=== PATIENT | male | born 1960 | race Caucasian/White ===

== ENCOUNTER 2016-12-01 11:49 | Inpatient (IN) | payer OTHER ==
[2016-12-01 11:54] VITALS: BMI 30.6
[2016-12-01] MEDS ORDERED: FAMOTIDINE 20 MG/50 ML IVPB 50 ML IVPB ONE ×2 (12:26→12:36)
--- NOTE | 2016-12-01 12:26 | PDOC ---
History of Present Illness - General History Source: Patient, Old Records Exam Limitations: No Limitations <Diana Lowe - Last Filed: 12/01/16 14:28> - General History Source: Patient, Family, Spouse, Old Records Exam Limitations: No Limitations - History of Present Illness Initial Comments: 12/01/16 12:30 The patient is a 56-year-old man, accompanied by his and son, with a significant past medical history of hypertension, hypercholesterolemia, myocardial infarction status post cardiac catheterization x3, cardiomegaly, elevated enzymes who presents to the emergency department for further evaluation of abdominal pain. Upon ED arrival, patient was noted to have an oral temperature of 97.6, heart rate of 89, respiratory rate of 20, blood pressure of 157/86 and an oxygen saturation of 96% on room air. As per patient , his symptoms started yesterday, as he did not feel like his usual self. He admits he was experiencing epigastric discomfort but did not pay too much attention to it. This morning, his abdominal pain woke him up from his sleep. He states that his pain today has worsen, as it progressed into a burning sensation upon his epigastrium and feels a as if his epigastrium is hard. His pain is non-radiating, constant since waking up today with a rated 8/10 in severity. He reports associated symptoms of nausea, lightheadedness, palpitations, and generalized body itching He admits to experiencing similar symptoms in the past, for which he underwent an endoscopy and was found to have ulcers. He denies any increase in caffeine intake. Off note: Patient underwent both a stress test and echocardiogram on 07/01/2013 which revealed a small inferolateral ischemia and an ejection fraction of 56% and mild mitral and tricuspid regurgitation, respectively. He denies chest pain, cough, shortness of breath, headache He denies vomiting, diarrhea, changes in bowel habits, dysuria, hematuria, urinary frequency/urgency, flank pain, testicular pain or penile discharge. Allergies: Camphor. Eucalyptus, Menthol. Turpentine oil. Past Surgical History: Kidney stone removal x3. right inguinal hernia repair. Cardiac catheterization x3. Social History: No tobacco and recreational drug use. He reports occasional EtOH use (last drink was approximately 1 week ago) Primary Care Physician: Dr. Edgar Bautista Foot Cutter: Dr. Kirk Calles. <Swati Lovelace - Last Filed: 12/01/16 14:33> - General Chief Complaint: Chest Pain Stated Complaint: PALPITATIONS Time Seen by Provider: 12/01/16 12:11 Past History - Past Medical History Anemia: No Asthma: No Cancer: No Cardiac Disorders: Yes (1 LA, 3 CATHS, CARDIOMEGALY) CVA: No COPD: No CHF: No Dementia: No Diabetes: No GI Disorders: Yes (ABD. PAIN, GALLSTONES) Disorders: No HTN: Yes Hypercholesterolemia: Yes Liver Disease: Yes (ELEVATED ENZYMES, STILL DRINKS ETOH A FEW X PER WEEK) Suicide Attempt (Hx): No Seizures: No Thyroid Disease: No - Surgical History Abdominal Surgery: Yes (RIGHT INGUINAL HERNIA REPAIR) Appendectomy: No Cardiac Surgery: Yes (CARDIAC CATHETERIZATION) Cholecystectomy: No Lung Surgery: No Neurologic Surgery: No Orthopedic Surgery: No - Immunization History Immunization Up to Date: Yes - Psycho/Social/Smoking Cessation Hx Anxiety: No Suicidal Ideation: No Smoking Status: No Smoking History: Never smoked Have you smoked in the past 12 months: No Number of Cigarettes Smoked Daily: 0 Hx Alcohol Use: No Drug/Substance Use Hx: No Substance Use Type: Alcohol Hx Substance Use Treatment: No <Diana Lowe - Last Filed: 12/01/16 14:28> <Swati Lovelace - Last Filed: 12/01/16 14:33> - Past Medical History Allergies/Adverse Reactions: Allergies Allergy/AdvReac Type Severity Reaction Status Date / Time camphor [From Vicks Vaporub] Allergy Verified 12/01/16 11:54 eucalyptus Allergy Verified 12/01/16 11:54 [From Vicks Vaporub] eucalyptus oil Allergy Verified 12/01/16 11:54 [From Vicks Vaporub] menthol [From Vicks Vaporub] Allergy Verified 12/01/16 11:54 turpentine oil Allergy Verified 12/01/16 11:54 [From Vicks Vaporub] Home Medications: Ambulatory Orders Apixaban [Eliquis] 5 mg PO BID 02/22/16 Atorvastatin Ca [Lipitor] 20 mg PO HS 02/22/16 Diltiazem HCl [Diltiazem 24Hr Cd] 180 mg PO DAILY 02/22/16 Nebivolol HCl [Bystolic] 10 mg PO DAILY 02/22/16 Alfuzosin HCl [Uroxatral] 10 mg PO DAILY 12/01/16 Amitriptyline HCl [Elavil -] 25 mg PO HS 12/01/16 Review of Systems - Review of Systems Able to Perform ROS?: Yes Comments:: 12/01/16 12:34 CONSTITUTIONAL: Absent: fever, chills, diaphoresis, generalized weakness, malaise, loss of appetite HEENT: Absent: rhinorrhea, nasal congestion, throat pain, throat swelling, difficulty swallowing, mouth swelling, ear pain, eye pain, visual Changes CARDIOVASCULAR: Present: Palpitations. Lightheadedness. Absent: chest pain, syncope, irregular heart rate,peripheral edema RESPIRATORY: Absent: cough, shortness of breath, dyspnea with exertion, orthopnea, wheezing, stridor, hemoptysis GASTROINTESTINAL: Present: Abdominal Pain. Nausea. Absent: abdominal distension , vomiting, diarrhea, constipation, melena, hematochezia GENITOURINARY: Absent: dysuria, frequency, urgency, hesitancy, hematuria, flank pain, genital pain MUSCULOSKELETAL: Absent: myalgia, arthralgia, joint swelling SKIN: Present: Generalized body itching. Absent: rash, pallor HEMATOLOGIC/IMMUNOLOGIC: Absent: easy bleeding, easy bruising, lymphadenopathy, frequent infections ENDOCRINE:Absent: unexplained weight gain, unexplained weight loss, heat intolerance, cold intolerance NEUROLOGIC: Absent: headache, focal weakness or paresthesias, dizziness, unsteady gait, seizure, mental status changes, bladder or bowel incontinence PSYCHIATRIC: Absent: anxiety, depression, suicidal or homicidal ideation, hallucinations <Swati Lovelace - Last Filed: 12/01/16 14:33> *Physical Exam - Vital Signs Last Vital Signs Temp Pulse Resp BP Pulse Ox 97.6 F 89 20 157/86 96 12/01/16 11:51 12/01/16 11:51 12/01/16 11:51 12/01/16 11:51 12/01/16 11:51 <Diana Lowe - Last Filed: 12/01/16 14:28> - Vital Signs Last Vital Signs Temp Pulse Resp BP Pulse Ox 97.6 F 89 20 157/86 96 12/01/16 11:51 12/01/16 11:51 12/01/16 11:51 12/01/16 11:51 12/01/16 11:51 - Physical Exam Comments: 12/01/16 12:36 GENERAL: Well developed, well nourished. Awake and alert. No acute distress. HEENT: Normocephalic, atraumatic. PERRLA, EOMI. No conjunctival pallor. Sclera are non-icteric. Moist mucous membranes. Oropharynx is clear. NECK: Supple. Full ROM. No JVD. CARDIOVASCULAR: Regular rate and rhythm. No murmurs, rubs, or gallops. PULMONARY: No evidence of respiratory distress. Lungs clear to auscultation bilaterally. No wheezing, rales or rhonchi. ABDOMINAL: Soft. There is some epigatsric and right upper quadrant tenderness without rebound or guarding. Non-distended. No organomegaly. Normoactive bowel sounds. MUSCULOSKELETAL: Normal range of motion at all joints. No bony deformities or tenderness. No CVA tenderness. EXTREMITIES: No cyanosis. No clubbing. No edema. No calf tenderness. SKIN: Warm and dry. Normal capillary refill. No rashes. No jaundice. NEUROLOGICAL: Alert, awake, appropriate. Cranial nerves 2-12 intact. Normal speech. PSYCHIATRIC: Cooperative. Good eye contact. Appropriate mood and affect. <Swati Lovelace - Last Filed: 12/01/16 14:33> ED Treatment Course - LABORATORY CBC & Chemistry Diagram: 12/01/16 12:26 12/01/16 12:26 <Diana Lowe - Last Filed: 12/01/16 14:28> - LABORATORY CBC & Chemistry Diagram: 12/01/16 12:26 12/01/16 12:26 - RADIOLOGY Radiograph Interpretation: 12/01/16 13:19 EXAM: RAD/CHEST X-RAY PORTABLE IMPRESSION: A semi-apical lordotic view reveals a large heart, normal aorta, normal shaylee and clear lung diego. The angles are sharp. The bones and soft tissues are intact. <Swati Lovelace - Last Filed: 12/01/16 14:33> Medical Decision Making - Medical Decision Making 12/01/16 12:57 56-year-old male with history of obstructive sleep apnea, kidney stones, hypertension, LA and GERD presents to the emergency Department with complaints of epigastric pain, nausea and palpitations this morning. Differential diagnosis includes but is not limited to: Pancreatitis, GERD, gastritis, peptic ulcer disease, atypical presentation of ACS, gallbladder disease. Plan: 1. Labs 2. EKG 3. Chest x-ray 4. Pain management 5. Urine analysis 6. Observe and reevaluate 12/01/16 14:28 Addendum: Labs were reviewed and were noted in the EMR. The first set of cardiac enzymes is negative. Given his PMHx and cardiac RF, will admit to tele observation for serial cardiac enzymes. The case was discussed with his PCP who agrees with this plan. <Diana Lowe - Last Filed: 12/01/16 14:28> - Medical Decision Making 12/01/16 14:[address] Edgar Abbasi out to his mobile phone. Case was discussed. 12/01/16 14:24 MicroBlogged Hospitalist. Immediate response. Case was discussed. 12/01/16 14:[address] Kirk Calles. <Swati Lovelace - Last Filed: 12/01/16 14:33> *DC/Admit/Observation/Transfer - Discharge Dispostion Admit: Yes - Attestations Physician Attestion: 12/01/16 12:59 I, Dr. Diana Lowe, attest that the scribes documentation that appears above has been prepared under my direction and personally reviewed by me in its entirety. I confirmed that the note above accurately reflects all work, treatment, procedures, and medical decision-making performed by me. <Diana Lowe - Last Filed: 12/01/16 14:28> - Attestations Scribe Attestion: 12/01/16 12:37 Documentation prepared by Swati Lovelace, acting as medical i d sales for Diana Lowe MD. <Swati Lovelace - Last Filed: 12/01/16 14:33> Diagnosis at time of Disposition: Epigastric abdominal pain, Chest pain - Discharge Dispostion Condition at time of disposition: Stable - Referrals Referrals: Edgar Bautista MD [Primary Care Provider] -
[2016-12-01] MEDS ORDERED: IBUPROFEN 600 MG TABLET (FP) PO ONE (12:30)
[2016-12-01 12:57] LABS: BASOPHIL 0.5 % (0-2.0); MCH 28.7 pg (25.7-33.7); MCHC 33.4 g/dl (32.0-35.9); MEAN CELL VOLUME 85.7 fl (80-96); MEAN PLT VOLUME 9.4 fl (7.5-11.1); NEUTROPHILS 76.7 % (42.8-82.8); PLATELET COUNT 149 K/MM3 (134-434); RDW 12.8 % (11.9-15.9); WHITE BLOOD COUNT 8.6 K/mm3 (4.0-10.0)
[2016-12-01] MEDS ORDERED: MAG HYDROX/AL HYDROX/SIMETH 30 ML UNIT-DOSE CUP ONE (12:59)
[2016-12-01 13:31] LABS: HIV 1 & 2 AB NEGATIVE; HIV 1 AGp24 NEGATIVE
[2016-12-01 13:44] LABS: ALBUMIN 3.4 g/dl (3.4-5.0); ALK PHOS 77 U/L (45-117); ANION GAP 11 (8-16); BILIRUBIN,TOTAL 0.4 mg/dL (0.2-1.0); CALCIUM 8.3 mg/dL (8.5-10.1); CO2 24 mmol/L (21-32); COCKROFT - GAULT 102.93; CREATININE 0.9 mg/dL (0.7-1.3); GLUCOSE,RANDOM 116 mg/dL (74-106); PHOSPHOROUS 3.3 mg/dL (2.5-4.9); SGOT/AST 41 U/L (15-37); SGPT/ALT 60 U/L (12-78); TOT PROT 6.4 g/dl (6.4-8.2); TROPONIN I < 0.02 ng/ml (0.00-0.05)
[2016-12-01 14:54] LABS: URINE APPEARANCE CLEAR; URINE BILIRUBIN NEGATIVE (NEGATIVE); URINE BLOOD NEGATIVE (NEGATIVE); URINE COLOR YELLOW; URINE GLUCOSE (UA) NEGATIVE (NEGATIVE); URINE KETONE NEGATIVE (NEGATIVE); URINE LEUK ESTERASE NEGATIVE (NEGATIVE); URINE NITRITE NEGATIVE (NEGATIVE); URINE UROBILINOGEN NEGATIVE E.U./dl (0.2-1.0)
[2016-12-01 15:23] LABS: URINE PROTEIN 2+ (NEGATIVE)
[2016-12-01 15:26] LABS: GRANULAR CASTS 1 /lpf; URINE HYALINE CAST 4 /lpf; URINE MUCUS MODERATE; URINE RBC <1 /hpf (0-3); URINE WBC 1 /hpf (3-5)
--- NOTE | 2016-12-01 16:11 | EKG ---
Test Reason : Blood Pressure : / mmHG Vent. Rate : 079 BPM Atrial Rate : 079 BPM P-R Int : 152 ms QRS Dur : 114 ms QT Int : 386 ms P-R-T Axes : 065 036 068 degrees QTc Int : 442 ms NORMAL SINUS RHYTHM MINIMAL VOLTAGE CRITERIA FOR LVH, MAY BE NORMAL VARIANT NONSPECIFIC T WAVE ABNORMALITY ABNORMAL ECG WHEN COMPARED WITH ECG OF 22-FEB-2016 18:47, NO SIGNIFICANT CHANGE WAS FOUND Confirmed by DOMINIC THEODORE MD ([id number]) on 12/01/2016 4:10:51 PM Referred By: Confirmed By:DOMINIC THEODORE MD
--- NOTE | 2016-12-01 17:12 | HP ---
CHIEF COMPLAINT: Abdominal pain, epigastric discomfort PCP: Dr. Edgar Bautista Non Destructive Evaluation Specialist: Dr. Kirk Calles. HISTORY OF PRESENT ILLNESS: The patient is a 56-year-old man with a significant past medical history of hypertension, hypercholesterolemia, myocardial infarction status post cardiac catheterization x3, cardiomegaly and elevated enzymes. He presented to the ED for who presents to the emergency department for further evaluation of abdominal pain and epigastric burning pain that begun yesterday. He states that the epigastric pain is constant, radiates to his right hand, with moderate intensity. He reported that his pain is associated with nausea, lightheadedness, palpitations, and generalized body itching. ER course was notable for: (1) K. 3.4, AST 41 (2) EKG NSR-non specific t wave abnormality (3) Troponin negative x 1 Recent Travel: denies PAST MEDICAL HISTORY: hypertension, hypercholesterolemia, myocardial infarction status post cardiac catheterization x3, cardiomegaly PAST SURGICAL HISTORY:Kidney stone removal x3. right inguinal hernia repair. Cardiac catheterization x3. Social History: Smoking:denies Alcohol:occasional EtOH use, non recent Drugs: denies Family History: Allergies camphor [From Vicks Vaporub] Allergy (Verified 12/01/16 11:54) eucalyptus [From Vicks Vaporub] Allergy (Verified 12/01/16 11:54) eucalyptus oil [From Vicks Vaporub] Allergy (Verified 12/01/16 11:54) menthol [From Vicks Vaporub] Allergy (Verified 12/01/16 11:54) turpentine oil [From Vicks Vaporub] Allergy (Verified 12/01/16 11:54) HOME MEDICATIONS: Home Medications Medication Instructions Recorded Apixaban [Eliquis] 5 mg PO BID 02/22/16 Atorvastatin Ca [Lipitor] 20 mg PO HS 02/22/16 Diltiazem HCl [Diltiazem 24Hr Cd] 180 mg PO DAILY 02/22/16 Nebivolol HCl [Bystolic] 10 mg PO DAILY 02/22/16 Alfuzosin HCl [Uroxatral] 10 mg PO DAILY 12/01/16 Amitriptyline HCl [Elavil -] 25 mg PO HS 12/01/16 REVIEW OF SYSTEMS CONSTITUTIONAL: Absent: fever, chills, diaphoresis, generalized weakness, malaise, weight change HEENT: Absent: rhinorrhea, nasal congestion, throat pain, throat swelling, difficulty swallowing, mouth swelling, ear pain, eye pain, visual changes CARDIOVASCULAR: Absent: chest pain, syncope, palpitations, irregular heart rate, lightheadedness , peripheral edema RESPIRATORY: Absent: cough, shortness of breath, dyspnea with exertion, orthopnea, wheezing, stridor, hemoptysis GASTROINTESTINAL: Present: epigastric "burning" sensation associated with nausea/vomiting/ dizziness and palpitations, +pain on light palpation of epigastric region GENITOURINARY: Absent: dysuria, frequency, urgency, hesitancy, hematuria, flank pain, genital pain MUSCULOSKELETAL: Absent: myalgia, arthralgia, joint swelling, back pain, neck pain SKIN: Absent: rash, itching, pallor HEMATOLOGIC/IMMUNOLOGIC: Absent: easy bleeding, easy bruising, lymphadenopathy, frequent infections ENDOCRINE: Absent: unexplained weight gain, unexplained weight loss, heat intolerance, cold intolerance NEUROLOGIC: Absent: headache, focal weakness or paresthesias, dizziness, unsteady gait, seizure, mental status changes, bladder or bowel incontinence PSYCHIATRIC: Absent: anxiety, depression, suicidal or homicidal ideation, hallucinations. PHYSICAL EXAMINATION Vital Signs - 24 hr 12/01/16 12/01/16 15:52 15:54 Temperature 97.8 F Pulse Rate [ 72 Apical] Respiratory 17 Rate Blood Pressure 159/89 [Right Arm] O2 Sat by Pulse 98 Oximetry (%) GENERAL: Awake, alert, and fully oriented, in no acute distress. HEAD: Normal with no signs of trauma. EYES: Pupils equal, round and reactive to light, extraocular movements intact, sclera anicteric, conjunctiva clear. No lid lag. EARS, NOSE, THROAT: Ears normal, nares patent, oropharynx clear without exudates. Moist mucous membranes. NECK: Normal range of motion, supple without lymphadenopathy, JVD, or masses. LUNGS: Breath sounds equal, clear to auscultation bilaterally. No wheezes HEART: Regular rate and rhythm ABDOMEN: +bowel sounds, epigastric "burning" sensation associated with nausea/ vomiting/dizziness and palpitations, +pain on light palpation of epigastric region MUSCULOSKELETAL: Normal range of motion at all joints. No bony deformities or tenderness. No CVA tenderness. UPPER EXTREMITIES: 2+ pulses, warm, well-perfused. No cyanosis. No clubbing. No peripheral edema. LOWER EXTREMITIES: 2+ pulses, warm, well-perfused. No calf tenderness. No peripheral edema. NEUROLOGICAL: Normal speech. steady gait PSYCHIATRIC: Cooperative. Good eye contact. Appropriate mood and affect. SKIN: Warm, dry, normal turgor, no rashes or lesions noted, normal capillary refill. ASSESSMENT/PLAN: The patient is a 56-year-old man with a significant past medical history of hypertension, hypercholesterolemia, myocardial infarction status post cardiac catheterization x3, cardiomegaly and elevated enzymes. He presented to the ED for who presents to the emergency department for further evaluation of abdominal pain and epigastric burning pain that begun yesterday. He states that the epigastric pain is constant, radiates to his right hand, with moderate intensity. He reported that his pain is associated with nausea, lightheadedness, palpitations, and generalized body itching. On exam, he states that he has had this epigastric discomfort in the past but this time the burning sensation is much worse. He denies chest pain or shortness of breath. GI: Abdominal pain/Epigastric pain associated with palpitations/Rule out ACS- acute ACS vs, pancreatitis, gastritis, ulcers Assessment/Plan: Troponin negative x 1, continue to trend Will start on Protonix BID IV for the epigastric discomfort On clear liquids diet Schedule Zofran q6 and monitor If worsening epigastric/abdominal pain, consider GI consult Cardiology consult Cardiology: Atrial fibrillation Assessment/Plan: Now in normal sinus rhythm Rate control with Diltiazem HCL 180mg daily On Eliquis for anticoagulation Hypertension - controlled Assessment/Plan: On Bystolic 10mg daily Diltiazem HCL Monitor on tele Hyperlipidemia Assesment/Plan: Will continue home meds Lipid panel in a.m. : BPH - chronic Assessement/Plan: On Uroxatral 10mg daily Obstructive sleep apnea: Assessment/Plan: CPAP at night F.E.N. Fluids: tolerating PO Electrolytes: slightly Hypokalemia - monitor BMP Nutrition: Clears Prophylaxis: GI: Protonix 40 IV BID DVT: On Eliquis Disposition: Requires inpatient hospitalization. Full Code. Visit type - Emergency Visit Emergency Visit: Yes ED Registration Date: 12/01/16 Care time: The patient presented to the Emergency Department on the above date and was hospitalized for further evaluation of their emergent condition. - New Patient This patient is new to me today: Yes Date on this admission: 12/02/16 - Critical Care Critical Care patient: No
[2016-12-01] MEDS: ONDANSETRON 4 MG/2 ML VIAL IVPUSH SCH (18:20)
[2016-12-01 21:04] LABS: TROPONIN I 0.03 ng/ml (0.00-0.05)
[2016-12-01] MEDS: PANTOPRAZOLE SODIUM 40 MG/100 ML PRE-DOCKED IVPB SCH (21:39)
[2016-12-01] MEDS: APIXABAN 5 MG TABLET PO SCH (21:43)
[2016-12-01] MEDS: AMITRIPTYLINE HCL 25 MG TABLET (FP) PO SCH (21:43)
[2016-12-01] MEDS ORDERED: PANTOPRAZOLE SODIUM 40 MG in SODIUM CHLORIDE 100 ML IVPB SCH (22:00)
[2016-12-01] MEDS ORDERED: ATORVASTATIN CA 20 MG TABLET (FP) PO SCH (22:00)
[2016-12-02] MEDS: ONDANSETRON 4 MG/2 ML VIAL IVPUSH SCH ×4 (02:14→18:24)
[2016-12-02 08:04] LABS: BASOPHIL 0.5 % (0-2.0); EOSINOPHIL 10.2 % (0-4.5); MCH 29.7 pg (25.7-33.7); MCHC 34.4 g/dl (32.0-35.9); MEAN CELL VOLUME 86.4 fl (80-96); MEAN PLT VOLUME 10.2 fl (7.5-11.1); NEUTROPHILS 54.5 % (42.8-82.8); PLATELET COUNT 153 K/MM3 (134-434); RDW 13.1 % (11.9-15.9); WHITE BLOOD COUNT 8.1 K/mm3 (4.0-10.0)
--- NOTE | 2016-12-02 08:08 | CON.CARD ---
Consult Consult Specialty:: cardio Referred by:: hospitalist (for karine) Reason for Consultation:: abd pain - History of Present Illness Chief Complaint: same History of Present Illness: 56 yo male here with cp and abd pain. pt well know to me from office. has had chronic cp syndrome x 3-4 years, for which cardiac cath showed no signif obstructive CAD. the nature of these sx's have been elusive, ? related to GERD for which he has seen GI and had EGD not long ago. he also has frequent palpitations, at times occurring daily--multiple event monitors have failed to document a treatable arrhythmia as the correlate of his sx's. he has had one documented episode of atrial fibrillation in the past. pt states he has been having pains L and R pectoral region, similar to previous. also sometimes upper abd/epigastric pain. sometimes feels acid radiating up to throat. palpitations are frequent, stable at his longstanding baseline no syncope, leg swelling sleep apnea sx's stable, using cpap PMH: MICHELLE s/p ENT surgery, uses cpap HTN GERD with erosive gastritis on EGD 07/2014 - Alcohol/Substance Use Hx Alcohol Use: Yes (only for social purpose) - Smoking History Smoking history: Never smoked Have you smoked in the past 12 months: No Aproximately how many cigarettes per day: 0 Home Medications - Allergies Allergies/Adverse Reactions: Allergies Allergy/AdvReac Type Severity Reaction Status Date / Time camphor [From Vicks Vaporub] Allergy Verified 12/01/16 11:54 eucalyptus Allergy Verified 12/01/16 11:54 [From Vicks Vaporub] eucalyptus oil Allergy Verified 12/01/16 11:54 [From Vicks Vaporub] menthol [From Vicks Vaporub] Allergy Verified 12/01/16 11:54 turpentine oil Allergy Verified 12/01/16 11:54 [From Vicks Vaporub] - Home Medications Home Medications: Ambulatory Orders Apixaban [Eliquis] 5 mg PO BID 02/22/16 Atorvastatin Ca [Lipitor] 20 mg PO HS 02/22/16 Diltiazem HCl [Diltiazem 24Hr Cd] 180 mg PO DAILY 02/22/16 Nebivolol HCl [Bystolic] 10 mg PO DAILY 02/22/16 Alfuzosin HCl [Uroxatral] 10 mg PO DAILY 12/01/16 Amitriptyline HCl [Elavil -] 25 mg PO HS 12/01/16 Review of Systems - Review of Systems Constitutional: denies: Chills, Fever Eyes: denies: Eye Pain HENT: denies: Nasal Congestion Neck: denies: Stiffness Cardiovascular: reports: Palpitations. denies: Edema Respiratory: reports: PND (c/w his sleep apnea sx). denies: Orthopnea Gastrointestinal: denies: Diarrhea, Rectal Bleeding Genitourinary: denies: Burning, Hematuria Musculoskeletal: denies: Muscle Pain Integumentary: denies: Rash Neurological: denies: Numbness, Seizure, Syncope Endocrine: denies: Excessive Sweating Hematology/Lymphatic: denies: Excessive Bleeding Vital Signs: Vital Signs Temperature 98 F 12/02/16 04:00 Pulse Rate 70 12/02/16 04:00 Respiratory Rate 18 12/02/16 04:00 Blood Pressure 146/92 12/02/16 04:00 O2 Sat by Pulse Oximetry (%) 98 12/02/16 01:33 Constitutional: Yes: Well Nourished, No Distress Eyes: No: Sclera Icterus HENT: No: Nasal Congestion Neck: No: Decreased ROM Respiratory: Yes: CTA Bilaterally. No: Accessory Muscle Use, Rales, Wheezes Gastrointestinal: Yes: Normal Bowel Sounds. No: Distention, Hepatomegaly, Palpable Mass, Tenderness Cardiovascular: Yes: Regular Rate and Rhythm JVD: No Carotid Bruit: No PMI: Non-Displaced Heart Sounds: Yes: S1, S2. No: Gallop Murmur: No: Systolic Murmur, Diastolic Murmur Musculoskeletal: Yes: Other (No kyphosis) Extremities: No: Cold, Cyanosis Edema: No Peripheral Pulses: 2+ Left Carotid, 2+ Right Carotid, 2+ Left Doralis Pedis, 2+ Right Dorsalis Pedis Integumentary: No: Jaundice Neurological: Yes: Alert, Oriented (x3) Psychiatric: No: Agitated - Other Data Labs, Other Data: Troponin, BNP 12/01/16 20:08 Troponin I 0.03 D Troponin, BNP 12/01/16 20:08 Troponin I 0.03 D Laboratory Tests 12/01/16 12/01/16 12/01/16 12:26 12:26 20:08 WBC 8.6 D Hgb 14.0 Plt Count 149 D Sodium 140 Potassium 3.4 L Carbon Dioxide 24 BUN 15 D Creatinine 0.9 D AST 41 H D ALT 60 D Creatine Kinase 199 D 185 Troponin I < 0.02 0.03 D Triglycerides Cholesterol Total LDL Cholesterol HDL Cholesterol Lipase 101 12/02/16 12/02/16 05:35 05:35 WBC 8.1 Hgb 13.6 Plt Count 153 Sodium 141 Potassium 3.5 Carbon Dioxide 28 BUN 12 Creatinine 0.9 AST ALT Creatine Kinase 143 Troponin I 0.02 D Triglycerides 218 H D Cholesterol 127 Total LDL Cholesterol 45 D HDL Cholesterol 63 H Lipase tele: NSR ekg x2 12/01: NSR, normal axis/interv; no path q's; no ST-Ts Imaging - Results Chest X-ray: Report Reviewed (clear lungs/pleura) Assessment/Plan paroxysmal afib: -CHADS VASC 1, on eliquis -no documented AF in long time (despite ongoing frequent palpitation sx's0 -cont bystolic (loss of bp control in past with attempt to change to alternate b -tony) -? 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 GERD -PPI trial to start abd pain: -suspect ongoing GERD sx's, r/o PUD -erosive gastritis on EGD 2014, rx'd omeparazole 40 qd then -pt not taking any PPI, was supposed to f/u with dr milton to discuss this, per my instrxns to him at last o.v. with me--says has not yet seen him -started PPI here -consider GI eval--per hospitalist -? diltiazem exacerbating GERD sx's--med d/c'd -trop neg x 2 here HTN: -bp reasonably controlled here -stopping diltiazem as above -add valsartan 320 instead
[2016-12-02 08:48] LABS: CALCIUM 8.1 mg/dL (8.5-10.1); COCKROFT - GAULT 102.93; CREATININE 0.9 mg/dL (0.7-1.3); MAGNESIUM 2.2 mg/dL (1.8-2.4); PHOSPHOROUS 3.2 mg/dL (2.5-4.9); TROPONIN I 0.02 ng/ml (0.00-0.05)
[2016-12-02] MEDS ORDERED: PANTOPRAZOLE 40 MG TABLET (FP) PO SCH (10:00)
[2016-12-02] MEDS: NEBIVOLOL 10 MG TABLET (FP) PO SCH (10:35)
[2016-12-02] MEDS: VALSARTAN 160 MG TABLET (UD) PO SCH (10:35)
[2016-12-02] MEDS: APIXABAN 5 MG TABLET PO SCH ×2 (10:36→21:58)
[2016-12-02] MEDS: TAMSULOSIN HCL 0.4 MG CAP.ER.24H (FP) PO SCH (10:36)
[2016-12-02] MEDS: PANTOPRAZOLE SODIUM 40 MG/100 ML PRE-DOCKED IVPB SCH (10:36)
[2016-12-02] MEDS ORDERED: METOCLOPRAMIDE HCL INJECTION 10 MG/2 ML VIAL IVPB PRN (11:13)
--- NOTE | 2016-12-02 11:17 | PN ---
Physical Exam: SUBJECTIVE: Patient seen and examined. States the epigastric pain is slightly better. Denies any pain. OBJECTIVE: Abdominal xray 12/02/2016 shows distended small bowel loops, possible SBO or partial small bowel obstruction Added Reglan q6h scheduled NPO for now to allow bowel rest PO meds OK to be given, IVF added GI consulted Vital Signs Period Temp Pulse Resp BP Sys/Harper Pulse Ox Last 24 Hr 97.4 F-98.3 F 68-79 17-20 146-159/71-92 96-98 GENERAL: Awake, alert, and fully oriented, in no acute distress. HEAD: Normal with no signs of trauma. EYES: Pupils equal, round and reactive to light, extraocular movements intact, sclera anicteric, conjunctiva clear. No lid lag. EARS, NOSE, THROAT: Ears normal, nares patent, oropharynx clear without exudates. Moist mucous membranes. NECK: Normal range of motion, supple without lymphadenopathy, JVD, or masses. LUNGS: Breath sounds equal, clear to auscultation bilaterally. No wheezes HEART: Regular rate and rhythm ABDOMEN: +bowel sounds, epigastric "burning" sensation associated with nausea/ vomiting/dizziness and palpitations, +pain on light palpation of epigastric region MUSCULOSKELETAL: Normal range of motion at all joints. No bony deformities or tenderness. No CVA tenderness. UPPER EXTREMITIES: 2+ pulses, warm, well-perfused. No cyanosis. No clubbing. No peripheral edema. LOWER EXTREMITIES: 2+ pulses, warm, well-perfused. No calf tenderness. No peripheral edema. NEUROLOGICAL: Normal speech. steady gait PSYCHIATRIC: Cooperative. Good eye contact. Appropriate mood and affect. SKIN: Warm, dry, normal turgor, no rashes or lesions noted, normal capillary refill. Laboratory Results - last 24 hr 12/01/16 12/01/16 12/02/16 20:08 20:08 05:35 WBC 8.1 RBC 4.59 Hgb 13.6 Hct 39.7 MCV 86.4 MCHC 34.4 RDW 13.1 Plt Count 153 MPV 10.2 Neutrophils % 54.5 D Lymphocytes % 28.3 D Monocytes % 6.5 Eosinophils % 10.2 H D Basophils % 0.5 Sodium Potassium Chloride Carbon Dioxide Anion Gap BUN Creatinine Random Glucose Hemoglobin A1c % Calcium Phosphorus Magnesium Creatine Kinase 185 CK-MB (CK-2) 1.569 CK-MB (CK-2) Rel Index Cancelled Troponin I 0.03 D Triglycerides Cholesterol Total LDL Cholesterol HDL Cholesterol 12/02/16 12/02/16 05:35 05:35 WBC RBC Hgb Hct MCV MCHC RDW Plt Count MPV Neutrophils % Lymphocytes % Monocytes % Eosinophils % Basophils % Sodium 141 Potassium 3.5 Chloride 106 Carbon Dioxide 28 Anion Gap 7 L BUN 12 Creatinine 0.9 Random Glucose 95 Hemoglobin A1c % 5.9 Calcium 8.1 L Phosphorus 3.2 Magnesium 2.2 Creatine Kinase 143 CK-MB (CK-2) CK-MB (CK-2) Rel Index Troponin I 0.02 D Triglycerides 218 H D Cholesterol 127 Total LDL Cholesterol 45 D HDL Cholesterol 63 H Active Medications Generic Name Dose Route Start Last Admin Trade Name Freq PRN Reason Stop Dose Admin Amitriptyline HCl 25 mg 12/01/16 22:00 12/01/16 21:43 Elavil - PO 25 mg HS JARROD Administration Apixaban 5 mg 12/01/16 22:00 12/02/16 10:36 Eliquis - PO 5 mg BID JARROD Administration Atorvastatin Calcium 20 mg 12/01/16 22:00 12/01/16 21:43 Lipitor - PO 20 mg HS JARROD Administration Dextrose/Sodium Chloride 1,000 mls @ 75 mls/hr 12/02/16 11:30 D5-Ns - IV ASDIR JARROD Metoclopramide HCl 10 mg 12/02/16 11:13 Reglan Injection - IVPB Q6H PRN NAUSEA AND/OR VOMITING Nebivolol 10 mg 12/02/16 10:00 12/02/16 10:35 Bystolic - PO 10 mg DAILY JARROD Administration Ondansetron HCl 4 mg 12/01/16 18:00 12/02/16 06:26 Zofran Injection IVPUSH Not Given Q6HPO JARROD Pantoprazole Sodium 40 mg 12/03/16 10:00 Protonix 40mg Ivpb (Pre-Docked) IVPB DAILY JARROD Tamsulosin HCl 0.4 mg 12/02/16 08:30 12/02/16 10:36 Flomax - PO 0.4 mg DAILY@0830 JARROD Administration Valsartan 320 mg 12/02/16 10:00 12/02/16 10:35 Diovan - PO 320 mg DAILY JARROD Administration ASSESSMENT/PLAN: The patient is a 56-year-old man with a significant past medical history of hypertension, hypercholesterolemia, myocardial infarction status post cardiac catheterization x3, cardiomegaly and elevated enzymes. He presented to the ED for further evaluation of abdominal pain and epigastric burning pain that began on 11/30/16. He states that the epigastric pain is constant, radiates to his right hand, with moderate intensity. He reported that his pain is associated with nausea, lightheadedness, palpitations, and generalized body itching. He denies chest pain or shortness of breath. Imaging: Abdominal xray 12/02/2016 shows distended small bowel loops, possible SBO or partial small bowel obstruction GI: Abdominal pain/Epigastric pain - acute pancreatitis, gastritis, ulcers Assessment/Plan: Abdominal xray 12/02/2016 shows distended small bowel loops, possible SBO or partial small bowel obstruction Added Reglan q6h scheduled, Protonix IV daily NPO for now to allow bowel rest PO meds OK to be given, IVF added GI consulted for possible SBO Will repeat abdominal xray in a.m. Cardiology: Hypertension Assessment/Plan: Now on Diovan 320mg PO daily On Bystolic 10mg daily Monitor BP Cardiology following Rule out ACS/Palpitations Assessment/Plan: Denies chest pain, denies any further palpitations Troponins negative x 3 Paroxysmal atrial fibrillation Assessment/Plan: On Eliquis BID Diltiazem stopped as per internal medicine physician assistant Hyperlipidemia Assessment/Plan: Lipid panel reviewed Lipitor dose increased : BPH - chronic Assessement/Plan: On Uroxatral 10mg daily Obstructive sleep apnea: Assessment/Plan: CPAP at night F.E.N. Fluids: d5 ns @75/cc/hr Electrolytes: monitor BMP Nutrition: NPO Prophylaxis: GI: Protonix 40 mg DVT: On Eliquis Disposition: Requires inpatient hospitalization. Full Code. Visit type - Emergency Visit Emergency Visit: Yes ED Registration Date: 12/01/16 Care time: The patient presented to the Emergency Department on the above date and was hospitalized for further evaluation of their emergent condition. - New Patient This patient is new to me today: No - Critical Care Critical Care patient: No - Discharge Referral Referred to [facility] No
[2016-12-02] MEDS: METOCLOPRAMIDE HCL INJECTION 10 MG/2 ML VIAL IVPB SCH ×3 (12:58→21:15)
[2016-12-02] MEDS: DEXTROSE 5%-NORMAL SALINE 1,000 ML IV SCH (13:25)
[2016-12-02] MEDS ORDERED: SODIUM PHOSPHATE/NA BIPHOS 133 ML ENEMA PR ONE (21:35)
--- NOTE | 2016-12-02 21:35 | CON.GI ---
Consult Consult Specialty:: Gastroenterology Referred by:: Hospitalist Reason for Consultation:: abdominal pain - History of Present Illness History of Present Illness: The patient is a 56-year-old man with a significant past medical history of hypertension, hypercholesterolemia, myocardial infarction status post cardiac catheterization x3, cardiomegaly and elevated enzymes. He presented to the ED for who presents to the emergency department for further evaluation of abdominal pain and epigastric burning pain that begun yesterday. He states that the epigastric pain is constant, radiates to his right hand, with moderate intensity. He reported that his pain is associated with nausea, lightheadedness, palpitations, and generalized body itching. This evening he denies epigastric pain, no nausea, no vomiting. He is very hungry. In the Er, he had dilated loops of small bowel associated with retained stool in the colon. - Alcohol/Substance Use Hx Alcohol Use: Yes (only for social purpose) - Smoking History Smoking history: Never smoked Have you smoked in the past 12 months: No Aproximately how many cigarettes per day: 0 Home Medications - Allergies Allergies/Adverse Reactions: Allergies Allergy/AdvReac Type Severity Reaction Status Date / Time camphor [From Vicks Vaporub] Allergy Verified 12/01/16 11:54 eucalyptus Allergy Verified 12/01/16 11:54 [From Vicks Vaporub] eucalyptus oil Allergy Verified 12/01/16 11:54 [From Vicks Vaporub] menthol [From Vicks Vaporub] Allergy Verified 12/01/16 11:54 turpentine oil Allergy Verified 12/01/16 11:54 [From Vicks Vaporub] - Home Medications Home Medications: Ambulatory Orders Apixaban [Eliquis] 5 mg PO BID 02/22/16 Atorvastatin Ca [Lipitor] 20 mg PO HS 02/22/16 Diltiazem HCl [Diltiazem 24Hr Cd] 180 mg PO DAILY 02/22/16 Nebivolol HCl [Bystolic] 10 mg PO DAILY 02/22/16 Alfuzosin HCl [Uroxatral] 10 mg PO DAILY 12/01/16 Amitriptyline HCl [Elavil -] 25 mg PO HS 12/01/16 Physical Exam-GI Vital Signs: Vital Signs Temperature 98.5 F 12/02/16 20:35 Pulse Rate 67 12/02/16 20:35 Respiratory Rate 18 12/02/16 20:35 Blood Pressure 146/67 12/02/16 20:35 O2 Sat by Pulse Oximetry (%) 96 12/02/16 20:35 Constitutional: Yes: Well Nourished Eyes: Yes: Conjunctiva Clear HENT: Yes: Atraumatic Neck: Yes: Supple Cardiovascular: Yes: Regular Rate and Rhythm Respiratory: Yes: CTA Bilaterally ...Palpate: Yes: Soft. No: Firm/Rigid, Guarding, Hepatomegaly, Mass, Pulsatile Mass, Splenomegaly, Tenderness Labs: CBC, BMP 12/02/16 05:35 12/02/16 05:35 Imaging - Results X-ray: Image Reviewed (both FUA reviwed no air fluid level, not films consistent with non-specific gas pattern, doubt SBO) Problem List - Problems (1) Epigastric abdominal pain Assessment/Plan: r/o pepeptic ulcer disease, unlikely to have small bowel obstruction, does not fit the clinical picture R> advance diet maitain PPI Code(s): R10.13 - EPIGASTRIC PAIN
[2016-12-02] MEDS: ATORVASTATIN CA 40 MG TABLET (FP) PO SCH (21:58)
[2016-12-02] MEDS: AMITRIPTYLINE HCL 25 MG TABLET (FP) PO SCH (21:58)
[2016-12-03] MEDS: ONDANSETRON 4 MG/2 ML VIAL IVPUSH SCH ×4 (00:32→17:31)
[2016-12-03] MEDS: METOCLOPRAMIDE HCL INJECTION 10 MG/2 ML VIAL IVPB SCH ×4 (03:32→21:20)
[2016-12-03 07:39] LABS: BASOPHIL 0.3 % (0-2.0); EOSINOPHIL 7.8 % (0-4.5); MCH 29.1 pg (25.7-33.7); MCHC 33.8 g/dl (32.0-35.9); MEAN CELL VOLUME 86.2 fl (80-96); PLATELET COUNT 146 K/MM3 (134-434); RDW 12.8 % (11.9-15.9); WHITE BLOOD COUNT 6.9 K/mm3 (4.0-10.0)
[2016-12-03] MEDS ORDERED: PT OWN MED DRAWER 7, Y5N ONE (08:21)
[2016-12-03 08:54] LABS: ANION GAP 10 (8-16); CALCIUM 8.2 mg/dL (8.5-10.1); CO2 27 mmol/L (21-32); GLUCOSE,RANDOM 92 mg/dL (74-106); SGOT/AST 40 U/L (15-37); SGPT/ALT 55 U/L (12-78)
[2016-12-03 08:56] LABS: ALK PHOS 77 U/L (45-117); BILIRUBIN,TOTAL 0.6 mg/dL (0.2-1.0); COCKROFT - GAULT 102.93; CREATININE 0.9 mg/dL (0.7-1.3)
--- NOTE | 2016-12-03 09:04 | EKG ---
Test Reason : Blood Pressure : / mmHG Vent. Rate : 068 BPM Atrial Rate : 068 BPM P-R Int : 146 ms QRS Dur : 102 ms QT Int : 376 ms P-R-T Axes : 047 024 055 degrees QTc Int : 399 ms NORMAL SINUS RHYTHM NORMAL ECG WHEN COMPARED WITH ECG OF 01-DEC-2016 11:58, NO SIGNIFICANT CHANGE WAS FOUND Confirmed by DOMINIC THEODORE MD ([id number]) on 12/03/2016 9:04:27 AM Referred By: Confirmed By:DOMINIC THEODORE MD
[2016-12-03] MEDS: NEBIVOLOL 10 MG TABLET (FP) PO SCH (09:09)
[2016-12-03] MEDS: VALSARTAN 160 MG TABLET (UD) PO SCH (09:09)
[2016-12-03] MEDS: APIXABAN 5 MG TABLET PO SCH ×2 (09:10→21:20)
[2016-12-03] MEDS: TAMSULOSIN HCL 0.4 MG CAP.ER.24H (FP) PO SCH (09:10)
[2016-12-03] MEDS: PANTOPRAZOLE SODIUM 40 MG/100 ML PRE-DOCKED IVPB SCH (09:12)
--- NOTE | 2016-12-03 10:47 | PN ---
Progress Note, Physician Chief Complaint: cp, palpitations History of Present Illness: very localized L and R pectoral cp a little bit yest--much better than at home; no sob, palpit, syncope - Current Medication List Current Medications: Active Medications Amitriptyline HCl (Elavil -) 25 mg PO HS [facility] Last Admin: 12/02/16 21:58 Dose: 25 mg Apixaban (Eliquis -) 5 mg PO BID [facility] Last Admin: 12/03/16 09:10 Dose: 5 mg Atorvastatin Calcium (Lipitor -) 40 mg PO HS [facility] Last Admin: 12/02/16 21:58 Dose: 40 mg Dextrose/Sodium Chloride (D5-Ns -) 1,000 mls @ 75 mls/hr IV ASDIR [facility] Last Admin: 12/02/16 13:25 Dose: 75 mls/hr Potassium Chloride (Potassium Chloride 10 Meq Premix Ivpb -) 100 mls @ 100 mls/ hr IVPB Q60M [facility] Stop: 12/03/16 12:29 Metoclopramide HCl (Reglan Injection -) 10 mg IVPB Q6H-IV [facility] Last Admin: 12/03/16 09:10 Dose: 10 mg Nebivolol (Bystolic -) 10 mg PO DAILY [facility] Last Admin: 12/03/16 09:09 Dose: 10 mg Ondansetron HCl (Zofran Injection) 4 mg IVPUSH Q6HPO [facility] Last Admin: 12/03/16 05:40 Dose: 4 mg Pantoprazole Sodium (Protonix 40mg Ivpb (Pre-Docked)) 40 mg IVPB DAILY [facility] Last Admin: 12/03/16 09:12 Dose: 40 mg Tamsulosin HCl (Flomax -) 0.4 mg PO DAILY@0830 [facility] Last Admin: 12/03/16 09:10 Dose: 0.4 mg Valsartan (Diovan -) 320 mg PO DAILY [facility] Last Admin: 12/03/16 09:09 Dose: 320 mg - Objective Vital Signs: Vital Signs Temperature 98.7 F 12/03/16 06:00 Pulse Rate 73 12/03/16 06:00 Respiratory Rate 18 12/03/16 06:00 Blood Pressure 136/75 12/03/16 06:00 O2 Sat by Pulse Oximetry (%) 97 12/03/16 00:21 Constitutional: Yes: Well Nourished, No Distress, Calm Cardiovascular: Yes: Regular Rate and Rhythm, S1, S2. No: Gallop, Murmur Respiratory: Yes: Regular, CTA Bilaterally. No: Accessory Muscle Use, Rales, Wheezes Extremities: No: Cold Edema: No Neurological: Yes: Alert, Oriented Psychiatric: No: Agitated Labs: CBC, BMP 12/03/16 05:35 12/03/16 05:35 Assessment/Plan paroxysmal afib: -CHADS VASC 1, on eliquis -no documented AF in long time (despite ongoing frequent palpitation sx's0 -cont bystolic (loss of bp control in past with attempt to change to alternate b -tony) -d/c diltiazem (added by me to try to help with palpitations--? worsening GERD sx's/abd pain by reducing GE sphincter tone?) atyp CP syndrome/abd pain: -has had longstanding cp despite non-obstructive cors at cath -troponins neg here, no ecg changes -sx's non-anginal in description, not suspicious for vasospasm or microvasc endothelial dysfunction -erosive gastritis on EGD 2014, rx'd omeparazole 40 qd then but he's not been taking -? present sx's are GERD/PUD related -on PPI, plan per dr hodge -d/c CCB, as above HTN: -bp reasonably controlled here -stopping diltiazem as above -add valsartan 320 instead MICHELLE: -s/p uvuloplasty, residual apnea persists after so on CPAP per ENT
[2016-12-03] MEDS: KCL 10 MEQ IVPB 100 ML IVPB SCH ×2 (11:09→11:51)
[2016-12-03] MEDS: DEXTROSE 5%-NORMAL SALINE 1,000 ML IV SCH (12:05)
--- NOTE | 2016-12-03 18:32 | PN ---
Physical Exam: SUBJECTIVE: Patient seen and examined. He denies chest pain or shortness of breath Tolerating clear liquid diet Denies abdominal pain States he had BM yesterday OBJECTIVE: K. 3.3, 2 K riders ordered but pt was not able to tolerate one will monitor K levels with a.m. labs Vital Signs Period Temp Pulse Resp BP Sys/Harper Pulse Ox Last 24 Hr 98 F-98.7 F 67-75 18-20 136-150/67-91 96-98 GENERAL: Awake, alert, and fully oriented, in no acute distress. HEAD: Normal with no signs of trauma. EYES: Pupils equal, round and reactive to light, extraocular movements intact, sclera anicteric, conjunctiva clear. No lid lag. EARS, NOSE, THROAT: Ears normal, nares patent, oropharynx clear without exudates. Moist mucous membranes. NECK: Normal range of motion, supple without lymphadenopathy, JVD, or masses. LUNGS: Breath sounds equal, clear to auscultation bilaterally. No wheezes HEART: Regular rate and rhythm ABDOMEN: +bowel sounds, epigastric "burning" sensation associated with nausea/ vomiting/dizziness and palpitations, +pain on light palpation of epigastric region MUSCULOSKELETAL: Normal range of motion at all joints. No bony deformities or tenderness. No CVA tenderness. UPPER EXTREMITIES: 2+ pulses, warm, well-perfused. No cyanosis. No clubbing. No peripheral edema. LOWER EXTREMITIES: 2+ pulses, warm, well-perfused. No calf tenderness. No peripheral edema. NEUROLOGICAL: Normal speech. steady gait PSYCHIATRIC: Cooperative. Good eye contact. Appropriate mood and affect. SKIN: Warm, dry, normal turgor, no rashes or lesions noted, normal capillary refill. Laboratory Results - last 24 hr 12/03/16 12/03/16 05:35 05:35 WBC 6.9 RBC 4.67 Hgb 13.6 Hct 40.3 MCV 86.2 MCHC 33.8 RDW 12.8 Plt Count 146 MPV 10.0 Neutrophils % 56.0 Lymphocytes % 27.1 Monocytes % 8.8 Eosinophils % 7.8 H Basophils % 0.3 Sodium 144 Potassium 3.3 L Chloride 107 Carbon Dioxide 27 Anion Gap 10 BUN 10 Creatinine 0.9 Creat Clearance w eGFR > 60 Random Glucose 92 Calcium 8.2 L Total Bilirubin 0.6 D AST 40 H ALT 55 Alkaline Phosphatase 77 Total Protein 6.0 L Albumin 3.0 L Active Medications Generic Name Dose Route Start Last Admin Trade Name Freq PRN Reason Stop Dose Admin Amitriptyline HCl 25 mg 12/01/16 22:00 12/02/16 21:58 Elavil - PO 25 mg HS JARROD Administration Apixaban 5 mg 12/01/16 22:00 12/03/16 09:10 Eliquis - PO 5 mg BID JARROD Administration Atorvastatin Calcium 40 mg 12/02/16 22:00 12/02/16 21:58 Lipitor - PO 40 mg HS JARROD Administration Dextrose/Sodium Chloride 1,000 mls @ 75 mls/hr 12/02/16 11:30 12/03/16 12:05 D5-Ns - IV 75 mls/hr ASDIR JARROD Administration Metoclopramide HCl 10 mg 12/02/16 11:30 12/03/16 15:05 Reglan Injection - IVPB 10 mg Q6H-IV JARROD Administration Nebivolol 10 mg 12/02/16 10:00 12/03/16 09:09 Bystolic - PO 10 mg DAILY JARROD Administration Ondansetron HCl 4 mg 12/01/16 18:00 12/03/16 17:31 Zofran Injection IVPUSH 4 mg Q6HPO JARROD Administration Pantoprazole Sodium 40 mg 12/03/16 10:00 12/03/16 09:12 Protonix 40mg Ivpb (Pre-Docked) IVPB 40 mg DAILY JARROD Administration Tamsulosin HCl 0.4 mg 12/02/16 08:30 12/03/16 09:10 Flomax - PO 0.4 mg DAILY@0830 JARROD Administration Valsartan 320 mg 12/02/16 10:00 12/03/16 09:09 Diovan - PO 320 mg DAILY JARROD Administration ASSESSMENT/PLAN: The patient is a 56-year-old man with a significant past medical history of hypertension, hypercholesterolemia, myocardial infarction status post cardiac catheterization x3, cardiomegaly and elevated enzymes. He presented to the ED for further evaluation of abdominal pain and epigastric burning pain that began on 11/30/16. He states that the epigastric pain is constant, radiates to his right hand, with moderate intensity. He reported that his pain is associated with nausea, lightheadedness, palpitations, and generalized body itching. He denies chest pain or shortness of breath. Imaging: Abdominal xray 12/02/2016 shows distended small bowel loops, possible SBO or partial small bowel obstruction Abdominal xray 12/03/2016 improvement in previous noted distended small bowel loops GI: Abdominal pain/Epigastric pain - resolving Assessment/Plan: Abdominal xray 12/03/2016 improvement in previous noted distended small bowel loops Reglan q6h scheduled, Protonix IV daily Tolerating clears GI consulted for possible SBO Repeat abdominal xray shows improvement Cardiology: Hypertension Assessment/Plan: Now on Diovan 320mg PO daily On Bystolic 10mg daily Monitor BP Cardiology following Rule out ACS/Palpitations Assessment/Plan: Denies chest pain, denies any further palpitations Troponins negative x 3 Cardiology following Paroxysmal atrial fibrillation Assessment/Plan: On Eliquis BID Diltiazem stopped as per whitesmith Hyperlipidemia Assessment/Plan: Lipid panel reviewed Lipitor dose increased : BPH - chronic Assessement/Plan: On Uroxatral 10mg daily Obstructive sleep apnea: Assessment/Plan: CPAP at night F.E.N. Fluids: d/c, tolerating diet Electrolytes: hypokalemia, 1 k rider administered Nutrition: clears Prophylaxis: GI: Protonix 40 mg DVT: On Eliquis Disposition: Requires inpatient hospitalization. Full Code.
[2016-12-03] MEDS: ATORVASTATIN CA 40 MG TABLET (FP) PO SCH (21:20)
[2016-12-03] MEDS: AMITRIPTYLINE HCL 25 MG TABLET (FP) PO SCH (21:20)
[2016-12-04] MEDS: ONDANSETRON 4 MG/2 ML VIAL IVPUSH SCH ×3 (01:50→11:26)
[2016-12-04] MEDS: METOCLOPRAMIDE HCL INJECTION 10 MG/2 ML VIAL IVPB SCH ×2 (03:32→09:15)
[2016-12-04 08:11] LABS: BASOPHIL 0.5 % (0-2.0); EOSINOPHIL 5.8 % (0-4.5); MCH 29.6 pg (25.7-33.7); MCHC 34.3 g/dl (32.0-35.9); MEAN CELL VOLUME 86.3 fl (80-96); MEAN PLT VOLUME 10.3 fl (7.5-11.1); NEUTROPHILS 60.5 % (42.8-82.8); PLATELET COUNT 152 K/MM3 (134-434); RDW 12.4 % (11.9-15.9); WHITE BLOOD COUNT 7.5 K/mm3 (4.0-10.0)
[2016-12-04 09:08] LABS: ALBUMIN 3.2 g/dl (3.4-5.0); ALK PHOS 82 U/L (45-117); ANION GAP 13 (8-16); BILIRUBIN,TOTAL 0.7 mg/dL (0.2-1.0); CALCIUM 8.3 mg/dL (8.5-10.1); CO2 27 mmol/L (21-32); COCKROFT - GAULT 115.79; CREATININE 0.8 mg/dL (0.7-1.3); GLUCOSE,RANDOM 84 mg/dL (74-106); SGOT/AST 42 U/L (15-37); SGPT/ALT 57 U/L (12-78); TOT PROT 6.3 g/dl (6.4-8.2)
[2016-12-04] MEDS: VALSARTAN 160 MG TABLET (UD) PO SCH (09:15)
[2016-12-04] MEDS: TAMSULOSIN HCL 0.4 MG CAP.ER.24H (FP) PO SCH (09:15)
[2016-12-04] MEDS: APIXABAN 5 MG TABLET PO SCH (09:16)
[2016-12-04] MEDS: PANTOPRAZOLE SODIUM 40 MG/100 ML PRE-DOCKED IVPB SCH (09:16)
[2016-12-04] MEDS: NEBIVOLOL 10 MG TABLET (FP) PO SCH (09:25)
[2016-12-04 09:46] VITALS: BP 160/88; PULSE 67; TEMP 98.8
--- NOTE | 2016-12-04 11:39 | PN ---
Progress Note (short form) - Note Progress Note: Chief Complaint: cp, palpitations History of Present Illness: CP/abdominal pain significantly improved. no sob, palpit, syncope Current Medications Amitriptyline HCl (Elavil -) 25 mg PO HS [facility] Last Admin: 12/03/16 21:20 Dose: 25 mg Apixaban (Eliquis -) 5 mg PO BID [facility] Last Admin: 12/04/16 09:16 Dose: 5 mg Atorvastatin Calcium (Lipitor -) 40 mg PO HS [facility] Last Admin: 12/03/16 21:20 Dose: 40 mg Metoclopramide HCl (Reglan Injection -) 10 mg IVPB Q6H-IV [facility] Last Admin: 12/04/16 09:15 Dose: 10 mg Nebivolol (Bystolic -) 10 mg PO DAILY [facility] Last Admin: 12/04/16 09:25 Dose: 10 mg Ondansetron HCl (Zofran Injection) 4 mg IVPUSH Q6HPO [facility] Last Admin: 12/04/16 11:26 Dose: 4 mg Pantoprazole Sodium (Protonix 40mg Ivpb (Pre-Docked)) 40 mg IVPB DAILY [facility] Last Admin: 12/04/16 09:16 Dose: 40 mg Tamsulosin HCl (Flomax -) 0.4 mg PO DAILY@0830 [facility] Last Admin: 12/04/16 09:15 Dose: 0.4 mg Valsartan (Diovan -) 320 mg PO DAILY [facility] Last Admin: 12/04/16 09:15 Dose: 320 mg Vital Signs - 24 hr 12/03/16 12/03/16 12/03/16 14:04 17:00 21:00 Temperature 98.1 F 98.5 F 97.7 F Pulse Rate 68 75 72 Respiratory 20 20 20 Rate Blood Pressure 145/85 146/91 152/86 O2 Sat by Pulse 96 Oximetry (%) 12/04/16 12/04/16 12/04/16 02:00 06:00 09:45 Temperature 98.5 F 98.4 F 98.8 F Pulse Rate 72 66 67 Respiratory 20 20 18 Rate Blood Pressure 159/88 140/78 160/88 O2 Sat by Pulse Oximetry (%) Intake & Output 12/02/16 12/03/16 12/04/16 12/05/16 07:59 07:59 07:59 07:59 Intake Total 50 1944 1959 Balance 50 1944 1959 Weight 173 lb Constitutional: Yes: Well Nourished, No Distress, Calm Cardiovascular: Yes: Regular Rate and Rhythm, S1, S2. No: Gallop, Murmur Respiratory: Yes: Regular, CTA Bilaterally. No: Accessory Muscle Use, Rales, Wheezes Extremities: No: Cold Edema: No Neurological: Yes: Alert, Oriented Psychiatric: No: Agitated Labs: CBC, BMP 12/04/16 06:00 12/04/16 06:00 Laboratory Tests 12/04/16 06:00 Total Bilirubin 0.7 AST 42 H ALT 57 Alkaline Phosphatase 82 Albumin 3.2 L tele: SR/SB occ PVCs, rare pac Assessment/Plan paroxysmal afib: -CHADS VASC 1, on eliquis -no documented AF in long time (despite ongoing frequent palpitation sx's -cont bystolic (loss of bp control in past with attempt to change to alternate b -tony) -tolerated stopping diltiazem here --> ? if it was worsening GERD sx's/abd pain by reducing GE sphincter tone? Had been added by Dr. Calles to try to help with palpitations which now do not seem to be correlated with sx's of palps. - lyte repletion prn. atyp CP syndrome/abd pain: -has had longstanding cp despite non-obstructive cors at cath -troponins neg here, no ecg changes -sx's non-anginal in description, not suspicious for vasospasm or microvasc endothelial dysfunction -erosive gastritis on EGD 2014, rx'd omeparazole 40 qd then but he's not been taking -? present sx's are GERD/PUD related -on PPI, plan per dr hodge -stopped CCB, as above HTN: -bp reasonably controlled here. Running slightly high on bystolic and valsartan (added here). Regimen can be further optimized as outpatient if plan is for d/ c. -stopped diltiazem as above MICHELLE: -s/p uvuloplasty, residual apnea persists after so on CPAP per ENT Stable for d/c from CV perspective. Will need to follow up with Dr. Calles as outpatient for possible further uptitration of anti-hypertensive regimen. Patient counseled to continue to check home blood pressures on discharge.
--- NOTE | 2016-12-04 11:52 | DS ---
Physical Exam: SUBJECTIVE: Patient seen and examined. He denies chest pain, denies shortness of breath. Denies abdominal pain or burning, tolerating full liquid diet Asking to go home, states he feels much improved. OBJECTIVE: Tolerating diet, no chest pain as per patient cleared by cardiology for d/c Vital Signs Period Temp Pulse Resp BP Sys/Harper Pulse Ox Last 24 Hr 97.7 F-98.8 F 66-75 18-20 140-160/78-91 96 PHYSICAL EXAM GENERAL: Awake, alert, and fully oriented, in no acute distress. HEAD: Normal with no signs of trauma. EYES: Pupils equal, round and reactive to light, extraocular movements intact, sclera anicteric, conjunctiva clear. No lid lag. EARS, NOSE, THROAT: Ears normal, nares patent, oropharynx clear without exudates. Moist mucous membranes. NECK: Normal range of motion, supple without lymphadenopathy, JVD, or masses. LUNGS: Breath sounds equal, clear to auscultation bilaterally. No wheezes HEART: Regular rate and rhythm ABDOMEN: +bowel sounds, no epigastric pain, no nausea/vomiting MUSCULOSKELETAL: Normal range of motion at all joints. No bony deformities or tenderness. No CVA tenderness. UPPER EXTREMITIES: 2+ pulses, warm, well-perfused. No cyanosis. No clubbing. No peripheral edema. LOWER EXTREMITIES: 2+ pulses, warm, well-perfused. No calf tenderness. No peripheral edema. NEUROLOGICAL: Normal speech. steady gait PSYCHIATRIC: Cooperative. Good eye contact. Appropriate mood and affect. SKIN: Warm, dry, normal turgor, no rashes or lesions noted, normal capillary refill. LABS Laboratory Results - last 24 hr 12/04/16 12/04/16 06:00 06:00 WBC 7.5 RBC 4.68 Hgb 13.8 Hct 40.3 MCV 86.3 MCHC 34.3 RDW 12.4 Plt Count 152 MPV 10.3 Neutrophils % 60.5 Lymphocytes % 23.7 Monocytes % 9.5 Eosinophils % 5.8 H Basophils % 0.5 Sodium 143 Potassium 3.5 Chloride 103 Carbon Dioxide 27 Anion Gap 13 BUN 11 Creatinine 0.8 Creat Clearance w eGFR > 60 Random Glucose 84 Calcium 8.3 L Total Bilirubin 0.7 AST 42 H ALT 57 Alkaline Phosphatase 82 Total Protein 6.3 L Albumin 3.2 L HOSPITAL COURSE: Date of Admission:12/01/16 Date of Discharge: 12/04/16 The patient is a 56-year-old man with a significant past medical history of hypertension, hypercholesterolemia, myocardial infarction status post cardiac catheterization x3, cardiomegaly and elevated enzymes. He presented to the ED for further evaluation of abdominal pain and epigastric burning pain that began on 11/30/16. He states that the epigastric pain is constant, radiates to his right hand, with moderate intensity. He reported that his pain is associated with nausea, lightheadedness, palpitations, and generalized body itching. He denies chest pain or shortness of breath. Imaging: Abdominal xray 12/02/2016 shows distended small bowel loops, possible SBO or partial small bowel obstruction Abdominal xray 12/03/2016 improvement in previous noted distended small bowel loops GI: Abdominal pain/Epigastric pain - resolved Assessment/Plan: Abdominal xray 12/03/2016 improvement in previous noted distended small bowel loops Tolerating diet, no nausea, no vomiting Repeat abdominal xray shows improvement Follow up with Dr. Krause as outpatient Cardiology: Hypertension - chronic Assessment/Plan: Now on Diovan 320mg PO daily On Bystolic 10mg daily, pt to monitor BP @ home and follow up with Dr. Calles Rule out ACS/Palpitations - ruled out/resolved Assessment/Plan: Denies chest pain, denies any further palpitations Troponins negative x 3, Cardiology as outpatient Paroxysmal atrial fibrillation Assessment/Plan: On Eliquis BID Hyperlipidemia - chronic Assessment/Plan: Lipid panel reviewed Lipitor dose increased : BPH - chronic Assessement/Plan: On Uroxatral 10mg daily Obstructive sleep apnea: Assessment/Plan: CPAP at night Disposition: Cleared by cardiology for d/c. GI follow up as an outpatient. Full Code. Minutes to complete discharge: 45 Discharge Summary Reason For Visit: EPIGASTRIC ABDOMINAL PAIN Current Active Problems Chest pain (Acute) Epigastric abdominal pain (Acute) Condition: Stable - Instructions Diet, Activity, Other Instructions: Please follow up with Dr. Calles for possible further uptitration of anti- hypertensive regimen. Please check your home blood pressure and keep a record. Please bring the record with you to Dr. Calles. Please see Dr. Krause if the abdominal pain returns or worsens. If pain becomes severe or if you experience chest pain, please return to the ER. New medications: Diovan 320mg daily Increase Lipitor to 40mg daily Protonix 40mg daily Continue the Eliquis twice per day as ordered Please STOP the diltiazem (home medication), the diovan 320mg is the new medication replacing the Diltiazem. Referrals: Edgar Bautista MD [Primary Care Provider] - Kirk Calles MD [Staff Physician] - Ge Krause MD [Staff Physician] - Disposition: HOME - Home Medications Comprehensive Discharge Medication List: Ambulatory Orders Apixaban [Eliquis] 5 mg PO BID 02/22/16 Atorvastatin Ca [Lipitor] 20 mg PO HS 02/22/16 Diltiazem HCl [Diltiazem 24Hr Cd] 180 mg PO DAILY 02/22/16 Nebivolol HCl [Bystolic] 10 mg PO DAILY 02/22/16 Alfuzosin HCl [Uroxatral] 10 mg PO DAILY 12/01/16 Amitriptyline HCl [Elavil -] 25 mg PO HS 12/01/16 This patient is new to me today: No Emergency Visit: Yes ED Registration Date: 12/01/16 Care time: The patient presented to the Emergency Department on the above date and was hospitalized for further evaluation of their emergent condition. Critical Care patient: No - Discharge Referral Referred to [facility] Med P.C.: No
[2016-12-04] MEDS ORDERED: POTASSIUM CHLORIDE TABS 20 MEQ TABLET.ER (FP) PO ONE (12:30)
== END 2016-12-04 02:15 | disposition home or self-care (01) | DRG 251 ==
LOC: JER 11:49 → JERBED 14:30 → J4W 17:01 → OBSVTOIN 18:01
PROVIDERS: ADMIT Internal Medicine; ATTEND Nurse Practitioner Family
DX: R10.13 Epigastric pain (principal); I10 Essential (primary) hypertension; E78.5 Hyperlipidemia, unspecified; N40.0 Benign prostatic hyperplasia without lower urinary tract symptoms; G47.33 Obstructive sleep apnea (adult) (pediatric); R07.89 Other chest pain; K21.9 Gastro-esophageal reflux disease without esophagitis; E87.6 Hypokalemia; I48.0 Paroxysmal atrial fibrillation
CPT/HCPCS: 36415; 71010-TC; 74000-TC; 80048; 80053; 80061; 81003; 81015; 82550; 82553; 83036; 83690; 83721; 83735; 84100; 84484; 85025; 85027; 87389; 93005; 93010; 94660; 99284-25; G0378

== ENCOUNTER 2017-02-13 05:53 | Emergency (ER) | payer OTHER ==
[2017-02-13 06:00] VITALS: BMI 30.1
--- NOTE | 2017-02-13 07:23 | PDOC ---
History of Present Illness - General Chief Complaint: Pain Stated Complaint: LEG PAIN Time Seen by Provider: 02/13/17 07:12 History Source: Patient Exam Limitations: No Limitations - History of Present Illness Initial Comments: 02/13/17 07:27 56y M hx of htn, cad (s/p 3 caths, +cardiomegaly, but no stents), HL, presents with complaint of feeling shaky, palpitations, generalized weakness, shortness of breath, since last night. pt states he felt ok last night, but does endorse a mild headache for the past week. pt denies any fever/chlils, cough, chest pain , abd pain, n/v, diaprhosis, dizziness, vision changes, focal numbness/tingling/ weakness, dysuria, melena, bpr. pt states his last drink was > 1 week ago PMD: Jh Past History - Past Medical History Allergies/Adverse Reactions: Allergies Allergy/AdvReac Type Severity Reaction Status Date / Time camphor [From Vicks Vaporub] Allergy Verified 02/13/17 06:18 eucalyptus Allergy Verified 02/13/17 06:18 [From Vicks Vaporub] eucalyptus oil Allergy Verified 02/13/17 06:18 [From Vicks Vaporub] menthol [From Vicks Vaporub] Allergy Verified 02/13/17 06:18 turpentine oil Allergy Verified 02/13/17 06:18 [From Vicks Vaporub] Home Medications: Ambulatory Orders Alfuzosin HCl [Uroxatral] 10 mg PO DAILY 12/01/16 Amitriptyline HCl [Elavil -] 25 mg PO HS 12/01/16 Apixaban [Eliquis -] 5 mg PO BID #60 tablet 12/04/16 Atorvastatin Ca [Lipitor] 40 mg PO HS #60 tablet 12/04/16 Pantoprazole Sodium [Protonix 40Mg Ivpb (Pre-Docked)] 40 mg PO DAILY #30 tab 04/14 Tamsulosin HCl [Flomax -] 0.4 mg PO DAILY@0830 #30 tab 12/04/16 Valsartan/Hydrochlorothiazide [Valsartan-Hctz 320-12.5 mg Tab] 1 each PO DAILY 02/13/17 Anemia: No Asthma: No Cancer: No Cardiac Disorders: Yes (1 RI, 3 CATHS, CARDIOMEGALY) CVA: No COPD: No CHF: No Dementia: No Diabetes: No GI Disorders: Yes (ABD. PAIN, GALLSTONES) Disorders: No HTN: Yes Hypercholesterolemia: Yes Liver Disease: Yes (ELEVATED ENZYMES, STILL DRINKS ETOH A FEW X PER WEEK) Suicide Attempt (Hx): No Seizures: No Thyroid Disease: No - Surgical History Abdominal Surgery: Yes (RIGHT INGUINAL HERNIA REPAIR) Appendectomy: No Cardiac Surgery: Yes (CARDIAC CATHETERIZATION) Cholecystectomy: No Lung Surgery: No Neurologic Surgery: No Orthopedic Surgery: No - Immunization History Immunization Up to Date: Yes - Psycho/Social/Smoking Cessation Hx Anxiety: No Suicidal Ideation: No Smoking Status: No Smoking History: Never smoked Have you smoked in the past 12 months: No Number of Cigarettes Smoked Daily: 0 Information on smoking cessation initiated: No Hx Alcohol Use: No Drug/Substance Use Hx: No Substance Use Type: None Hx Substance Use Treatment: No Review of Systems - Review of Systems Able to Perform ROS?: Yes Comments:: 02/13/17 07:29 Constitutional - +generalized weakness no reported Fever, Chills, HEENT: no reported vision changes, sore throat Respiratory: +sob, no reported cough, hemoptysis Cardiac: + palpitations, no reported chest pain, light headedness, leg swelling Abd/GI: no reported abd pain, nausea, vomiting, blood per rectum, melena, diarrhea : no reported dysuria, frequency, discharge Musculskelatal - no reported back pain, joint swelling skin - no reported bruising, erythema, rash neurological: +headache, no reported numbness, focal weakness, tingling, ataxia , hematologic: no reported anemia, easy bruising, easy bleeding *Physical Exam - Vital Signs Last Vital Signs Temp Pulse Resp BP Pulse Ox 98.2 F 90 18 180/100 97 02/13/17 05:56 02/13/17 05:56 02/13/17 05:56 02/13/17 05:56 02/13/17 05:56 - Physical Exam Comments: 02/13/17 07:30 GENERAL: The patient is awake, alert, and fully oriented, Nontoxic - in no acute distress. HEAD: Normocephalic, atraumatic. EYES: extraocular movements intact, sclera anicteric, conjunctiva clear. ENT: Normal voice, slightly dry mucous membranes. NECK: Normal range of motion, supple LUNGS: Breath sounds equal, clear to auscultation bilaterally. No wheezes, no rhonchi, no rales. HEART: Regular rate and rhythm, normal S1 and S2 without murmur, rub or gallop. ABDOMEN: Soft, nontender, normoactive bowel sounds. No guarding, no rebound. No CVA tenderness EXTREMITIES: Normal range of motion, no edema. No clubbing or cyanosis. No cords, erythema, or tenderness. NEUROLOGICAL: No facial assymetry, Normal speech, moving all 4 extremities spontaneously and symmetrically, normal gait PSYCH: Normal mood, normal affect. SKIN: Warm, Dry, normal turgor, Heart Score/ECG Review - ECG Impressions Comment:: 02/13/17 07:35 Twelve-lead EKG was performed and reviewed by me. There is normal sinus rhythm with a normal rate. rate of 85 The axis is normal. The intervals are normal. There is normal R wave progression There are no ST or T wave abnormalities. q wave in lead III ED Treatment Course - LABORATORY CBC & Chemistry Diagram: 02/13/17 07:34 02/13/17 07:34 Medical Decision Making - Medical Decision Making 02/13/17 07:32 56-year-old gentleman history of hypertension, CAD, hyperlipidemia, presents with general malaise, palpitations, feeling shaky since this morning also endorses a mild headache over the past week that is frontal without associated neurologic symptoms, vision changes. The patient's exam is unremarkable, vitals reveal htn differential for the pts symptoms is large consider possible anemia, metabolic dernamgent, thyroid disorder, tension headache 02/13/17 10:01 pt feeiling substantially improved pts lbas reviewed noted for mild elevation of LFTs, possibly due to ETOH will dc the pt with PMD fu return precautions were disucssed I discussed the physical exam findings, ancillary test results and final diagnoses with the patient. I answered all of the patient's questions. The patient was satisfied with the care received and felt comfortable with the discharge plan and treatment plan. The patient will call their primary care physician within 24 hours to arrange follow-up and will return to the Emergency Department with any new, persistent or worsening symptoms. *DC/Admit/Observation/Transfer Diagnosis at time of Disposition: Palpitations Headache Qualifiers: Headache type: tension-type Headache chronicity pattern: acute headache Intractability: not intractable Qualified Code(s): G44.209 - Tension-type headache, unspecified, not intractable - Discharge Dispostion Disposition: HOME Condition at time of disposition: Improved Admit: No - Referrals Referrals: Edgar Bautista MD [Primary Care Provider] - - Patient Instructions Printed Discharge Instructions: DI for Hormonal and Tension Headaches, DI for Palpitations Additional Instructions: Vuelva al departamento de urgencias inmediatamente con CUALQUIER nuevo, persistente o empeorando los sntomas incluyendo empeoramiento de dolor de corrine, cambios de visin, entumecimiento / hormigueo / debilidad, nuseas y v mitos persistentes o cualquier otra preocupacin. Asegrese de que est recibiendo adaqute sueo e hidratacin. Debe llamar y seguir con waddell mdico maana para imani evaluacin ms detallada de doris sntomas. Waddell visita al departamento de emergencias no est completa sin un seguimiento con waddell mdico para waddell reevaluacin. Los resultados fueron discutidos con usted. Por favor, asegrese de que waddell mdico revise los resultados de waddell evaluacin de emergencia. Si usted tuvo alguna radiografa abel waddell visita, fue ledo preliminarmente por m mismo, un radilogo lo revisar y si hay algn hallazgo adicional lo llamaremos. Return to the emergency department immediately with ANY new, persistent or worsening symptoms including worsening headache, vision changes, numbness/ tingling/weakness, persistent nausea and vomiting or any other concerns. Make sure you are getting adaqute sleep and hydration. You MUST call and follow up with your doctor tomorrow for further evaluation of your symptoms. Your emergency department visit is not complete without a followup with your doctor for reevaluation. Results were discussed with you. Please make sure your doctor reviews the results of your emergency evaluation. If you had any xrays during your visit, it was read preliminarily by myself, a Radiologist will review it and if there are any additional findings we will call you. Print Language: ROMANSH
[2017-02-13] MEDS ORDERED: SODIUM CHLORIDE 1,000 ML IV ONE (07:24)
[2017-02-13] MEDS ORDERED: METOCLOPRAMIDE HCL INJECTION 10 MG/2 ML VIAL IVPUSH ONE (07:24)
[2017-02-13] MEDS ORDERED: METOCLOPRAMIDE HCL INJECTION 10 MG/2 ML VIAL ONE (07:46)
[2017-02-13 08:02] LABS: BASOPHIL 0.5 % (0-2.0); EOSINOPHIL 7.8 % (0-4.5); MCH 28.7 pg (25.7-33.7); MCHC 33.4 g/dl (32.0-35.9); MEAN CELL VOLUME 85.9 fl (80-96); MEAN PLT VOLUME 9.6 fl (7.5-11.1); NEUTROPHILS 47.9 % (42.8-82.8); PLATELET COUNT 197 K/MM3 (134-434); RDW 12.6 % (11.9-15.9); WHITE BLOOD COUNT 6.6 K/mm3 (4.0-10.0)
[2017-02-13 08:03] LABS: URINE APPEARANCE CLEAR; URINE BILIRUBIN NEGATIVE (NEGATIVE); URINE BLOOD NEGATIVE (NEGATIVE); URINE COLOR STRAW; URINE GLUCOSE (UA) NEGATIVE (NEGATIVE); URINE KETONE NEGATIVE (NEGATIVE); URINE LEUK ESTERASE NEGATIVE (NEGATIVE); URINE NITRITE NEGATIVE (NEGATIVE); URINE UROBILINOGEN NEGATIVE mg/dL (0.2-1.0)
[2017-02-13 08:28] LABS: URINE PROTEIN 1+ (NEGATIVE)
[2017-02-13 08:51] LABS: URINE MUCUS RARE; URINE RBC <1 /hpf (0-3); URINE WBC <1 /hpf (3-5)
[2017-02-13 08:52] LABS: INR 1.15 (0.82-1.09); PROTHROMBIN TIME (PATIENT) 12.7 SEC (9.98-11.88)
[2017-02-13 09:48] LABS: ALBUMIN 3.5 g/dl (3.4-5.0); ANION GAP 10 (8-16); BILIRUBIN,TOTAL 0.3 mg/dL (0.2-1.0); CALCIUM 8.5 mg/dL (8.5-10.1); CO2 26 mmol/L (21-32); CREATININE 1.1 mg/dL (0.7-1.3); GLUCOSE,RANDOM 93 mg/dL (74-106); SGOT/AST 75 U/L (15-37); SGPT/ALT 82 U/L (12-78); TOT PROT 6.8 g/dl (6.4-8.2)
[2017-02-13 09:50] LABS: ALK PHOS 106 U/L (45-117); TROPONIN I < 0.02 ng/ml (0.00-0.05)
[2017-02-13 09:55] LABS: MAGNESIUM 2.1 mg/dL (1.8-2.4)
[2017-02-13 10:44] VITALS: BP 160/99; PULSE 85; TEMP 97.5
--- NOTE | 2017-02-13 13:21 | EKG ---
Test Reason : Blood Pressure : / mmHG Vent. Rate : 085 BPM Atrial Rate : 085 BPM P-R Int : 160 ms QRS Dur : 090 ms QT Int : 378 ms P-R-T Axes : 049 022 044 degrees QTc Int : 449 ms NORMAL SINUS RHYTHM NORMAL ECG WHEN COMPARED WITH ECG OF 01-DEC-2016 21:12, NO SIGNIFICANT CHANGE WAS FOUND Confirmed by NESSA BISHOP MD ([id number]) on 02/13/2017 1:21:28 PM Referred By: Confirmed By:NESSA BISHOP MD
== END 2017-02-13 10:44 | disposition home or self-care (01) ==
LOC: JER 05:53
PROC: 3E033GC Introduction of Other Therapeutic Substance into Peripheral Vein, Percutaneous Approach (ICD-10-PCS; principal; 2017-02-13)
DX: G44.209 Tension-type headache, unspecified, not intractable (principal); R00.2 Palpitations; I25.10 Atherosclerotic heart disease of native coronary artery without angina pectoris; Z98.61 Coronary angioplasty status; I10 Essential (primary) hypertension; E78.00 Pure hypercholesterolemia, unspecified
CPT/HCPCS: 36415; 80053; 81003; 81015; 82550; 82553; 83735; 84443; 84484; 85025; 85610; 93005; 93010; 96374; 99283-25

== ENCOUNTER 2017-12-13 14:47 | Observation (INO) | payer OTHER ==
--- NOTE | 2017-12-13 14:52 | PDOC ---
Rapid Medical Evaluation Time Seen by Provider: 12/13/17 14:50 Medical Evaluation: Allergies Allergy/AdvReac Type Severity Reaction Status Date / Time camphor [From Vicks Vaporub] Allergy Verified 12/13/17 14:49 eucalyptus Allergy Verified 12/13/17 14:49 [From Vicks Vaporub] eucalyptus oil Allergy Verified 12/13/17 14:49 [From Vicks Vaporub] menthol [From Vicks Vaporub] Allergy Verified 12/13/17 14:49 turpentine oil Allergy Verified 12/13/17 14:49 [From Vicks Vaporub] I have performed a brief in-person evaluation of this patient. The patient presents with a chief complaint of: numbness in left hand x 3 days. pain in left arm Pertinent physical exam findings: none I have ordered the following: nothing The patient will proceed to the ED for further evaluation. Discharge Disposition - Diagnosis Numbness of left hand - Referrals - Patient Instructions - Post Discharge Activity
--- NOTE | 2017-12-13 16:47 | PDOC ---
History of Present Illness - General Chief Complaint: CVA/TIA Stated Complaint: ARM/LEG NUMBNESS Time Seen by Provider: 12/13/17 14:50 - History of Present Illness Initial Comments: 56 yo man with a significant pmh of hypertension, HLD, MD (Cardiac cath x3), paroxysmal afib (eliquis) who presents with 3 days of L arm and leg tingling, weakness. Pt with prior suspected CVA multiple years ago, no residual deficits. States numbness/tingling in L arm and leg began 3 days ago. 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 Currently on Eliquis for paroxysmal afib, compliant with meds. Pt does not follow with neurologist. No other symptoms endorsed. Patient denies chest pain, shortness of breath, headache or dizziness. Denies fever, chills, nausea, vomiting, diarrhea and constipation. Denies dysuria, frequency, urgency and hematuria. Allergies: NKDA Past surgical history: unknown Social History: Denies toxic habits PMD: Dr. Abbasi 12/13/17 16:37 12/13/17 18:32 Past History - Past Medical History Allergies/Adverse Reactions: Allergies Allergy/AdvReac Type Severity Reaction Status Date / Time camphor [From Vicks Vaporub] Allergy Verified 12/13/17 14:49 eucalyptus Allergy Verified 12/13/17 14:49 [From Vicks Vaporub] eucalyptus oil Allergy Verified 12/13/17 14:49 [From Vicks Vaporub] menthol [From Vicks Vaporub] Allergy Verified 12/13/17 14:49 turpentine oil Allergy Verified 12/13/17 14:49 [From Vicks Vaporub] Home Medications: Ambulatory Orders Alfuzosin HCl [Uroxatral] 10 mg PO DAILY 12/01/16 Amitriptyline HCl [Elavil -] 25 mg PO HS 12/01/16 Apixaban [Eliquis -] 5 mg PO BID #60 tablet 12/04/16 Atorvastatin Ca [Lipitor] 40 mg PO HS #60 tablet 12/04/16 Pantoprazole Sodium [Protonix 40Mg Ivpb (Pre-Docked)] 40 mg PO DAILY #30 tab 04/14 Tamsulosin HCl [Flomax -] 0.4 mg PO DAILY@0830 #30 tab 12/04/16 Valsartan/Hydrochlorothiazide [Valsartan-Hctz 320-12.5 mg Tab] 1 each PO DAILY 02/13/17 Anemia: No Asthma: No Cancer: No Cardiac Disorders: Yes (1 MD, 3 CATHS, CARDIOMEGALY) CVA: No COPD: No CHF: No Dementia: No Diabetes: No GI Disorders: Yes (ABD. PAIN, GALLSTONES) Disorders: No HTN: Yes Hypercholesterolemia: Yes Liver Disease: Yes (ELEVATED ENZYMES, STILL DRINKS ETOH A FEW X PER WEEK) Seizures: No Thyroid Disease: No - Surgical History Abdominal Surgery: Yes (RIGHT INGUINAL HERNIA REPAIR) Appendectomy: No Cardiac Surgery: Yes (CARDIAC CATHETERIZATION) Cholecystectomy: No Lung Surgery: No Neurologic Surgery: No Orthopedic Surgery: No - Immunization History Immunization Up to Date: Yes - Suicide/Smoking/Psychosocial Hx Smoking Status: No Smoking History: Never smoked Have you smoked in the past 12 months: No Number of Cigarettes Smoked Daily: 0 Hx Alcohol Use: Yes Drug/Substance Use Hx: No Substance Use Type: None Hx Substance Use Treatment: No Review of Systems - Review of Systems Comments:: GENERAL/CONSTITUTIONAL: No fever or chills. HEAD, EYES, EARS, NOSE AND THROAT: No change in vision. No ear pain or discharge. No sore throat. CARDIOVASCULAR: No chest pain or shortness of breath RESPIRATORY: No cough, wheezing, or hemoptysis. GASTROINTESTINAL: No nausea, vomiting, diarrhea or constipation. GENITOURINARY: No dysuria, frequency, or change in urination. MUSCULOSKELETAL: No joint or muscle swelling or pain. No neck or back pain. SKIN: No rash NEUROLOGIC: +paresthesias in L arm and leg. 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 Subjective weakness in L arm/leg. Occasional dizziness noted. No headache, vertigo, loss of consciousness ENDOCRINE: No increased thirst. No abnormal weight change HEMATOLOGIC/LYMPHATIC: No anemia, easy bleeding, or history of blood clots. ALLERGIC/IMMUNOLOGIC: No hives or skin allergy. 12/13/17 19:11 *Physical Exam - Vital Signs Last Vital Signs Temp Pulse Resp BP Pulse Ox 98.0 F 97 H 18 122/77 98 12/13/17 14:49 12/13/17 14:49 12/13/17 14:49 12/13/17 14:49 12/13/17 14:49 - Physical Exam Comments: GENERAL: Middle age man, Awake, alert, and fully oriented, in no acute distress HEAD: No signs of trauma, normocephalic, atraumatic EYES: PERRLA, EOMI, sclera anicteric, conjunctiva clear ENT: Auricles normal inspection, hearing grossly normal, nares patent, oropharynx clear withoutexudates. Moist mucosa NECK: Normal ROM, supple, no lymphadenopathy, JVD, or masses LUNGS: No distress, speaks full sentences, clear to auscultation bilaterally HEART: Regular rate and rhythm, normal S1 and S2, no murmurs, rubs or gallops, peripheral pulses normal and equal bilaterally. ABDOMEN: Soft, nontender, normoactive bowel sounds. No guarding, no rebound. No masses EXTREMITIES : Normal inspection, Normal range of motion, no edema. No clubbing or cyanosis. NEUROLOGICAL: L 5th digit weakness, decreased sensation in L forearm flexor/ extensor surface. 4/5 strength in L foot dorsiflexion. +babinski on L. No gait abnormalities. No pronator drift. Motor strength preserved in all other muscle groups. Sensation preserved in all other dermatomes. Cranial nerves II through XII grossly intact. Normal speech, normal gait SKIN: Warm, Dry, normal turgor, no rashes or lesions noted 12/13/17 20:56 ED Treatment Course - LABORATORY CBC & Chemistry Diagram: 12/13/17 18:05 12/13/17 18:05 - RADIOLOGY Radiology Studies Ordered: Category Date Time Status HEAD CT WITHOUT CONTRAST [CT] Stat CT Scan 12/13/17 16:09 Ordered Medical Decision Making - Medical Decision Making 56 yo man with a significant pmh of hypertension, HLD, MD (Cardiac cath x3), paroxysmal afib (eliquis) who presents with 3 days of L arm and leg tingling, weakness. CT negative. CMP pending due to lab delay. Polyradiculopathy of unknown origin. PLAN: - CMP, CBC, lipid profile, trops - MRI of spine - Neurology consulted; discussed case with Dr. Becker; will see pt tomorrow - Cardiac monitoring - c/w eliquis for AC - received one dose of ASA in ED; give lipitor 40mg Discussed case with resident on-call; will admit to Tele obs and Dr. Becker to see in AM 12/13/17 19:07 *DC/Admit/Observation/Transfer Diagnosis at time of Disposition: Numbness of left hand, Polyradiculopathy - Discharge Dispostion Condition at time of disposition: Fair Decision to Admit order: Yes Decision to Admit order Date/Time: Spoke with on-call resident for symphony. Will admit to hospitalist group, tele obs. 12/13/17 19:04 - Referrals - Patient Instructions - Post Discharge Activity
--- NOTE | 2017-12-13 17:19 | PDOC ---
Attending Attestation - Resident Resident Name: Christiano Sanchez - ED Attending Attestation I have performed the following: I have examined & evaluated the patient, The case was reviewed & discussed with the resident, I agree w/resident's findings & plan, Exceptions are as noted - Physicial Exam PE: 12/13/17 19:49 Patient is awake and alert, well-appearing, afebrile, hemodynamically stable; Normocephalic, atraumatic PERRLA, EOMI Neck is supple, no JVD, no carotid bruits CTA RRR Cranial nerves II through XII are grossly intact; Motor is 5 of 54; + there is weakness on abduction of the pinky of the left hand; no pronation drift; Babinski is positive on the left; patient has decreased fine touch to the ER for aspect of the left forearm; DTRs are +2 bilaterally to upper and lower extremities - Medical Decision Making 12/13/17 19:56 Patient is a 57-year-old male with history of paroxysmal atrial for relation on eliquis, hypertension, hyperlipidemia who presents with nonspecific left upper and lower extremity paresthesias, nonspecific weakness of the left hand and a positive Babinski without facial involvement or speech impediment. CVA is highly unlikely. CT of head shows no evidence of acute cranial pathology. Demyelinating disease and the polyneuropathy is on differential. Case discussed with neurology. Will admit further evaluation and treatment. <Tucker De Jesus - Last Filed: 12/13/17 19:49> - HPI HPI: 12/13/17 20:03 The patient is a 57 year old male with a significant past medical history of hyperlipidemia, hypertension, SC (cardiac catheter x3), paroxysmal afib on eliquis, who presents to the emergency department for evaluation of a 3 day history of left arm and left leg weakness with tingling. 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 No other symptoms reported. Of note, patient does not follow with neurologist. The patient denies chest pain, shortness of breath, headache or dizziness. Denies fever, chills, nausea, vomiting, diarrhea and constipation. Denies any urinary problems. Allergies: camphor, eucalyptus, eucalyptus oil, menthol, turpentine oil PCP: Dr. Bautista <Zeyad Ramirez - Last Filed: 12/13/17 20:03> Attestations - Attestations Documentation prepared by Zeyad Ramirez, acting as certified medical coder for Tucker De Jesus MD. <Zeyad Ramirez - Last Filed: 12/13/17 20:03>
[2017-12-13] MEDS ORDERED: ASPIRIN 81 MG CHEWABLE TABLETS PO ONE (17:44)
[2017-12-13] MEDS ORDERED: ASPIRIN 81 MG CHEWABLE TABLETS ONE (18:10)
[2017-12-13 18:15] LABS: BASO % 0.8 % (0-2.0); EOS % 8.3 % (0-4.5); HEMATOCRIT 39.3 % (35.4-49); HEMOGLOBIN 13.4 GM/dL (11.7-16.9); LYMPH % 24.5 % (8-40); MCH 29.6 pg (25.7-33.7); MEAN CELL VOLUME 87.1 fl (80-96); MEAN PLT VOLUME 9.6 fl (7.5-11.1); MONO % 7.8 % (3.8-10.2); NEUT % 58.6 % (42.8-82.8); PLATELET COUNT 194 K/MM3 (134-434); RBC 4.51 M/mm3 (4.00-5.60); RDW 12.3 % (11.9-15.9); WHITE BLOOD COUNT 8.4 K/mm3 (4.0-10.0)
[2017-12-13] MEDS: SODIUM CHLORIDE 1,000 ML IV SCH (18:15)
[2017-12-13 18:19] LABS: URINE APPEARANCE CLEAR; URINE BILIRUBIN NEGATIVE (<2.0 mg/dL); URINE COLOR STRAW; URINE GLUCOSE (UA) NEGATIVE (NEGATIVE); URINE KETONE NEGATIVE (NEGATIVE); URINE LEUK ESTERASE NEGATIVE (NEGATIVE); URINE NITRITE NEGATIVE (NEGATIVE); URINE PROTEIN NEGATIVE (NEGATIVE); URINE UROBILINOGEN NEGATIVE mg/dL (0.2-1.0)
[2017-12-13 18:43] LABS: INR 1.42 (0.82-1.09)
[2017-12-13 19:13] LABS: ALBUMIN 3.8 g/dl (3.4-5.0); ANION GAP 8 (8-16); BLOOD UREA NITROGEN 26 mg/dL (7-18); CALCIUM 8.6 mg/dL (8.5-10.1); CHLORIDE 103 mmol/L (98-107); CO2 28 mmol/L (21-32); GLUCOSE,RANDOM 93 mg/dL (74-106); POTASSIUM 3.3 mmol/L (3.5-5.1); SODIUM 139 mmol/L (136-145)
[2017-12-13 19:18] LABS: ALK PHOS 76 U/L (45-117); BILIRUBIN,TOTAL 0.5 mg/dL (0.2-1.0); CHOLESTEROL 105 mg/dL (50-200); CREATININE 1.6 mg/dL (0.7-1.3); HDL CHOLESTEROL 66 mg/dL (40-60); SGOT/AST 45 U/L (15-37); SGPT/ALT 65 U/L (12-78); TOT PROT 7.2 g/dl (6.4-8.2); TRIGLYCERIDES 175 mg/dL (35-160)
[2017-12-13] MEDS ORDERED: POTASSIUM CHLORIDE TABS 20 MEQ TABLET.ER (FP) PO ONE (20:15)
--- NOTE | 2017-12-13 20:42 | HP ---
CHIEF COMPLAINT: numbness and cramping PCP: Lily HISTORY OF PRESENT ILLNESS: The patient is a 57 year old Mohawk speaking male with a PMH of HTN, Hyperlipidemia, CAD, s/p 3 stents, CVA (94' without deficits), A.Fib, on Eliquis , MICHELLE on CPAP, cardiomegaly, that presented to the hospital complaining of numbness and cramping in left upper and left lower extremity x 3 days and weakness in left hand. He states that it progressively got worse. He also endorses balance problem that is present for long time. The patient denies trauma, vision problems, headache, LOC, urinary/bowel incontinence, confusion, memory problems. He denies palpitations, chest pain, dizziness. He denies N/V, diarrhea, constipation. He denies dysuria, fever, chills. He is compliant with his home medications and f/u with Dr Calles. I used [email or web address] [id number]. ER course was notable for: (1)CT head (2)CBC nl, CMP K 3.3, Cr 1.6 PAST MEDICAL HISTORY: as above and nephrolithiasis, GERD, BPH, depression, vertigo PAST SURGICAL HISTORY: right hiatal hernia, 3 caths, lithotripsy Social History: Smoking:denies Alcohol:denies Drugs: denies Family History: Parents: alive and healthy, siblings and 5 children healthy. He works in [employer] and lives with family. Allergies camphor [From [employer]aporub] Allergy (Verified 12/13/17 14:49) eucalyptus [From [employer]] Allergy (Verified 12/13/17 14:49) eucalyptus oil [From [employer]] Allergy (Verified 12/13/17 14:49) menthol [From [employer]apor[employer]] Allergy (Verified 12/13/17 14:49) turpentine oil [From [employer]] Allergy (Verified 12/13/17 14:49) HOME MEDICATIONS: Home Medications Medication Instructions Recorded Alfuzosin HCl [Uroxatral] 10 mg PO DAILY 12/01/16 Amitriptyline HCl [Elavil -] 25 mg PO HS 12/01/16 Apixaban [Eliquis -] 5 mg PO BID #60 tablet 12/04/16 Atorvastatin Ca [Lipitor] 40 mg PO HS #60 tablet 12/04/16 Pantoprazole Sodium [Protonix 40Mg 40 mg PO DAILY #30 tab 12/04/16 Ivpb (Pre-Docked)] Tamsulosin HCl [Flomax -] 0.4 mg PO DAILY@0830 #30 tab 12/04/16 Valsartan/Hydrochlorothiazide 1 each PO DAILY 02/13/17 [Valsartan-Hctz 320-12.5 mg Tab] REVIEW OF SYSTEMS CONSTITUTIONAL: Absent: fever, chills, diaphoresis, generalized weakness, malaise, loss of appetite, weight change HEENT: Absent: rhinorrhea, nasal congestion, throat pain, throat swelling, difficulty swallowing, mouth swelling, ear pain, eye pain, visual changes CARDIOVASCULAR: Absent: chest pain, syncope, palpitations, irregular heart rate, lightheadedness , peripheral edema RESPIRATORY: Absent: cough, shortness of breath, dyspnea with exertion, orthopnea, wheezing, stridor, hemoptysis GASTROINTESTINAL: Absent: abdominal pain, abdominal distension, nausea, vomiting, diarrhea, constipation, melena, hematochezia GENITOURINARY: Absent: dysuria, frequency, urgency, hesitancy, hematuria, flank pain, genital pain MUSCULOSKELETAL: Absent: myalgia, arthralgia, joint swelling, back pain, neck pain SKIN: Absent: rash, itching, pallor HEMATOLOGIC/IMMUNOLOGIC: Absent: easy bleeding, easy bruising, ENDOCRINE: Absent: unexplained weight gain, unexplained weight loss, NEUROLOGIC: Absent: headache, focal weakness or paresthesias, dizziness, unsteady gait, seizure, mental status changes, bladder or bowel incontinence PSYCHIATRIC: Absent: anxiety, depression PHYSICAL EXAMINATION Vital Signs - 24 hr 12/13/17 12/13/17 12/13/17 14:49 18:00 19:47 Temperature 98.0 F 98.4 F Pulse Rate 97 H 80 Pulse Rate [ 86 Apical] Respiratory 18 20 Rate Blood Pressure 122/77 Blood Pressure 125/80 [Right Arm] O2 Sat by Pulse 98 98 98 Oximetry (%) GENERAL: Awake, alert, and fully oriented, in no acute distress. HEAD: Normal with no signs of trauma. EYES: Pupils equal, round and reactive to light, extraocular movements intact, sclera anicteric, conjunctiva clear. No lid lag. EARS, NOSE, THROAT: oropharynx clear without exudates. Moist mucous membranes. NECK: Normal range of motion, supple without lymphadenopathy, JVD, or masses. LUNGS: Breath sounds equal, clear to auscultation bilaterally. No wheezes, and no crackles. No accessory muscle use. HEART: Regular rate and rhythm, normal S1 and S2 without murmur, rub or gallop. ABDOMEN: Soft, nontender, not distended, normoactive bowel sounds, no guarding, no rebound, no masses. No hepatomegaly or splenomegaly. MUSCULOSKELETAL: Normal range of motion at all joints. Mild tenderness over sacral and thoracic spine, no point tenderness. No CVA tenderness. UPPER EXTREMITIES: 2+ pulses, no peripheral edema. LOWER EXTREMITIES: 2+ pulses, no peripheral edema. NEUROLOGICAL: Normal speech, no facial asymmetry, motor 5/5, sensation decreased in LUE, LLE and left side of his face, DTRs in knee and brachioradialis nl, Gait not observed. PSYCHIATRIC: Cooperative. Good eye contact. Appropriate mood and affect. SKIN: Warm, dry, normal turgor, no rashes, scar on left side of his forehead, healed. Laboratory Results - last 24 hr 12/13/17 12/13/17 12/13/17 18:05 18:05 18:05 WBC 8.4 RBC 4.51 Hgb 13.4 Hct 39.3 MCV 87.1 MCH 29.6 MCHC 34.0 RDW 12.3 Plt Count 194 MPV 9.6 Neutrophils % 58.6 D Lymphocytes % 24.5 D Monocytes % 7.8 Eosinophils % 8.3 H Basophils % 0.8 PT with INR 16.00 H INR 1.42 H Sodium 139 Potassium 3.3 L Chloride 103 Carbon Dioxide 28 Anion Gap 8 BUN 26 H D Creatinine 1.6 H D Creat Clearance w eGFR 44.94 Random Glucose 93 Calcium 8.6 Total Bilirubin 0.5 D AST 45 H D ALT 65 D Alkaline Phosphatase 76 D Creatine Kinase 317 H Troponin I < 0.02 Total Protein 7.2 Albumin 3.8 Triglycerides 175 H Cholesterol 105 Total LDL Cholesterol 32 D HDL Cholesterol 66 H Urine Color Urine Appearance Urine pH Ur Specific [place] Urine Protein Urine Glucose (UA) Urine Ketones Urine Blood Urine Nitrite Urine Bilirubin Urine Urobilinogen Ur Leukocyte Esterase Blood Type Antibody Screen 12/13/17 12/13/17 18:05 18:12 WBC RBC Hgb Hct MCV MCH MCHC RDW Plt Count MPV Neutrophils % Lymphocytes % Monocytes % Eosinophils % Basophils % PT with INR INR Sodium Potassium Chloride Carbon Dioxide Anion Gap BUN Creatinine Creat Clearance w eGFR Random Glucose Calcium Total Bilirubin AST ALT Alkaline Phosphatase Creatine Kinase Troponin I Total Protein Albumin Triglycerides Cholesterol Total LDL Cholesterol HDL Cholesterol Urine Color Straw Urine Appearance Clear Urine pH 6.0 Ur Specific [place] 1.011 Urine Protein Negative Urine Glucose (UA) Negative Urine Ketones Negative Urine Blood Negative Urine Nitrite Negative Urine Bilirubin Negative Urine Urobilinogen Negative Ur Leukocyte Esterase Negative Blood Type A POSITIVE Antibody Screen Negative ASSESSMENT/PLAN: The patient is a 57 year old Mohawk speaking male with a PMH of HTN, Hyperlipidemia, CAD, s/p 3 stents, CVA without deficits, A.Fib, on Eliquis, MICHELLE on CPAP, cardiomegaly, that presented to the hospital complaining of numbness and cramping in left upper and left lower extremity x 3 days and weakness in LUE (hand). He is admitted to r/o stroke. R/O stroke: -the patient is complaining of numbness and cramping in LUE, LLE, left side of his face. Differential diagnosis include ischemic stroke as well as radiculopathy. -We obtained CT head that was negative for acute events -Dr Becker was consulted, MRI was recommended. We will obtain MRI without contrast of his brain and c spine -ECHO and carotid doppler ordered -no swallowing problems, speech and swallow eval not ordered -will resume his AC: Eliquis 5 mg BID, renally dosed tonight at 2.5 mg and then cont 5 mg BID, please conform with pharmacy -cardiac monitoring on telemetry -neuro checks ordered Hypokalemia: -3.3, will KCL 40 PO now and in AM -f/u CMP in AM RHIANNA: -possibly related to prerenal/cardiomyopathy/HCTZ -Cr 1.6 with baseline 1.0-1.1 -will continue oral hydration and f/u labs in AM -avoid nephrotoxic substances -will hold HCTZ HTN: -will start Norvasc 5 mg in AM instead of Valsartan/HCTZ Hyperlipidemia: -continue Lipitor 40 mg A.Fib: -continue Eliquis 5 mg daily -EKG NSR, no beth/std H/o Cardiomegaly: -will f/u ECHO and Dr Calles recommendations History of depression: -cont Amitryptiline BPH: -cont Flomax and Unoxatral MICHELLE: -will continue CPAP at night DVT PPX: -Eliquis 5 BID F/E/N: no/K 3.3/Low Na Dispo: tele obs Please confirm his medications with pharmacy as it was closed when I called. He briefly confirmed his meds with me but stated that he takes 9 everyday and we have only 7 in system. Problem List - Problem (1) Numbness of left hand Code(s): R20.0 - ANESTHESIA OF SKIN (2) Polyradiculopathy Code(s): M54.10 - RADICULOPATHY, SITE UNSPECIFIED (3) Hypertension Code(s): I10 - ESSENTIAL (PRIMARY) HYPERTENSION (4) Nephrolithiasis Code(s): N20.0 - CALCULUS OF KIDNEY (5) Palpitations Code(s): R00.2 - PALPITATIONS Visit type - Emergency Visit Emergency Visit: Yes ED Registration Date: 12/13/17 Care time: The patient presented to the Emergency Department on the above date and was hospitalized for further evaluation of their emergent condition. - New Patient This patient is new to me today: Yes Date on this admission: 12/13/17 - Critical Care Critical Care patient: No Hospitalist Screening - Colonoscopy Questionnaire Colonoscopy Questionnaire: Colonoscopy Questionnaire - Patient: 50 - 75 years old and never had a screening colonoscopy: Unknown History of colon or rectal polyps, or CA: Unknown History of IBD, Crohn's disease or UC: Unknown History of abdominal radiation therapy as a child: Unknown - Relative: 1 with colon or rectal CA, or polyps at age 60 or younger: Unknown Colon or rectal CA diagnosed at age 45 or younger: Unknown Multiple relatives with colon or rectal CA: Unknown - Outcome: Screening Result: Negative Screen
--- NOTE | 2017-12-13 21:15 | PDOC ---
NIH Stroke Scale - Last Known Well Date/Time & Onset Date Last Known Well: 12/10/17 - Initial Evaluation Level of consciousness: Alert Ask patient the month and their age: Answers both correctly Ask patient to open & close eyes; make fist and let go: Obeys both correctly Best gaze (horizontal eye movement): Normal Visual field testing: No visual field loss Facial paresis (Show teeth/raise eyebrows/close eyes tight): Normal symmetrical movement Motor Function: Left Arm: Normal Motor Function: Right Arm: Normal (extends arm 90 (or 45) degrees for 10 seconds without drift Motor Function: Left Leg: Normal (extends leg 30 degrees for 5 seconds without drift) Motor Function: Right Leg: Normal (extends leg 30 degrees for 5 seconds without drift) Limb Ataxia: No ataxia Sensory(Use pinprick test arms,legs,trunk,face/side to side): Mild to moderate decrease in sensation (L forearm flex/ex surface, L face) Best language (Describe picture, name items, read sentences): No Aphasia Dysarthria (read several words): Normal articulation Extinction and Inattention: No abnormality - Total Score NIH Stroke Scale Score: 1
--- NOTE | 2017-12-13 21:56 | PN ---
Teaching Attending Note Name of Resident: Carol Mcgrath ATTENDING PHYSICIAN STATEMENT I saw and evaluated the patient. I reviewed the resident's note and discussed the case with the resident. I agree with the resident's findings and plan as documented. SUBJECTIVE: Patient is a 57 year old Arabic speaking man with a PMH of Hypertnsion, Hyperlipidemia, CAD, s/p 3 stents, CVA (94' without residual deficits), A.Fib, on Eliquis, MICHELLE on CPAP, cardiomegaly, that presented to the hospital complaining of numbness and cramping in left upper and left lower extremity x 3 days and weakness in left hand. He states that he had a stressful event 3 days ago - that the Police raided his "[employer]eli". While in the ER he has not had any change in the intensity of his symptoms and head CT scan was negative. OBJECTIVE: Vital Signs Period Temp Pulse Resp BP Sys/Harper Pulse Ox Last 24 Hr 98.0 F-98.4 F 80-97 18-20 122-125/77-80 98-98 He is alert and in no acute distress HEENT: No Jaundice or redness, PERRLA, EOMI Neck: Supple, nontender. No palpable adenopathy or thyromegaly. No JVD Chest: Good effort. Clear to auscultation and percussion. Heart: Regular. No S3, rub or murmur Abdomen: Not distended, soft, nontender and no HSM Ext: Peripheral pulses intact. No leg edema Neuro: Alert. Oriented x3. CN 2-12 grossly intact. 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 Current Medications Generic Name Dose Route Start Last Admin Trade Name Laureano PRN Reason Stop Dose Admin Amitriptyline HCl 25 mg 12/13/17 22:00 Elavil - PO HS JARROD Amlodipine Besylate 5 mg 12/14/17 10:00 Norvasc - PO DAILY JARROD Apixaban 5 mg 12/13/17 22:00 Eliquis - PO BID JARROD Atorvastatin Calcium 40 mg 12/13/17 22:00 Lipitor - PO HS JARROD Sodium Chloride 1,000 mls @ 42 mls/hr 12/13/17 17:45 12/13/17 18:15 Normal Saline - IV 42 mls/hr ASDIR JARROD Administration Pantoprazole Sodium 40 mg 12/14/17 10:00 Protonix - PO DAILY [facility] Potassium Chloride 40 meq 12/14/17 06:00 K-Dur - PO 12/14/17 06:01 ONCE ONE Tamsulosin HCl 0.4 mg 12/14/17 08:30 Flomax - PO DAILY@0830 [facility] Home Medications Medication Instructions Recorded Alfuzosin HCl [Uroxatral] 10 mg PO DAILY 12/01/16 Amitriptyline HCl [Elavil -] 25 mg PO HS 12/01/16 Apixaban [Eliquis -] 5 mg PO BID #60 tablet 12/04/16 Atorvastatin Ca [Lipitor] 40 mg PO HS #60 tablet 12/04/16 Pantoprazole Sodium [Protonix 40Mg 40 mg PO DAILY #30 tab 12/04/16 Ivpb (Pre-Docked)] Tamsulosin HCl [Flomax -] 0.4 mg PO DAILY@0830 #30 tab 12/04/16 Valsartan/Hydrochlorothiazide 1 each PO DAILY 02/13/17 [Valsartan-Hctz 320-12.5 mg Tab] Abnormal Lab Results 12/13/17 12/13/17 12/13/17 18:05 18:05 18:05 Eosinophils % 8.3 H PT with INR 16.00 H INR 1.42 H Potassium 3.3 L BUN 26 H D Creatinine 1.6 H D AST 45 H D Creatine Kinase 317 H Triglycerides 175 H HDL Cholesterol 66 H ASSESSMENT AND PLAN: Patient with multiple comorbid issues presenting with left sided tingling and weakness. 1. Cervical radiculopathy - Findings suggest neuropathy, but will obtain MRI of brain and C-spine to rule out CVA and cervical spine disease. A neurology consult as well as carotid doppler and ECHO are being done. PT evaluation. 2. 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 3. Afib: Rate is well controlled. Continue Eliquis for anticoagulation. 4. Hypokalemia - Likely due to HCTZ therapy and poor intake. Will hold HCTZ, check serum Mg level and give KCL orally 40 meq X 2 doses. Repeat BMP tomorrow. 5. BPH: Continue Flomax. 6. Hypertension - With HCTZ on hold, will use amlodipine 5 mg qd to control BP. 7. DVT prophylaxis -On Eliquis 8. Advance Directives -Full code.
[2017-12-13] MEDS ORDERED: APIXABAN 5 MG TABLET PO SCH ×2 (22:00)
[2017-12-13] MEDS ORDERED: APIXABAN 2.5 MG TABLET PO ONE (22:00)
[2017-12-13] MEDS: APIXABAN 5 MG TABLET PO SCH (22:49)
[2017-12-13] MEDS: ATORVASTATIN CA 40 MG TABLET (FP) PO SCH (22:49)
[2017-12-13] MEDS: AMITRIPTYLINE HCL 25 MG TABLET (FP) PO SCH (22:49)
[2017-12-14 00:42] VITALS: BMI 28.5
[2017-12-14] MEDS ORDERED: POTASSIUM CHLORIDE TABS 20 MEQ TABLET.ER (FP) PO ONE (06:00)
--- NOTE | 2017-12-14 09:13 | PN ---
Progress Note (short form) - Note Progress Note: c/o persistent numbness/weakness in LUE/LLE x4 days. no alleviating/worsening factors. denies any trauma. denies Cp, SOB, fever, chills, N/V/C/D, blurred vision, dysarthria Current Medications Generic Name Dose Route Start Last Admin Trade Name Freq PRN Reason Stop Dose Admin Amitriptyline HCl 25 mg 12/13/17 22:00 12/13/17 22:49 Elavil - PO 25 mg HS JARROD Administration Amlodipine Besylate 5 mg 12/14/17 10:00 Norvasc - PO DAILY JARROD Apixaban 5 mg 12/13/17 22:00 12/13/17 22:49 Eliquis - PO 5 mg BID JARROD Administration Atorvastatin Calcium 40 mg 12/13/17 22:00 12/13/17 22:49 Lipitor - PO 40 mg HS JARROD Administration Sodium Chloride 1,000 mls @ 42 mls/hr 12/13/17 17:45 12/13/17 18:15 Normal Saline - IV 42 mls/hr ASDIR JARROD Administration Pantoprazole Sodium 40 mg 12/14/17 10:00 Protonix - PO DAILY JARROD Tamsulosin HCl 0.4 mg 12/14/17 08:30 Flomax - PO DAILY@0830 JARROD Last Vital Signs Temp Pulse Resp BP Pulse Ox 98.2 F 70 20 104/57 97 12/14/17 03:00 12/14/17 06:45 12/14/17 06:45 12/14/17 06:45 12/13/17 20:30 General NAD CV S1 S2 irregular Lungs CTA B/L no wheezing/rales/rhonchi Abdomen soft NT/ND Extremities no pedal edema Neuro decreased sensation L cheek, LUE, LLE. rest of CN grossly intact, negative pronator drift. sensation 5/5 all extremities, no dysmetria, gait testing deferred back no spine point tenderness A/P 57yo M with PMH HTN. Dyslipidemia, CAD s/p 3 stents, CVA with no residual deficits, and afib on eliquis presented to the ER with LUE weakness and numbness x3 days 1. LUE/LLE numbness- concern for CVA and less likely radiculopathy as involving upper and lower extremity. awaiting MRI head and cervical spine to evaluate for CVA. cervical spine to r/o stenosis. carotid doppler pending. neuro eval. pt requesting ativan prior to imaging studies due to claustophobia. 2. hypokalemia- Kcl po 3. RHIANNA- likely pre-renal vs medication induced. awaiting this morning labs. check Ucr/Agustina. hold diovan at this time. renal dose all medications 4. HTN- controlled. hold diovan. cont norvasc. 5. CAD s/p 3 stents- no signs of acs. 6. Afib on eliquis- cont rate control. on eliquis 7. CVA no residual deficits- cont statin 8. DVT ppx- eliquis Visit type - Emergency Visit Emergency Visit: Yes ED Registration Date: 12/13/17 Care time: The patient presented to the Emergency Department on the above date and was hospitalized for further evaluation of their emergent condition. - New Patient This patient is new to me today: Yes Date on this admission: 12/14/17 - Critical Care Critical Care patient: No - Discharge Referral Referred to [facility] Med P.C.: No
[2017-12-14] MEDS ORDERED: PATIENT'S OWN MEDICATION (NON-FORMULARY) (Alfuzosin Hcl [Uroxatral] 10 MG) PO SCH (10:00)
[2017-12-14] MEDS: amLODIPine BESYLATE 5 MG TABLET (FP) PO SCH (10:16)
[2017-12-14] MEDS: PANTOPRAZOLE 40 MG TABLET (FP) PO SCH (10:17)
[2017-12-14] MEDS: TAMSULOSIN HCL 0.4 MG CAP.ER.24H (FP) PO SCH (10:17)
[2017-12-14] MEDS: APIXABAN 5 MG TABLET PO SCH ×2 (10:17→21:41)
[2017-12-14 10:40] LABS: BASO % 0.8 % (0-2.0); EOS % 8.4 % (0-4.5); HEMATOCRIT 38.4 % (35.4-49); HEMOGLOBIN 13.2 GM/dL (11.7-16.9); LYMPH % 25.6 % (8-40); MCH 29.9 pg (25.7-33.7); MCHC 34.5 g/dl (32.0-35.9); MEAN CELL VOLUME 86.8 fl (80-96); MEAN PLT VOLUME 10.3 fl (7.5-11.1); MONO % 7.6 % (3.8-10.2); NEUT % 57.6 % (42.8-82.8); PLATELET COUNT 175 K/MM3 (134-434); RBC 4.42 M/mm3 (4.00-5.60); RDW 12.2 % (11.9-15.9); WHITE BLOOD COUNT 7.3 K/mm3 (4.0-10.0)
[2017-12-14] MEDS: SODIUM CHLORIDE 1,000 ML IV SCH ×2 (10:41→21:42)
[2017-12-14] MEDS ORDERED: POTASSIUM CHLORIDE ORAL LIQUID 20 MEQ/15 ML PO ONE (10:45)
[2017-12-14 11:11] LABS: ALBUMIN 3.6 g/dl (3.4-5.0); ANION GAP 7 (8-16); BILIRUBIN,TOTAL 0.6 mg/dL (0.2-1.0); BLOOD UREA NITROGEN 21 mg/dL (7-18); CALCIUM 8.6 mg/dL (8.5-10.1); CHLORIDE 106 mmol/L (98-107); CO2 27 mmol/L (21-32); CREATININE 1.3 mg/dL (0.7-1.3); GLUCOSE,RANDOM 117 mg/dL (74-106); MAGNESIUM 2.4 mg/dL (1.8-2.4); PHOSPHOROUS 2.2 mg/dL (2.5-4.9); POTASSIUM 3.5 mmol/L (3.5-5.1); SGOT/AST 49 U/L (15-37); SGPT/ALT 64 U/L (12-78); SODIUM 140 mmol/L (136-145)
[2017-12-14 11:12] LABS: ALK PHOS 82 U/L (45-117)
--- NOTE | 2017-12-14 11:50 | CONSULT ---
Consult Consult Specialty:: Cardiology Referred by:: Medicine Reason for Consultation:: CVA with AF - History of Present Illness Chief Complaint: extremity weakness History of Present Illness: 57 yo with HTN, HPL Known to Dr Calles for chronic chest pain syndrome with Non obstructive CAD Known PAF with CHADs-Vasc2 = 1 on Apixaban and bystolic Now admitted with left upper and left lower extremity numbness with parasthesia HCT negative - History Source History Provided By: Medical Record Limitations to Obtaining History: Language Barrier - Alcohol/Substance Use Hx Alcohol Use: Yes - Smoking History Smoking history: Never smoked Have you smoked in the past 12 months: No Aproximately how many cigarettes per day: 0 Home Medications - Allergies Allergies/Adverse Reactions: Allergies Allergy/AdvReac Type Severity Reaction Status Date / Time camphor [From [employer]apor[employer]] Allergy Verified 12/13/17 14:49 eucalyptus Allergy Verified 12/13/17 14:49 [From [employer]] eucalyptus oil Allergy Verified 12/13/17 14:49 [From [employer]] menthol [From [employer]] Allergy Verified 12/13/17 14:49 turpentine oil Allergy Verified 12/13/17 14:49 [From [employer]] - Home Medications Home Medications: Ambulatory Orders Alfuzosin HCl [Uroxatral] 10 mg PO DAILY 12/01/16 Amitriptyline HCl [Elavil -] 25 mg PO HS 12/01/16 Apixaban [Eliquis -] 5 mg PO BID #60 tablet 12/04/16 Atorvastatin Ca [Lipitor] 40 mg PO HS #60 tablet 12/04/16 Pantoprazole Sodium [Protonix 40Mg Ivpb (Pre-Docked)] 40 mg PO DAILY #30 tab 04/14 Tamsulosin HCl [Flomax -] 0.4 mg PO DAILY@0830 #30 tab 12/04/16 Valsartan/Hydrochlorothiazide [Valsartan-Hctz 320-12.5 mg Tab] 1 each PO DAILY 02/13/17 Physical Exam Vital Signs: Vital Signs Temperature 97.9 F 12/14/17 11:00 Pulse Rate 77 12/14/17 11:00 Respiratory Rate 20 12/14/17 11:00 Blood Pressure 98/39 12/14/17 11:00 O2 Sat by Pulse Oximetry (%) 97 12/14/17 11:00 Constitutional: Yes: No Distress, Calm Eyes: Yes: WNL HENT: Yes: WNL Neck: Yes: WNL Cardiovascular: Yes: Regular Rate and Rhythm Respiratory: Yes: Regular Gastrointestinal: Yes: WNL Musculoskeletal: Yes: WNL Edema: No ...Motor Strength: LUE (Decreased motor strength on my exam (4/5)), LLE Labs: CBC, BMP 12/14/17 10:05 12/14/17 10:05 Imaging - Results EKG: Image Reviewed (ECG on 12/13/2017 at 18:24 NSR with short CA (92msec)) Assessment/Plan 57 yo male with HTN, HPL PAF on apixaban now admitted with LUE/LLE numbness/ decreased strength. 1) PAF -According to Dr. Calles prior note, patient had prior episode of AF (Seen on ECG in 2012) in the past and was placed on NOAC for CHADs-Vasc2 = 1. -Now with ?CVA, (pure sensory stroke). ?compliance with NOAC, presumed embolic. -Tele so far has not revealed any AF -Would continue Apixaban -Neuro following -Would check echo, last echo here was in 2012 with preserved biventricular size and function. No sig valvular abnormality seen. 2) HTN -Well controlled -OK to hold amlodipine if desired elevated MAP in the setting of CVA?
[2017-12-14] MEDS ORDERED: NAPH,MB-DB/K PH,MBDB POWDER PACKET PO ONE (13:23)
--- NOTE | 2017-12-14 14:19 | CON.NEURO ---
Consult Consult Specialty:: neurology Referred by:: dr miller Reason for Consultation:: left hemisensory deficit - History of Present Illness Chief Complaint: "calambre" History of Present Illness: Patient notes onset of paresthesia/numbness in left arm and leg, without weakness. A little improved over admission but still persistent. No prior history of such. Extensive history of cardiovascualr disease. 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 (no residual deficits) Cardio/Vascular: Yes: AFIB, CAD, Other (cardiomyopathy) - Alcohol/Substance Use Hx Alcohol Use: Yes - Smoking History Smoking history: Never smoked Have you smoked in the past 12 months: No Aproximately how many cigarettes per day: 0 Home Medications - Allergies Allergies/Adverse Reactions: Allergies Allergy/AdvReac Type Severity Reaction Status Date / Time camphor [From Vicks Vaporub] Allergy Verified 12/13/17 14:49 eucalyptus Allergy Verified 12/13/17 14:49 [From Vicks Vaporub] eucalyptus oil Allergy Verified 12/13/17 14:49 [From Vicks Vaporub] menthol [From Vicks Vaporub] Allergy Verified 12/13/17 14:49 turpentine oil Allergy Verified 12/13/17 14:49 [From Vicks Vaporub] - Home Medications Home Medications: Ambulatory Orders Alfuzosin HCl [Uroxatral] 10 mg PO DAILY 12/01/16 Amitriptyline HCl [Elavil -] 25 mg PO HS 12/01/16 Apixaban [Eliquis -] 5 mg PO BID #60 tablet 12/04/16 Atorvastatin Ca [Lipitor] 40 mg PO HS #60 tablet 12/04/16 Pantoprazole Sodium [Protonix 40Mg Ivpb (Pre-Docked)] 40 mg PO DAILY #30 tab 04/14 Tamsulosin HCl [Flomax -] 0.4 mg PO DAILY@0830 #30 tab 12/04/16 Valsartan/Hydrochlorothiazide [Valsartan-Hctz 320-12.5 mg Tab] 1 each PO DAILY 02/13/17 Physical Exam-Neuro Vital Signs: Vital Signs Temperature 97.9 F 12/14/17 11:00 Pulse Rate 77 12/14/17 11:00 Respiratory Rate 20 12/14/17 11:00 Blood Pressure 98/39 12/14/17 11:00 O2 Sat by Pulse Oximetry (%) 97 12/14/17 11:00 Constitutional: Yes: Well Nourished Labs: CBC, BMP 12/14/17 10:05 12/14/17 10:05 INR, PTT INR 1.42 (0.82-1.09) H 12/13/17 18:05 - Neuro Exam Level Of Consciousness: Yes: Alert, Oriented to Person, Oriented to Place, Oriented to Time Eyes: Yes: CHRISTOPH Speech: WNL Cranial Nerves II-XII Intact: Yes DTR's: 0 Left Achilles, 0 Right Achilles, 2+ Left Bicep, 2+ Right Bicep, 2+ Left Tricep, 2+ Right Tricep, 2+ Left Brachioradialis, 2+ Right Brachioradialis Babinski: Absent Response to light touch: Abnormal (reduced on left) Motor Strength: 5/5: Left Arm, Right Arm, Left Leg, Right Leg Gait: Normal NIH Stroke Scale - Initial Evaluation Level of consciousness: Alert Ask patient the month and their age: Answers both correctly Ask patient to open & close eyes; make fist and let go: Obeys both correctly Best gaze (horizontal eye movement): Normal Visual field testing: No visual field loss Facial paresis (Show teeth/raise eyebrows/close eyes tight): Normal symmetrical movement Motor Function: Left Arm: Normal Motor Function: Right Arm: Normal (extends arm 90 (or 45) degrees for 10 seconds without drift Motor Function: Left Leg: Normal (extends leg 30 degrees for 5 seconds without drift) Motor Function: Right Leg: Normal (extends leg 30 degrees for 5 seconds without drift) Limb Ataxia: No ataxia Sensory(Use pinprick test arms,legs,trunk,face/side to side): Mild to moderate decrease in sensation Best language (Describe picture, name items, read sentences): No Aphasia Dysarthria (read several words): Normal articulation Extinction and Inattention: No abnormality - Total Score NIH Stroke Scale Score: 1 Imaging - Results Chest X-ray: Report Reviewed Cat Scan: Report Reviewed, Image Reviewed (Unremarkable Head Ct) Problem List - Problems (1) Lacunar stroke Code(s): I63.9 - CEREBRAL INFARCTION, UNSPECIFIED Assessment/Plan Pure sensory stroke, most likely, 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 embolic phenomenon given history. He is claustrophobic so needs premedication for MRI, but would get MRI brain. Doubt polyneuropathy in left arm and left leg only.
[2017-12-14] MEDS: ATORVASTATIN CA 40 MG TABLET (FP) PO SCH (21:41)
[2017-12-14] MEDS: AMITRIPTYLINE HCL 25 MG TABLET (FP) PO SCH (21:41)
[2017-12-14] MEDS ORDERED: APIXABAN 5 MG TABLET PO SCH (22:00)
[2017-12-15 07:08] LABS: ANION GAP 5 (8-16); BLOOD UREA NITROGEN 18 mg/dL (7-18); CALCIUM 8.6 mg/dL (8.5-10.1); CHLORIDE 106 mmol/L (98-107); CO2 30 mmol/L (21-32); CREATININE 1.3 mg/dL (0.7-1.3); GLUCOSE,RANDOM 112 mg/dL (74-106); MAGNESIUM 2.2 mg/dL (1.8-2.4); POTASSIUM 3.7 mmol/L (3.5-5.1); SODIUM 141 mmol/L (136-145)
[2017-12-15] MEDS: PANTOPRAZOLE 40 MG TABLET (FP) PO SCH (09:38)
[2017-12-15] MEDS: APIXABAN 5 MG TABLET PO SCH ×2 (09:38→21:21)
[2017-12-15] MEDS: amLODIPine BESYLATE 5 MG TABLET (FP) PO SCH (09:38)
[2017-12-15] MEDS: TAMSULOSIN HCL 0.4 MG CAP.ER.24H (FP) PO SCH (09:38)
--- NOTE | 2017-12-15 10:54 | PN ---
Progress Note, Physician History of Present Illness: No events overnight States his left upper extremity is improving Some chest pain this AM Tele: No AF, NSR 70s - Current Medication List Current Medications: Active Medications Amitriptyline HCl (Elavil -) 25 mg PO HS [facility] Last Admin: 12/14/17 21:41 Dose: 25 mg Amlodipine Besylate (Norvasc -) 5 mg PO DAILY [facility] Last Admin: 12/15/17 09:38 Dose: 5 mg Apixaban (Eliquis -) 5 mg PO BID [facility] Last Admin: 12/15/17 09:38 Dose: 5 mg Atorvastatin Calcium (Lipitor -) 40 mg PO HS [facility] Last Admin: 12/14/17 21:41 Dose: 40 mg Sodium Chloride (Normal Saline -) 1,000 mls @ 42 mls/hr IV ASDIR [facility] Last Admin: 12/14/17 21:42 Dose: Not Given Pantoprazole Sodium (Protonix -) 40 mg PO DAILY [facility] Last Admin: 12/15/17 09:38 Dose: 40 mg Tamsulosin HCl (Flomax -) 0.4 mg PO DAILY@0830 [facility] Last Admin: 12/15/17 09:38 Dose: 0.4 mg - Objective Vital Signs: Vital Signs Temperature 98.0 F 12/15/17 02:00 Pulse Rate 74 12/15/17 06:00 Respiratory Rate 20 12/15/17 06:00 Blood Pressure 112/60 12/15/17 06:00 O2 Sat by Pulse Oximetry (%) 97 12/14/17 11:00 Constitutional: Yes: No Distress Eyes: Yes: WNL HENT: Yes: WNL Neck: Yes: WNL Cardiovascular: Yes: Regular Rate and Rhythm Respiratory: Yes: Regular, CTA Bilaterally Gastrointestinal: Yes: WNL Edema: No Labs: CBC, BMP 12/14/17 10:05 12/15/17 06:00 INR, PTT INR 1.42 (0.82-1.09) H 12/13/17 18:05 Assessment/Plan 57 yo male with HTN, HPL PAF on apixaban now admitted with LUE/LLE numbness/ decreased strength. 1) PAF -According to Dr. Calles prior note, patient had prior episode of AF (Seen on ECG in 2012) in the past and was placed on NOAC for CHADs-Vasc2 = 1. -Now with ?CVA, (pure sensory stroke). ?compliance with NOAC, presumed embolic. -Tele so far has not revealed any AF -Would continue Apixaban -Neuro following. Brain MRI no acute infarct. -Would check echo, last echo here was in 2012 with preserved biventricular size and function. No sig valvular abnormality seen. 2) HTN -Well controlled -No infarct on MRI. Can continue amlodipine 3) Chest pain -Chronic issue with non-obstructive CAD on cath according to prior notes -Continue to monitor
--- NOTE | 2017-12-15 11:41 | PN ---
Physical Exam: SUBJECTIVE: Patient seen and examined. He is still complaining of numbness, paresthesias and cramping in left upper and lower extremity. OBJECTIVE: Vital Signs Period Temp Pulse Resp BP Sys/Harper Pulse Ox Last 24 Hr 97.8 F-98.0 F 74-88 20-20 112-121/60-83 GENERAL: The patient is awake, alert, and fully oriented, in no acute distress. HEAD: Normal with no signs of trauma. EYES: extraocular movements intact, sclera anicteric, conjunctiva clear. ENT: oropharynx clear without exudates, moist mucous membranes. NECK: Trachea midline, full range of motion, supple. LUNGS: clear to auscultation bilaterally, no wheezes, no crackles, no accessory muscle use. HEART: Regular rate and rhythm, S1, S2 without murmur, rub or gallop. EXTREMITIES: no edema. NEUROLOGICAL: Normal speech, no facial asymmetry, motor 5/5, gait not observed. PSYCH: Normal mood, normal affect. SKIN: Warm, dry, normal turgor, no rashes. Laboratory Results - last 24 hr 12/15/17 06:00 Sodium 141 Potassium 3.7 Chloride 106 Carbon Dioxide 30 Anion Gap 5 L BUN 18 Creatinine 1.3 Random Glucose 112 H Calcium 8.6 Phosphorus 3.0 D Magnesium 2.2 Active Medications Generic Name Dose Route Start Last Admin Trade Name Fredq PRN Reason Stop Dose Admin Amitriptyline HCl 25 mg 12/13/17 22:00 12/14/17 21:41 Elavil - PO 25 mg HS JARROD Administration Amlodipine Besylate 5 mg 12/14/17 10:00 12/15/17 09:38 Norvasc - PO 5 mg DAILY JARROD Administration Apixaban 5 mg 12/13/17 22:00 12/15/17 09:38 Eliquis - PO 5 mg BID JARROD Administration Atorvastatin Calcium 40 mg 12/13/17 22:00 12/14/17 21:41 Lipitor - PO 40 mg HS JARROD Administration Sodium Chloride 1,000 mls @ 42 mls/hr 12/13/17 17:45 12/14/17 21:42 Normal Saline - IV Not Given ASDIR JARROD Pantoprazole Sodium 40 mg 12/14/17 10:00 12/15/17 09:38 Protonix - PO 40 mg DAILY JARROD Administration Tamsulosin HCl 0.4 mg 12/14/17 08:30 12/15/17 09:38 Flomax - PO 0.4 mg DAILY@0830 [facility] Administration ASSESSMENT/PLAN: The patient is a 57 year old Fijian speaking male with a PMH of HTN, Hyperlipidemia, CAD, s/p 3 stents, CVA without deficits, A.Fib, on Eliquis, MICHELLE on CPAP, cardiomegaly, that presented to the hospital complaining of numbness and cramping in left upper and left lower extremity x 3 days and weakness in LUE (hand). He is admitted to r/o stroke. R/O stroke: -the patient is complaining of numbness and cramping in LUE, LLE, left side of his face. Differential diagnosis include ischemic stroke as well as radiculopathy. -We obtained CT and MRI that was negative for acute events -c scpine MRI C6-7 spinal stenosis, C5-6 circumf disc protrusion with osteopphyte and central protrusion -Dr Becker was consulted, will follow up recommendations -ECHO pending -will resume his AC: Eliquis 5 mg BID -cardiac monitoring on telemetry -neuro checks ordered Hypokalemia: -repleated RHIANNA: -Cr 1.6 with baseline 1.0-1.1, resolving, today 1.3 -will continue oral hydration -avoid nephrotoxic substances -hold HCTZ HTN: -cont Norvasc 5 mg in AM instead of Valsartan/HCTZ Hyperlipidemia: -continue Lipitor 40 mg A.Fib: -continue Eliquis 5 mg daily -EKG NSR, no beth/std H/o Cardiomegaly: -will f/u ECHO and Dr Calles recommendations History of depression: -cont Amitryptiline BPH: -cont Flomax and Unoxatral MICHELLE: -will continue CPAP at night DVT PPX: -Eliquis 5 BID F/E/N: no/nl/Low Na diet Dispo: tele obs Problem List - Problems (1) Numbness of left hand Code(s): R20.0 - ANESTHESIA OF SKIN (2) Polyradiculopathy Code(s): M54.10 - RADICULOPATHY, SITE UNSPECIFIED (3) Hypertension Code(s): I10 - ESSENTIAL (PRIMARY) HYPERTENSION (4) Nephrolithiasis Code(s): N20.0 - CALCULUS OF KIDNEY (5) Palpitations Code(s): R00.2 - PALPITATIONS Visit type - Emergency Visit Emergency Visit: Yes ED Registration Date: 12/13/17 Care time: The patient presented to the Emergency Department on the above date and was hospitalized for further evaluation of their emergent condition. - New Patient This patient is new to me today: No - Critical Care Critical Care patient: No - Discharge Referral Referred to [facility] No
--- NOTE | 2017-12-15 13:43 | PN ---
Teaching Attending Note Name of Resident: Carol Mcgrath ATTENDING PHYSICIAN STATEMENT I saw and evaluated the patient. I reviewed the resident's note and discussed the case with the resident. I agree with the resident's findings and plan as documented. SUBJECTIVE: OBJECTIVE: ASSESSMENT AND PLAN: A/P 57yo M with PMH HTN. Dyslipidemia, CAD s/p 3 stents, CVA with no residual deficits, and paroxysmal atrial fibrillation on apixiban presented to the ER with LUE weakness and numbness x3 days. patient is doing well today he still has some complaints of sensory deficit but improed 1. LUE/LLE numbness- concern for CVA and less likely radiculopathy as involving upper and lower extremity. awaiting MRI head and cervical spine to evaluate for CVA. cervical spine to r/o stenosis. carotid doppler pending. neuro eval. pt requesting ativan prior to imaging studies due to claustrophobia. obtain an echocardiogram with bubble study to evaluate the patient for possible PFO vs ASD 2. hypokalemia- Kcl po 3. RHIANNA- likely pre-renal vs medication induced. awaiting this morning labs. check Ucr/Agustina. hold diovan at this time. renal dose all medications 4. HTN- controlled. hold diovan. cont norvasc. 5. CAD s/p 3 stents- no signs of acs. 6. paroxysmal atrial fibrillation on apixiban - patient is in sinus rhythm CHADVASC score 3, patient would benefit from oral anticoagulation - patient on apixiban, however if the patient has paroxysmal atrial fibrillation patient might benefit from EP evaluation for EP study for a possible ablation as an outpatient 7. CVA no residual deficits- cont statin 8. DVT ppx- eliquis
--- NOTE | 2017-12-15 14:11 | PN ---
Progress Note, Physician Chief Complaint: sensory changes in left arm and leg History of Present Illness: Patient notes onset of paresthesia/numbness in left arm and leg, without weakness. A little improved over admission but still persistent. Possible prior history of such. Extensive history of cardiovascualr disease. He now suggests that there may also be some paresthesias in the right leg as well, though more in the left, adn in any case, the left side is improving. - Current Medication List Current Medications: Active Medications Amitriptyline HCl (Elavil -) 25 mg PO [facility] Last Admin: 12/14/17 21:41 Dose: 25 mg Amlodipine Besylate (Norvasc -) 5 mg PO DAILY [facility] Last Admin: 12/15/17 09:38 Dose: 5 mg Apixaban (Eliquis -) 5 mg PO BID [facility] Last Admin: 12/15/17 09:38 Dose: 5 mg Atorvastatin Calcium (Lipitor -) 40 mg PO [facility] Last Admin: 12/14/17 21:41 Dose: 40 mg Sodium Chloride (Normal Saline -) 1,000 mls @ 42 mls/hr IV ASDIR [facility] Last Admin: 12/14/17 21:42 Dose: Not Given Pantoprazole Sodium (Protonix -) 40 mg PO DAILY [facility] Last Admin: 12/15/17 09:38 Dose: 40 mg Tamsulosin HCl (Flomax -) 0.4 mg PO DAILY@0830 [facility] Last Admin: 12/15/17 09:38 Dose: 0.4 mg - Objective Vital Signs: Vital Signs Temperature 97.9 F 12/15/17 10:00 Pulse Rate 89 12/15/17 10:00 Respiratory Rate 20 12/15/17 11:00 Blood Pressure 117/81 12/15/17 10:00 O2 Sat by Pulse Oximetry (%) 97 12/14/17 11:00 Neurological: Yes: Oriented, Babinski negative, Cran Nerves II-XII Intact, Other (Motor 5/5, sensory intact.) Labs: CBC, BMP 12/14/17 10:05 12/15/17 06:00 INR, PTT INR 1.42 (0.82-1.09) H 12/13/17 18:05 - ....Imaging MRI: Report Reviewed, Image Reviewed (Brain negative, C spine showed C4-5, C5-6 , C6-7 disc osteophyte complexes with encroachment on the cord.) Problem List - Problems (1) Cervical radiculopathy Code(s): M54.12 - RADICULOPATHY, CERVICAL REGION (2) Polyradiculopathy Code(s): M54.10 - RADICULOPATHY, SITE UNSPECIFIED Assessment/Plan Normal MRI and changing story. I think that I am coming around to think that this is more likely radicular in nature. I see no evidence of infarction on MRI an no clinical evidence of cervical myelopathy. We can fu as outpatient. Thanks.
[2017-12-15] MEDS: AMITRIPTYLINE HCL 25 MG TABLET (FP) PO SCH (21:21)
[2017-12-15] MEDS: ATORVASTATIN CA 40 MG TABLET (FP) PO SCH (21:21)
[2017-12-16 07:17] LABS: CHLORIDE 106 mmol/L (98-107); POTASSIUM 3.7 mmol/L (3.5-5.1); SODIUM 141 mmol/L (136-145)
[2017-12-16 07:39] LABS: ALBUMIN 3.5 g/dl (3.4-5.0); ALK PHOS 83 U/L (45-117); ANION GAP 8 (8-16); BILIRUBIN,TOTAL 0.5 mg/dL (0.2-1.0); BLOOD UREA NITROGEN 20 mg/dL (7-18); CALCIUM 8.8 mg/dL (8.5-10.1); CO2 27 mmol/L (21-32); CREATININE 1.1 mg/dL (0.7-1.3); GLUCOSE,RANDOM 109 mg/dL (74-106); SGOT/AST 67 U/L (15-37); SGPT/ALT 93 U/L (12-78)
[2017-12-16] MEDS: PANTOPRAZOLE 40 MG TABLET (FP) PO SCH (09:27)
[2017-12-16] MEDS: amLODIPine BESYLATE 5 MG TABLET (FP) PO SCH (09:28)
[2017-12-16] MEDS: APIXABAN 5 MG TABLET PO SCH (09:28)
[2017-12-16] MEDS: TAMSULOSIN HCL 0.4 MG CAP.ER.24H (FP) PO SCH (09:28)
--- NOTE | 2017-12-16 12:19 | PN ---
Teaching Attending Note Name of Resident: Williams Nesbitt ATTENDING PHYSICIAN STATEMENT I saw and evaluated the patient. I reviewed the resident's note and discussed the case with the resident. I agree with the resident's findings and plan as documented. SUBJECTIVE:numbness limited to the L hand only. none appreciated in the arm or the leg. states sometimes he feels it in the entire arm then radiates down his le OBJECTIVE: Last Vital Signs Temp Pulse Resp BP Pulse Ox 97.9 F 93 H 20 143/85 98 12/16/17 09:00 12/16/17 09:00 12/16/17 09:00 12/16/17 09:00 12/16/17 05:00 General NAD Neuro decreased sensation of the hand. slight decrease in the LUE. A/P 57yo M with PMH HTN. Dyslipidemia, CAD s/p 3 stents, CVA with no residual deficits, and afib on eliquis presented to the ER with LUE weakness and numbness x3 days 1. LUE/LLE numbness- changing presentation. MRI negative for acute CVA. c-spine shows C5-C6 R paracentral protrusion mildly enroaching the R aspect of the cord with protrusion on C4-C5 as well. would recommend PT. and follow up with neurosurgery as outpatient. neuro on board. rest of workup negative. echo pending 2. hypokalemia- resolved 3. RHIANNA- likely pre-renal vs medication induced. trending down. can re-start diovan on discharge. 4. HTN- controlled. re-start diovan. cont norvasc. 5. CAD s/p 3 stents- no signs of acs. 6. Afib on eliquis- cont rate control. on eliquis 7. CVA no residual deficits- cont statin 8. DVT ppx- eliquis 9. can d/c home pending results of echo
--- NOTE | 2017-12-16 13:32 | PN ---
Progress Note (short form) - Note Progress Note: Current Medications Amitriptyline HCl (Elavil -) 25 mg PO HS [facility] Last Admin: 12/15/17 21:21 Dose: 25 mg Amlodipine Besylate (Norvasc -) 5 mg PO DAILY [facility] Last Admin: 12/16/17 09:28 Dose: 5 mg Apixaban (Eliquis -) 5 mg PO BID [facility] Last Admin: 12/16/17 09:28 Dose: 5 mg Atorvastatin Calcium (Lipitor -) 40 mg PO HS [facility] Last Admin: 12/15/17 21:21 Dose: 40 mg Sodium Chloride (Normal Saline -) 1,000 mls @ 42 mls/hr IV ASDIR [facility] Last Admin: 12/14/17 21:42 Dose: Not Given Pantoprazole Sodium (Protonix -) 40 mg PO DAILY [facility] Last Admin: 12/16/17 09:27 Dose: 40 mg Tamsulosin HCl (Flomax -) 0.4 mg PO DAILY@0830 [facility] Last Admin: 12/16/17 09:28 Dose: 0.4 mg Vital Signs - 24 hr 12/15/17 12/15/17 12/15/17 14:00 18:00 21:00 Temperature 97.4 F L 98.0 F Pulse Rate 85 98 H Respiratory 20 20 20 Rate Blood Pressure 123/61 104/84 O2 Sat by Pulse 96 Oximetry (%) 12/15/17 12/16/17 12/16/17 22:00 01:53 05:00 Temperature 98.1 F 98.0 F 97.7 F Pulse Rate 90 77 72 Respiratory 20 20 20 Rate Blood Pressure 128/79 125/65 102/62 O2 Sat by Pulse 98 Oximetry (%) 12/16/17 09:00 Temperature 97.9 F Pulse Rate 93 H Respiratory 20 Rate Blood Pressure 143/85 O2 Sat by Pulse Oximetry (%) Intake & Output 12/14/17 12/15/17 12/16/17 12/17/17 07:59 07:59 07:59 07:59 Intake Total 1000 480 550 Balance 1000 480 550 Weight 161 lb 6.4 oz CBC, BMP 12/14/17 10:05 12/16/17 06:25
[2017-12-16 15:49] VITALS: BP 142/77; PULSE 90; TEMP 98.8
--- NOTE | 2017-12-16 18:11 | DS ---
Physical Exam: SUBJECTIVE: Patient seen and examined at bedside. No acute events. Pt feels well. OBJECTIVE: Vital Signs Period Temp Pulse Resp BP Sys/Harper Pulse Ox Last 24 Hr 97.7 F-98.8 F 72-98 18-20 102-143/62-85 96-98 PHYSICAL EXAM GENERAL: The patient is awake, alert, and fully oriented, in no acute distress. HEAD: Normal with no signs of trauma. EYES: sclera anicteric, conjunctiva clear. ENT: oropharynx clear without exudates, moist mucous membranes. NECK: Trachea midline, full range of motion, supple. LUNGS: Breath sounds equal, clear to auscultation bilaterally, no wheezes, no crackles, no accessory muscle use. HEART: Regular rate and rhythm, S1, S2 without murmur, rub or gallop. ABDOMEN: Soft, nontender, nondistended, normoactive bowel sounds, no guarding, no rebound, no hepatosplenomegaly, no masses. EXTREMITIES: 2+ pulses, warm, well-perfused, no edema. NEUROLOGICAL: Cranial nerves II through XII grossly intact. Normal speech, gait not observed. PSYCH: Normal mood, normal affect. SKIN: Warm, dry, normal turgor, no rashes or lesions noted. LABS Laboratory Results - last 24 hr 12/16/17 06:25 Sodium 141 Potassium 3.7 Chloride 106 Carbon Dioxide 27 Anion Gap 8 BUN 20 H Creatinine 1.1 Creat Clearance w eGFR > 60 Random Glucose 109 H Calcium 8.8 Total Bilirubin 0.5 AST 67 H D ALT 93 H D Alkaline Phosphatase 83 Total Protein 7.0 Albumin 3.5 HOSPITAL COURSE: Date of Admission:12/13/17 Date of Discharge: 12/16/17 The patient is a 57 year old Occitan speaking male with a PMH of HTN, Hyperlipidemia, CAD, s/p 3 stents, CVA without deficits, A.Fib, on Eliquis, MICHELLE on CPAP, cardiomegaly, that presented to the hospital complaining of numbness and cramping in left upper and left lower extremity x 3 days and weakness in LUE (hand). He is admitted to r/o stroke. Pt had CT, and MRI negative for acute events. However, C-spine MRI revealed C6- 7 spinal stenosis, C5-6 circumf disc protrusion with osteopphyte and central protrusion. Neurology (Dr Becker) was consulted ECHO was unremarkable. Eliquis was resumed and pt was monitored on telemetry Pt was found to have RHIANNA which resolved with hydration. Pt's HTN was treated with Norvasc HLD was treated with Lipitor Pt's AF was treated with eliquis. Though, EKG revealed NSR, no beth/std Pt had Hx Cardiomegaly. Echo was unremarkable. Cardio (Dr Calles) was consulted Depression was treated with Amitryptiline BPH was treated with Flomax and Unoxatral MICHELLE was treated with CPAP at night Pt is not in distress and stable for discharge. Minutes to complete discharge: 30 Discharge Summary Reason For Visit: NUMBNESS OF LEFT HAND; POLYRADICULOPATHY Condition: Good - Instructions Diet, Activity, Other Instructions: You were evaluated in the hospital to rule out a stroke. Imaging studies showed you did not have a stroke Your numbness in your hand could be due to one of your vertebrae pressing near a nerve. It is recommended that you start physical therapy for this. If it does not improve you should follow up with your doctor to be evaluated by a neurosurgeon as you may require surgery. You were started on a new medication to help control your blood pressure. [facility]. Take this medication every day. Follow up with your primary care doctor in a week to see if you need further adjustment to your medication. You need to follow up with your primary care doctor within 1 week. You need to follow up with your neurologist doctor within 1 week. You need to follow up with your padded box sewer within 1 week. You will need to go for physical therapy. If this does not resolve your arm symptoms, you may need to follow up with a neurosurgeon about your spine. You can speak with your primary care doctor about this if you need help. Referrals: Neto Becker MD [Staff Physician] - 1 Week Edgar Bautista MD [Primary Care Provider] - 1 Week Kirk Calles MD [Staff Physician] - 1 Week Disposition: HOME - Home Medications Comprehensive Discharge Medication List: Ambulatory Orders Alfuzosin HCl [Uroxatral] 10 mg PO DAILY 12/01/16 Amlodipine Besylate [Norvasc -] 5 mg PO DAILY #30 tablet 12/16/17 Apixaban [Eliquis -] 5 mg PO BID tablet 12/16/17 Atorvastatin Ca [Lipitor] 20 mg PO HS 12/16/17 Chlorthalidone 25 mg PO DAILY 12/16/17 Fluticasone Prop 0.05% Nasal [Flonase -] 1 - 2 spray NS BID 12/16/17 Olmesartan Medoxomil [Benicar -] 40 mg PO DAILY 12/16/17 Pantoprazole Sodium [Protonix -] 40 mg PO DAILY #30 tablet.ec 12/16/17 This patient is new to me today: No Emergency Visit: No Critical Care patient: No - Discharge Referral Referred to [facility] No
--- NOTE | 2017-12-17 00:41 | EKG ---
Test Reason : Blood Pressure : / mmHG Vent. Rate : 071 BPM Atrial Rate : 071 BPM P-R Int : 108 ms QRS Dur : 102 ms QT Int : 402 ms P-R-T Axes : 046 030 047 degrees QTc Int : 436 ms SINUS RHYTHM WITH SHORT CA OTHERWISE NORMAL ECG WHEN COMPARED WITH ECG OF 13-FEB-2017 07:34, VENT. RATE HAS DECREASED Confirmed by AARON LALA MD ([id number]) on 12/17/2017 12:40:58 AM Referred By: Confirmed By:AARON LALA MD
== END 2017-12-16 17:00 | disposition home or self-care (01) ==
LOC: JER 14:47 → JERBED 19:15 → J4W 20:29
PROVIDERS: ADMIT Internal Medicine; ATTEND Internal Medicine
PROC: 3E033GC Introduction of Other Therapeutic Substance into Peripheral Vein, Percutaneous Approach (ICD-10-PCS; principal; 2017-12-13)
DX: R20.0 Anesthesia of skin (principal); G61.81 Chronic inflammatory demyelinating polyneuritis; I10 Essential (primary) hypertension; R00.2 Palpitations; N20.0 Calculus of kidney; E78.5 Hyperlipidemia, unspecified; I63.9 Cerebral infarction, unspecified; I25.2 Old myocardial infarction; I48.0 Paroxysmal atrial fibrillation; I51.7 Cardiomegaly; N40.0 Benign prostatic hyperplasia without lower urinary tract symptoms; E87.6 Hypokalemia; N17.9 Acute kidney failure, unspecified; F32.9 Major depressive disorder, single episode, unspecified; G47.33 Obstructive sleep apnea (adult) (pediatric); Z99.89 Dependence on other enabling machines and devices; Z79.01 Long term (current) use of anticoagulants; Z88.8 Allergy status to other drugs, medicaments and biological substances; Z95.5 Presence of coronary angioplasty implant and graft
CPT/HCPCS: 36415; 70450-TC; 70551-TC; 71045-TC-FY; 72141-TC; 80048; 80053; 81003; 82465; 82550; 82553; 83718; 83721; 83735; 84100; 84478; 84484; 85025; 85610; 86850; 86900; 86901; 93005; 93010; 93306-TC; 93880-TC; 96374; 97116-GP; 97161-GP; 99284-25; G0378; J7030

== ENCOUNTER 2018-01-19 15:09 | Observation (INO) | payer OTHER ==
[2018-01-19 15:27] VITALS: BMI 28.7
[2018-01-19] MEDS ORDERED: ONDANSETRON 4 MG/2 ML VIAL ONE (15:39)
[2018-01-19] MEDS ORDERED: ONDANSETRON 4 MG/2 ML VIAL IVPUSH ONE (15:46)
[2018-01-19] MEDS ORDERED: SODIUM CHLORIDE 0.9% 500 ML INFUS.BAG IV ONE (15:46)
--- NOTE | 2018-01-19 15:58 | PDOC ---
History of Present Illness - General Chief Complaint: Chest Pain Stated Complaint: CHEST PAIN Time Seen by Provider: 01/19/18 15:29 History Source: Patient Exam Limitations: No Limitations - History of Present Illness Initial Comments: This is a 57 YOM with h/o HTN, HLD, CAD s/p stents x3, CVA (in 1993 without deficits), A-fib on Eliquis, MICHELLE on CPAP, cardiomegaly, GERD, hiatal hernia, kidney stones, RHIANNA, BPH, and depression on amitryptiline, who p/w chest pain, diffuse bodily cramping/numbness/tingling, tremors, headache, nausea, vomiting, and diarrhea. He notes that the symptoms began with diarrhea with blood three days ago. This morning he had the onset of frontal headache, and thoughout the day he became more and more nauseated. About one hour prior to arrival in the ED he had an onset of 10/10 left-sided chest pain radiating to the entire front of the chest but not to the back, and just after arriving in the ED he had one episode of NBNB vomiting. He has had similar headache and chest pain in the past. Past History - Past Medical History Allergies/Adverse Reactions: Allergies Allergy/AdvReac Type Severity Reaction Status Date / Time camphor [From Vicks Vaporub] Allergy Verified 01/19/18 15:17 eucalyptus Allergy Verified 01/19/18 15:17 [From Vicks Vaporub] eucalyptus oil Allergy Verified 01/19/18 15:17 [From Vicks Vaporub] menthol [From Vicks Vaporub] Allergy Verified 01/19/18 15:17 turpentine oil Allergy Verified 01/19/18 15:17 [From Vicks Vaporub] Home Medications: Ambulatory Orders Alfuzosin HCl [Uroxatral] 10 mg PO DAILY 12/01/16 Amlodipine Besylate [Norvasc -] 5 mg PO DAILY #30 tablet 12/16/17 Apixaban [Eliquis -] 5 mg PO BID tablet 12/16/17 Atorvastatin Ca [Lipitor] 20 mg PO HS 12/16/17 Chlorthalidone 25 mg PO DAILY 12/16/17 Fluticasone Prop 0.05% Nasal [Flonase -] 1 - 2 spray NS BID 12/16/17 Olmesartan Medoxomil [Benicar -] 40 mg PO DAILY 12/16/17 Pantoprazole Sodium [Protonix -] 40 mg PO DAILY #30 tablet.ec 12/16/17 Amitriptyline HCl [Elavil -] 25 mg PO HS tablet 01/20/18 Anemia: No Asthma: No Cancer: No Cardiac Disorders: Yes (1 NH, 3 CATHS, CARDIOMEGALY) CVA: No COPD: No CHF: No Dementia: No Diabetes: No GI Disorders: Yes (ABD. PAIN, GALLSTONES) Disorders: No HTN: Yes Hypercholesterolemia: Yes Liver Disease: Yes (ELEVATED ENZYMES, STILL DRINKS ETOH A FEW X PER WEEK) Seizures: No Thyroid Disease: No - Surgical History Abdominal Surgery: Yes (RIGHT INGUINAL HERNIA REPAIR) Appendectomy: No Cardiac Surgery: Yes (CARDIAC CATHETERIZATION) Cholecystectomy: No Lung Surgery: No Neurologic Surgery: No Orthopedic Surgery: No - Immunization History Immunization Up to Date: Yes - Suicide/Smoking/Psychosocial Hx Smoking Status: No Smoking History: Never smoked Have you smoked in the past 12 months: No Number of Cigarettes Smoked Daily: 0 Hx Alcohol Use: Yes Drug/Substance Use Hx: No Substance Use Type: None Hx Substance Use Treatment: No Cardiac Specific PMH - Complaint Specific PMHX GERD: No Pacemaker: No Review of Systems - Review of Systems Able to Perform ROS?: Yes Constitutional: Yes: Chills, Diaphoresis, Malaise. No: Fever, Unexplained wgt Loss HEENTM: No: Nose Congestion, Throat Pain Respiratory: Yes: Shortness of Breath. No: Cough Cardiac (ROS): Yes: Chest Pain. No: Edema, Lightheadedness, Palpitations, Syncope ABD/GI: Yes: Diarrhea, Nausea, Rectal Bleeding, Vomiting. No: Constipated : No: Burning, Dysuria Musculoskeletal: Yes: Neck Pain (chronic), Other (muscle cramping). No: Back Pain Integumentary: No: Bruising, Rash Neurological: Yes: Headache, Numbness, Tingling, Tremors. No: Weakness Endocrine: No: Unexplained Weight Gain, Unexplained Weight Loss *Physical Exam - Vital Signs Last Vital Signs Temp Pulse Resp BP Pulse Ox 98 F 84 16 116/70 95 01/20/18 13:55 01/20/18 13:55 01/20/18 13:55 01/20/18 13:55 01/20/18 11:25 - Physical Exam General Appearance: Yes: Nourished, Other (mild distress, a bit pressured speech , appears a bit uncomfortable, tremulous, a bit diaphoretic, ) HEENT: positive: EOMI, CHRISTOPH, Normal Voice, Hearing Grossly Normal. negative: Scleral Icterus (R), Scleral Icterus (L), Nasal Congestion Neck: positive: Trachea midline, Supple. negative: Tender, Rigid Respiratory/Chest: positive: Lungs Clear, Normal Breath Sounds. negative: Respiratory Distress, Crackles, Rhonchi, Stridor, Wheezing Cardiovascular: positive: Regular Rhythm, Regular Rate, S1, S2. negative: Edema , JVD, Murmur Gastrointestinal/Abdominal: positive: Normal Bowel Sounds, Soft. negative: Tender, Organomegaly, Pulsatile Mass, Guarding Musculoskeletal: positive: Normal Inspection. negative: Decreased Range of Motion, Vertebral Tenderness Extremity: positive: Normal Capillary Refill, Normal Inspection, Normal Range of Motion. negative: Tender, Cyanosis Integumentary: positive: Normal Color, Dry, Warm. 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 negative: EOM Palsy, Facial Droop, Numbness, Sensory Deficit, Confused, Disoriented Heart Score/ECG Review - History History: Moderately suspicious - Electrocardiogram EKG: Normal - Age Age: 45-65 - Risk Factors Risk Factors Heart Score: Yes Hx Hypercholesterolemia, Yes Hx Hypertension, Yes Positive family hx of cardiac disease Based on the list above the patient has:: >/=3 risk factors or Hx atherosclerotic disease - Troponin Troponin: </= normal limit - Score Heart Score - Total: 4 #1 NSR, rate of 82, normal axis and intervals, no ischemic changes ED Treatment Course - LABORATORY CBC & Chemistry Diagram: 01/20/18 05:30 01/20/18 05:30 - ADDITIONAL ORDERS Additional order review: 01/19/18 01/19/18 16:15 16:00 RBC 4.50 MCV 86.9 MCHC 33.6 RDW 12.8 MPV 10.0 Neutrophils % 59.1 Lymphocytes % 24.2 Monocytes % 7.7 Eosinophils % 8.4 H Basophils % 0.6 POC Glucometer [phone] - RADIOLOGY Radiology Studies Ordered: Category Date Time Status CHEST X-RAY PORTABLE* [RAD] Stat Radiology 01/19/18 15:46 Completed - Medications Given in the ED: ED Medications Discontinued Medications Generic Name Dose Route Start Last Admin Trade Name Freq PRN Reason Stop Dose Admin Acetaminophen 1,000 mg 01/19/18 17:27 01/19/18 18:02 Ofirmev Injection - IVPB 01/19/18 17:28 1,000 mg ONCE ONE Administration Acetaminophen 650 mg 01/19/18 21:18 01/19/18 23:40 Tylenol - PO 650 mg Q6H PRN Administration HEADACHE Amitriptyline HCl 25 mg 01/19/18 22:00 01/19/18 23:00 Elavil - PO 25 mg HS JARROD Administration Amlodipine Besylate 5 mg 01/20/18 10:00 01/20/18 10:11 Norvasc - PO 5 mg DAILY JARROD Administration Apixaban 5 mg 01/19/18 22:00 01/20/18 10:11 Eliquis - PO 5 mg BID JARROD Administration Aspirin 324 mg 01/19/18 19:40 01/19/18 19:46 Asa - PO 01/19/18 19:41 324 mg ONCE ONE Administration Atorvastatin Calcium 20 mg 01/19/18 22:00 01/19/18 23:00 Lipitor - PO 20 mg HS JARROD Administration Ketorolac Tromethamine 15 mg 01/19/18 19:40 01/19/18 19:46 Toradol Injection - IVPUSH 01/19/18 19:41 15 mg ONCE ONE Administration Ondansetron HCl 4 mg 01/19/18 15:46 01/19/18 15:53 Zofran Injection IVPUSH 01/19/18 15:47 4 mg ONCE ONE Administration Pantoprazole Sodium 40 mg 01/20/18 10:00 01/20/18 10:11 Protonix - PO 40 mg DAILY JARROD Administration Potassium Chloride 40 meq 01/19/18 21:30 01/19/18 21:58 K-Dur - PO 01/19/18 21:31 40 meq ONCE ONE Administration Potassium Chloride 40 meq 01/20/18 14:15 01/20/18 14:39 K-Dur - PO 40 meq DAILY JARROD Administration Sodium Chloride 1,000 ml 01/19/18 15:46 01/19/18 15:53 Normal Saline - IV 01/19/18 15:47 1,000 ml ONCE ONE Administration Tamsulosin HCl 0.4 mg 01/20/18 08:30 01/20/18 09:30 Flomax - PO 0.4 mg DAILY@0830 [facility] Administration Medical Decision Making - Medical Decision Making 01/19/18 16:13 Adult male Pt p/w chest pain. Initial Vital Signs Temp Pulse Resp BP Pulse Ox 98.1 F 88 20 127/72 98 01/19/18 15:17 01/19/18 15:17 01/19/18 15:17 01/19/18 15:17 01/19/18 15:17 Exam: mild distress, a bit pressured speech, appears a bit uncomfortable, tremulous, a bit diaphoretic, normal heart and lung exams, normal abdominal exam , left forehead old scars, anterior inferior throat well-healed scar (patient states from procedure to help him breath). DDX IBNLT: ACS, pericarditis, tamponade, aortic dissection, AAA, PTX, PE, esophageal tear, esophagitis (e.g. pill, infectious), esophageal stricture, esophageal FB, gastritis, PUD, pancreatitis, cholecystitis, cholangitis, colitis , bowel perforation, PNA/bronchitis, pleurisy, pleuritis, MVP, pulmonary HTN, musculoskeletal, panic/anxiety, etc. W/U ordered: CBCD CMP Mg Phos Lipase Troponin CK CKMB Coags T&S Blood gas UA UCx EKG CXR. TX ordered: monitor, ASA 324, O2 via NC if needed EKG: As noted in ECG Review section. CXR: NADP Laboratory Tests 01/19/18 01/19/18 01/19/18 16:00 16:00 16:00 WBC 8.4 RBC 4.50 Hgb 13.1 Hct 39.1 MCV 86.9 MCH 29.2 MCHC 33.6 RDW 12.8 Plt Count 198 MPV 10.0 Absolute Neuts (auto) 5.0 Neutrophils % 59.1 Lymphocytes % 24.2 Monocytes % 7.7 Eosinophils % 8.4 H Basophils % 0.6 Nucleated RBC % 0 Sodium 141 Potassium 3.2 L Chloride 107 Carbon Dioxide 22 Anion Gap 12 BUN 22 H Creatinine 1.2 Creat Clearance w eGFR > 60 POC Glucometer Random Glucose 118 H Calcium 9.0 Phosphorus 2.4 L Magnesium 2.3 Total Bilirubin 0.5 AST 39 H D ALT 61 D Alkaline Phosphatase 92 Creatine Kinase 189 Creatine Kinase Index 0.8 CK-MB (CK-2) 1.64 Troponin I < 0.02 Total Protein 7.8 Albumin 4.1 Lipase 90 Urine Color Yellow Urine Appearance Clear Urine pH 5.0 Ur Specific Perry 1.018 Urine Protein Negative Urine Glucose (UA) Negative Urine Ketones Trace H Urine Blood Negative Urine Nitrite Negative Urine Bilirubin Negative Urine Urobilinogen Negative Ur Leukocyte Esterase Negative 01/19/18 16:15 WBC RBC Hgb Hct MCV MCH MCHC RDW Plt Count MPV Absolute Neuts (auto) Neutrophils % Lymphocytes % Monocytes % Eosinophils % Basophils % Nucleated RBC % Sodium Potassium Chloride Carbon Dioxide Anion Gap BUN Creatinine Creat Clearance w eGFR POC Glucometer [phone] Random Glucose Calcium Phosphorus Magnesium Total Bilirubin AST ALT Alkaline Phosphatase Creatine Kinase Creatine Kinase Index CK-MB (CK-2) Troponin I Total Protein Albumin Lipase Urine Color Urine Appearance Urine pH Ur Specific Perry Urine Protein Urine Glucose (UA) Urine Ketones Urine Blood Urine Nitrite Urine Bilirubin Urine Urobilinogen Ur Leukocyte Esterase Reassessment: Patient states improved, repeat exam benign. ADMIT Repeat cardiac enzymes ordered. HEART score indicated Pt is higher risk and should be managed in hospital with cardiology consult. The Pt is unsafe for discharge at this time. They require further hospital observation, workup, and treatment. Microblog sent to [facility] for admission. Spoke with [facility], in agreement Pt to be admitted to to: Telemetry Decision to Admit order placed to covering attending Consult order placed to cardiology on-call provider. *DC/Admit/Observation/Transfer Diagnosis at time of Disposition: Chest pain Qualifiers: Chest pain type: unspecified Qualified Code(s): R07.9 - Chest pain, unspecified Vomiting Qualifiers: Vomiting type: unspecified Vomiting Intractability: non-intractable Nausea presence: with nausea Qualified Code(s): R11.2 - Nausea with vomiting, unspecified Headache Qualifiers: Headache type: unspecified Headache chronicity pattern: unspecified pattern Intractability: not intractable Qualified Code(s): R51 - Headache - Discharge Dispostion Condition at time of disposition: Guarded Decision to Admit order: Yes - Referrals - Patient Instructions - Post Discharge Activity
[2018-01-19 16:11] LABS: BASO % 0.6 % (0-2.0); EOS % 8.4 % (0-4.5); HEMATOCRIT 39.1 % (35.4-49); HEMOGLOBIN 13.1 GM/dL (11.7-16.9); LYMPH % 24.2 % (8-40); MCH 29.2 pg (25.7-33.7); MCHC 33.6 g/dl (32.0-35.9); MEAN CELL VOLUME 86.9 fl (80-96); MONO % 7.7 % (3.8-10.2); NEUT % 59.1 % (42.8-82.8); PLATELET COUNT 198 K/MM3 (134-434); RDW 12.8 % (11.9-15.9); WHITE BLOOD COUNT 8.4 K/mm3 (4.0-10.0)
[2018-01-19 16:32] LABS: ALBUMIN 4.1 g/dl (3.4-5.0); ANION GAP 12 (8-16); BILIRUBIN,TOTAL 0.5 mg/dL (0.2-1.0); BLOOD UREA NITROGEN 22 mg/dL (7-18); CHLORIDE 107 mmol/L (98-107); CO2 22 mmol/L (21-32); CREATININE 1.2 mg/dL (0.7-1.3); GLUCOSE,RANDOM 118 mg/dL (74-106); LIPASE 90 U/L (73-393); MAGNESIUM 2.3 mg/dL (1.8-2.4); PHOSPHOROUS 2.4 mg/dL (2.5-4.9); POTASSIUM 3.2 mmol/L (3.5-5.1); SGOT/AST 39 U/L (15-37); SGPT/ALT 61 U/L (12-78); SODIUM 141 mmol/L (136-145); TOT PROT 7.8 g/dl (6.4-8.2)
[2018-01-19 16:33] LABS: ALK PHOS 92 U/L (45-117)
[2018-01-19 16:34] LABS: URINE APPEARANCE CLEAR; URINE BILIRUBIN NEGATIVE (<2.0 mg/dL); URINE COLOR YELLOW; URINE GLUCOSE (UA) NEGATIVE (NEGATIVE); URINE KETONE TRACE (NEGATIVE); URINE LEUK ESTERASE NEGATIVE (NEGATIVE); URINE NITRITE NEGATIVE (NEGATIVE); URINE PROTEIN NEGATIVE (NEGATIVE); URINE UROBILINOGEN NEGATIVE mg/dL (0.2-1.0)
[2018-01-19] MEDS ORDERED: ACETAMINOPHEN 1000 MG/100 ML VIAL (NON FORMULARY) IVPB ONE (17:27)
[2018-01-19] MEDS ORDERED: ACETAMINOPHEN INJECTION 100 ML IVPB ONE (17:57)
[2018-01-19] MEDS ORDERED: ASPIRIN 81 MG CHEWABLE TABLETS PO ONE (19:40)
[2018-01-19] MEDS ORDERED: KETOROLAC TROMETHAMINE 15 MG/ML VIAL IVPUSH ONE (19:40)
[2018-01-19] MEDS ORDERED: ASPIRIN 325 MG TABLET ONE (19:50)
[2018-01-19] MEDS ORDERED: KETOROLAC TROMETHAMINE 15 MG/ML VIAL ONE (19:51)
--- NOTE | 2018-01-19 20:20 | PN ---
Teaching Attending Note Name of Resident: Carol Mcgrath ATTENDING PHYSICIAN STATEMENT I saw and evaluated the patient. I reviewed the resident's note and discussed the case with the resident. I agree with the resident's findings and plan as documented. SUBJECTIVE: Patient is a 57 year old man with h/o HTN, HLD, CAD s/p stents x3, CVA (in 1993 without deficits), A-fib on Eliquis, MICHELLE on CPAP, cardiomegaly, GERD, hiatal hernia, kidney stones, RHIANNA, BPH, and depression on amitryptiline, who p/w chest pain, diffuse bodily cramping/numbness/tingling, tremors, headache, nausea, vomiting, and diarrhea. He notes that the symptoms began with diarrhea with blood three days ago. This morning he had the onset of frontal headache, and thoughout the day he became more and more nauseated. About one hour prior to arrival in the ED he had an onset of 10/10 left-sided chest pain radiating to the entire front of the chest but not to the back, and just after arriving in the ED he had one episode of vomiting. He has had similar headache and chest pain in the past. OBJECTIVE: Alert and apprehensive Vital Signs Period Temp Pulse Resp BP Sys/Harper Pulse Ox Last 24 Hr 98.1 F 88 20 127/72 98 HEENT: No Jaundice, eye redness or discharge, PERRLA, EOMI. Normocephalic, atraumatic. External ears are normal and hearing is grossly intact. No nasal discharge. Neck: Supple, nontender. No palpable adenopathy or thyromegaly. No JVD Chest: Good effort. Clear to auscultation and percussion. Heart: Regular. No S3, rub or murmur Abdomen: Not distended, soft, nontender and no HSM. No rebound or guarding. Normoactive bowel sounds. Ext: Peripheral pulses intact. No leg edema. Skin: Warm and dry. No petechiae, rash or ecchymosis. Neuro: Alert. Oriented x3. CN 2-12 grossly intact. Sensation grossly intact in all four extremities and DTR are symmetric. Current Medications Generic Name Dose Route Start Last Admin Trade Name Freq PRN Reason Stop Dose Admin Acetaminophen 650 mg 01/19/18 21:18 Tylenol - PO Q6H PRN HEADACHE Heparin Sodium (Porcine) 5,000 unit 01/20/18 06:00 Heparin - SQ TID JARROD Ondansetron HCl 4 mg 01/19/18 21:23 Zofran Injection IVPUSH Q6H PRN NAUSEA Home Medications Medication Instructions Recorded Alfuzosin HCl [Uroxatral] 10 mg PO DAILY 12/01/16 Amlodipine Besylate [Norvasc -] 5 mg PO DAILY #30 tablet 12/16/17 Apixaban [Eliquis -] 5 mg PO BID tablet 12/16/17 Atorvastatin Ca [Lipitor] 20 mg PO HS 12/16/17 Chlorthalidone 25 mg PO DAILY 12/16/17 Fluticasone Prop 0.05% Nasal 1 - 2 spray NS BID 12/16/17 [Flonase -] Olmesartan Medoxomil [Benicar -] 40 mg PO DAILY 12/16/17 Pantoprazole Sodium [Protonix -] 40 mg PO DAILY #30 tablet.ec 12/16/17 ASSESSMENT AND PLAN: 1. Chest pain - Pain is atypical, but he has risk factors so will admit to telemetry to rule out ACS. Initial troponin is negative and no changes on EKG. Will get ECHO and cardiology consult. 2. Headache and vomiting - Etiology unclear, but will get head CT. 3. Bloody diarrhea - Has history of external hemorrhoids. Will send stool for C. diff toxin and conslt GI 4. Hypokalemia - may suggest that his diarrhea was intense. Will give oral KCL. 5. Hypophosphatemia - Treat with neutraphos. 6. Afib - Rate controlled and on Eliquis. 7. Eosinophilia - Chronic issue. Unclear if he has ever been worked up for parasitic infection. 8. DVT prophylaxis - On Eliquis 9. Advance directives - Full code
--- NOTE | 2018-01-19 20:47 | PDOC ---
Attending Attestation - Resident Resident Name: Bailee Grewal - ED Attending Attestation I have performed the following: I have examined & evaluated the patient, The case was reviewed & discussed with the resident, I agree w/resident's findings & plan, Exceptions are as noted - HPI HPI: 01/19/18 20:46 57 yo male p/w nausea,vomitng,diarrhea,chest pain and headache - Physicial Exam PE: 01/19/18 20:[address] Grewal - Medical Decision Making 01/19/18 20:47 pt to be admitted to tele OBS
[2018-01-19] MEDS ORDERED: ACETAMINOPHEN 325 MG TABLET (FP) PO PRN (21:18)
[2018-01-19] MEDS ORDERED: ONDANSETRON 4 MG/2 ML VIAL IVPUSH PRN (21:23)
[2018-01-19] MEDS ORDERED: POTASSIUM CHLORIDE TABS 20 MEQ TABLET.ER (FP) PO ONE ×2 (21:30→21:44)
--- NOTE | 2018-01-19 21:51 | HP ---
CHIEF COMPLAINT: headache, chest pain PCP: Dr Abbasi HISTORY OF PRESENT ILLNESS: The patient is a 57 year old Algerian speaking male with a PMH of HTN, Hyperlipidemia, CAD, s/p 3 stents, CVA (94' without deficits), A.Fib, on Eliquis , MICHELLE on CPAP, cardiomegaly, that presented to the hospital complaining of frontal headache that started last night, 5/10 in severity, associated with chills and leg cramps. This morning he also woke up with intermittent chest pain , 7/10, localized on left side of his chest, no radiation, no alleviating/ aggravating factors, associated with nausea and one episode of NBNB vomiting in Emergency Room. The patient also endorses diarrhea with bright red blood for 3 days. When i saw the patient, his headache resolved and chest pain improved to 4 /10 in severity. He denies changing his diet, loss of appetite, fever, chills, sick contacts, recent travel. He also denies lightheadedness, palpitations, SOB , dizziness, balance problems, weakness, numbness. The patient denies abdominal pain, dysuria. He is compliant with his home medications but doesn't have the list with him. He was discharged from [facility] month ago for r/o stroke, treated for radiculopathy. I used [employer] [id number]. ER course was notable for: (1)EKG (2)troponin neg (3)cxr nl Recent Travel:no PAST MEDICAL HISTORY: as above and nephrolithiasis, GERD, BPH, depression, vertigo PAST SURGICAL HISTORY: right hiatal hernia, cardiac catheterization, lithotripsy Social History: Smoking:denies Alcohol:denies Drugs: denies he works in [employer], lifting heavy objects. Lives with family. Family History: Parents: healthy, alive, siblings and 5 children healthy. Allergies camphor [From Vicks Vaporub] Allergy (Verified 01/19/18 15:17) eucalyptus [From Vicks Vaporub] Allergy (Verified 01/19/18 15:17) eucalyptus oil [From Vicks Vaporub] Allergy (Verified 01/19/18 15:17) menthol [From Vicks Vaporub] Allergy (Verified 01/19/18 15:17) turpentine oil [From Vicks Vaporub] Allergy (Verified 01/19/18 15:17) HOME MEDICATIONS: Home Medications Medication Instructions Recorded Alfuzosin HCl [Uroxatral] 10 mg PO DAILY 12/01/16 Amlodipine Besylate [Norvasc -] 5 mg PO DAILY #30 tablet 12/16/17 Apixaban [Eliquis -] 5 mg PO BID tablet 12/16/17 Atorvastatin Ca [Lipitor] 20 mg PO HS 12/16/17 Chlorthalidone 25 mg PO DAILY 12/16/17 Fluticasone Prop 0.05% Nasal 1 - 2 spray NS BID 12/16/17 [Flonase -] Olmesartan Medoxomil [Benicar -] 40 mg PO DAILY 12/16/17 Pantoprazole Sodium [Protonix -] 40 mg PO DAILY #30 tablet.ec 12/16/17 REVIEW OF SYSTEMS CONSTITUTIONAL: Absent: fever, chills, diaphoresis, generalized weakness, malaise, loss of appetite, weight change HEENT: Absent: rhinorrhea, nasal congestion, throat pain, throat swelling, difficulty swallowing, mouth swelling, visual changes CARDIOVASCULAR: chest pain, Absent: syncope, palpitations, irregular heart rate, lightheadedness, peripheral edema RESPIRATORY: Absent: cough, shortness of breath, dyspnea with exertion, orthopnea, wheezing, stridor, hemoptysis GASTROINTESTINAL:nausea, Absent: abdominal pain, abdominal distension, vomiting, diarrhea, constipation, melena, hematochezia GENITOURINARY: Absent: dysuria, frequency, urgency, hesitancy, hematuria, flank pain, genital pain MUSCULOSKELETAL: Absent: myalgia, arthralgia, joint swelling, back pain, neck pain SKIN: Absent: rash, itching HEMATOLOGIC/IMMUNOLOGIC: Absent: easy bleeding, easy bruising, lymphadenopathy, frequent infections ENDOCRINE: Absent: unexplained weight gain, unexplained weight loss, heat intolerance, cold intolerance NEUROLOGIC: Absent: headache, focal weakness or paresthesias, dizziness, unsteady gait, seizure PSYCHIATRIC: Absent: anxiety, depression PHYSICAL EXAMINATION Vital Signs - 24 hr 01/19/18 15:17 Temperature 98.1 F Pulse Rate 88 Respiratory 20 Rate Blood Pressure 127/72 O2 Sat by Pulse 98 Oximetry (%) GENERAL: Awake, alert, and fully oriented, in no acute distress. HEAD: Normal with no signs of trauma. EYES: Pupils equal, round and reactive to light, extraocular movements intact, sclera anicteric, conjunctiva clear. EARS, NOSE, THROAT: Ears normal, nares patent, oropharynx clear without exudates. Moist mucous membranes. NECK: Normal range of motion, supple without lymphadenopathy, JVD, or masses. LUNGS: Breath sounds equal, clear to auscultation bilaterally. No wheezes, and no crackles. No accessory muscle use. HEART: Regular rate and rhythm, normal S1 and S2 without murmur, rub or gallop. ABDOMEN: Soft, nontender, not distended, normoactive bowel sounds, no guarding, no rebound, no masses. MUSCULOSKELETAL: Normal range of motion at all joints. No bony deformities or tenderness. UPPER EXTREMITIES: No peripheral edema. LOWER EXTREMITIES: 2+ pulses, no peripheral edema. NEUROLOGICAL: No facial asymmetry, no slurred speech, gait not observed. PSYCHIATRIC: Cooperative. Good eye contact. Appropriate mood and affect. SKIN: Warm, dry, normal turgor, no rashes or lesions noted, normal capillary refill. Laboratory Results - last 24 hr 01/19/18 01/19/18 01/19/18 16:00 16:00 16:00 WBC 8.4 RBC 4.50 Hgb 13.1 Hct 39.1 MCV 86.9 MCH 29.2 MCHC 33.6 RDW 12.8 Plt Count 198 MPV 10.0 Absolute Neuts (auto) 5.0 Neutrophils % 59.1 Lymphocytes % 24.2 Monocytes % 7.7 Eosinophils % 8.4 H Basophils % 0.6 Nucleated RBC % 0 Sodium 141 Potassium 3.2 L Chloride 107 Carbon Dioxide 22 Anion Gap 12 BUN 22 H Creatinine 1.2 Creat Clearance w eGFR > 60 POC Glucometer Random Glucose 118 H Calcium 9.0 Phosphorus 2.4 L Magnesium 2.3 Total Bilirubin 0.5 AST 39 H D ALT 61 D Alkaline Phosphatase 92 Creatine Kinase 189 Creatine Kinase Index 0.8 CK-MB (CK-2) 1.64 Troponin I < 0.02 Total Protein 7.8 Albumin 4.1 Lipase 90 Urine Color Yellow Urine Appearance Clear Urine pH 5.0 Ur Specific Oil Trough 1.018 Urine Protein Negative Urine Glucose (UA) Negative Urine Ketones Trace H Urine Blood Negative Urine Nitrite Negative Urine Bilirubin Negative Urine Urobilinogen Negative Ur Leukocyte Esterase Negative 01/19/18 16:15 WBC RBC Hgb Hct MCV MCH MCHC RDW Plt Count MPV Absolute Neuts (auto) Neutrophils % Lymphocytes % Monocytes % Eosinophils % Basophils % Nucleated RBC % Sodium Potassium Chloride Carbon Dioxide Anion Gap BUN Creatinine Creat Clearance w eGFR POC Glucometer [id number] Random Glucose Calcium Phosphorus Magnesium Total Bilirubin AST ALT Alkaline Phosphatase Creatine Kinase Creatine Kinase Index CK-MB (CK-2) Troponin I Total Protein Albumin Lipase Urine Color Urine Appearance Urine pH Ur Specific Oil Trough Urine Protein Urine Glucose (UA) Urine Ketones Urine Blood Urine Nitrite Urine Bilirubin Urine Urobilinogen Ur Leukocyte Esterase ASSESSMENT/PLAN: The patient is a 57 year old Algerian speaking male with a PMH of HTN, Hyperlipidemia, CAD, s/p 3 stents, CVA without deficits, A.Fib, on Eliquis, MICHELLE on CPAP, cardiomegaly, that presented to the hospital complaining chest pain and headache that started overnight. He is admitted for r/o ACS. R/O ACS -the patient is complaining of chest pain that is ;localized to left side of his chest, HEART score 4- (moderately suspicious history, normal ekg, age 57, 3 risk factors for atherosclerotic disease, negative troponin) -will trend troponins and EKG -ECHO recently done in november 2017 -given ASA 324 -cardiac monitoring on telemetry -cardiology consulted Headache: -resolved, but related to nausea, may indicate increased intracranial pressure -will obtain Ct head -continue Tylenol 650 mg Q6H Diarrhea: -possibly related to food, but need to r/o infectious -the patient reports blood -FOBT ordered -stool studies ordered Hypokalemia: -3.2, will KCL 40 PO now -f/u CMP in AM HTN: -continue Norvasc 5 mg daily Hyperlipidemia: -continue Lipitor 40 mg A.Fib: -continue Eliquis 5 mg daily -EKG NSR, no beth/std History of depression: -cont Amitryptiline 25 mg HS BPH: -cont Flomax 0/.4 mg daily MICHELLE: -will continue CPAP at night DVT PPX: -Eliquis 5 BID F/E/N: no/K 3.2/Low Na Dispo: telemetry obs Please confirm medications in the morning. The patient family will bring the list. Problem List - Problem (1) Chest pain Code(s): R07.9 - CHEST PAIN, UNSPECIFIED Qualifiers: Chest pain type: unspecified Qualified Code(s): R07.9 - Chest pain, unspecified (2) Headache Code(s): R51 - HEADACHE Qualifiers: Headache type: unspecified Headache chronicity pattern: unspecified pattern Intractability: not intractable Qualified Code(s): R51 - Headache (3) Vomiting Code(s): R11.10 - VOMITING, UNSPECIFIED Qualifiers: Vomiting type: unspecified Vomiting Intractability: non-intractable Nausea presence: with nausea Qualified Code(s): R11.2 - Nausea with vomiting, unspecified (4) Cervical radiculopathy Code(s): M54.12 - RADICULOPATHY, CERVICAL REGION (5) Hypertension Code(s): I10 - ESSENTIAL (PRIMARY) HYPERTENSION Visit type - Emergency Visit Emergency Visit: Yes ED Registration Date: 01/19/18 Care time: The patient presented to the Emergency Department on the above date and was hospitalized for further evaluation of their emergent condition. - New Patient This patient is new to me today: Yes Date on this admission: 01/20/18 - Critical Care Critical Care patient: No Hospitalist Screening - Colonoscopy Questionnaire Colonoscopy Questionnaire: Colonoscopy Questionnaire - Patient: 50 - 75 years old and never had a screening colonoscopy: Unknown History of colon or rectal polyps, or CA: Unknown History of IBD, Crohn's disease or UC: Unknown History of abdominal radiation therapy as a child: Unknown - Relative: 1 with colon or rectal CA, or polyps at age 60 or younger: Unknown Colon or rectal CA diagnosed at age 45 or younger: Unknown Multiple relatives with colon or rectal CA: Unknown - Outcome: Screening Result: Negative Screen
[2018-01-19] MEDS ORDERED: ATORVASTATIN CA 20 MG TABLET (FP) PO SCH (22:00)
[2018-01-19] MEDS ORDERED: AMITRIPTYLINE HCL 25 MG TABLET (FP) PO SCH (22:00)
[2018-01-19] MEDS: APIXABAN 5 MG TABLET PO SCH (23:00)
[2018-01-20] MEDS ORDERED: HEPARIN NA (PORCINE) 5,000 UNITS/ML 1ML VIAL SQ SCH (06:00)
[2018-01-20 06:20] LABS: BASO % 0.5 % (0-2.0); EOS % 10.7 % (0-4.5); HEMATOCRIT 34.9 % (35.4-49); HEMOGLOBIN 11.9 GM/dL (11.7-16.9); LYMPH % 26.8 % (8-40); MCH 29.6 pg (25.7-33.7); MCHC 34.1 g/dl (32.0-35.9); MEAN CELL VOLUME 86.7 fl (80-96); MONO % 7.7 % (3.8-10.2); NEUT % 54.3 % (42.8-82.8); PLATELET COUNT 165 K/MM3 (134-434); RBC 4.03 M/mm3 (4.00-5.60); RDW 12.5 % (11.9-15.9); WHITE BLOOD COUNT 6.9 K/mm3 (4.0-10.0)
[2018-01-20 06:50] LABS: ALBUMIN 3.3 g/dl (3.4-5.0); ANION GAP 7 (8-16); BLOOD UREA NITROGEN 17 mg/dL (7-18); CALCIUM 7.9 mg/dL (8.5-10.1); CHLORIDE 108 mmol/L (98-107); CO2 26 mmol/L (21-32); GLUCOSE,RANDOM 91 mg/dL (74-106); MAGNESIUM 2.1 mg/dL (1.8-2.4); POTASSIUM 3.3 mmol/L (3.5-5.1); SODIUM 141 mmol/L (136-145)
[2018-01-20 06:55] LABS: ALK PHOS 80 U/L (45-117); BILIRUBIN,TOTAL 0.6 mg/dL (0.2-1.0); CREATININE 1.1 mg/dL (0.7-1.3); PHOSPHOROUS 2.6 mg/dL (2.5-4.9); SGOT/AST 35 U/L (15-37); SGPT/ALT 51 U/L (12-78); TOT PROT 6.5 g/dl (6.4-8.2)
[2018-01-20] MEDS ORDERED: TAMSULOSIN HCL 0.4 MG CAP.ER.24H (FP) PO SCH (08:30)
[2018-01-20] MEDS ORDERED: amLODIPine BESYLATE 5 MG TABLET (FP) PO SCH (10:00)
[2018-01-20] MEDS ORDERED: PANTOPRAZOLE 40 MG TABLET (FP) PO SCH (10:00)
[2018-01-20] MEDS: APIXABAN 5 MG TABLET PO SCH (10:11)
--- NOTE | 2018-01-20 10:24 | CON.CARD ---
Consult Consult Specialty:: Cardiology for [facility] Referred by:: Hospitalist Medicine Reason for Consultation:: Chest pain - History of Present Illness Chief Complaint: Chest pain History of Present Illness: 57 yo with HTN, HPL, known to Dr Calles for chronic chest pain syndrome with non- obstructive CAD, OSAS on cpap, hiatal hernia, known PAF with CHADs-Vasc2 = 1 on Apixaban now admitted with atypical chest pain, diffuse bodily cramping/numbness /tingling, tremors, frontal headache, nausea, vomiting, diarrhea similar to previous episodes, since last night , reports resolution of symptoms, ruled out for NV, no events on telemetry. 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: CVA (no residual deficits) Cardio/Vascular: Yes: AFIB, CAD, HTN, Other (cardiomyopathy) - Alcohol/Substance Use Hx Alcohol Use: Yes - Smoking History Smoking history: Never smoked Have you smoked in the past 12 months: No Aproximately how many cigarettes per day: 0 Home Medications - Allergies Allergies/Adverse Reactions: Allergies Allergy/AdvReac Type Severity Reaction Status Date / Time camphor [From Vicks Vaporub] Allergy Verified 01/19/18 15:17 eucalyptus Allergy Verified 01/19/18 15:17 [From Vicks Vaporub] eucalyptus oil Allergy Verified 01/19/18 15:17 [From Vicks Vaporub] menthol [From Vicks Vaporub] Allergy Verified 01/19/18 15:17 turpentine oil Allergy Verified 01/19/18 15:17 [From Vicks Vaporub] - Home Medications Home Medications: Ambulatory Orders Alfuzosin HCl [Uroxatral] 10 mg PO DAILY 12/01/16 Amlodipine Besylate [Norvasc -] 5 mg PO DAILY #30 tablet 12/16/17 Apixaban [Eliquis -] 5 mg PO BID tablet 12/16/17 Atorvastatin Ca [Lipitor] 20 mg PO HS 12/16/17 Chlorthalidone 25 mg PO DAILY 12/16/17 Fluticasone Prop 0.05% Nasal [Flonase -] 1 - 2 spray NS BID 12/16/17 Olmesartan Medoxomil [Benicar -] 40 mg PO DAILY 12/16/17 Pantoprazole Sodium [Protonix -] 40 mg PO DAILY #30 tablet.ec 12/16/17 Review of Systems - Review of Systems Cardiovascular: reports: Chest Pain Gastrointestinal: reports: Diarrhea, Nausea, Vomiting Vital Signs: Vital Signs Temperature 97.8 F 01/20/18 08:01 Pulse Rate 62 01/20/18 08:01 Respiratory Rate 15 01/20/18 08:01 Blood Pressure 107/69 01/20/18 08:01 O2 Sat by Pulse Oximetry (%) 99 01/20/18 06:00 Constitutional: Yes: No Distress, Calm Neck: Yes: Supple Respiratory: Yes: Regular, Diminished, On BiPap Gastrointestinal: Yes: Soft, Hypoactive Bowel Sounds Cardiovascular: Yes: Regular Rate and Rhythm JVD: No Carotid Bruit: No Heart Sounds: Yes: S1, S2 Murmur: Yes: Systolic Murmur, Grade 1 Edema: No - Other Data Labs, Other Data: CBC, BMP 01/20/18 05:30 01/20/18 05:30 Troponin, BNP 01/19/18 01/19/18 01/20/18 16:00 23:00 05:30 Troponin I < 0.02 < 0.02 < 0.02 01/20/18 05:30 Troponin I Cancelled Troponin, BNP 01/19/18 01/19/18 01/20/18 16:00 23:00 05:30 Troponin I < 0.02 < 0.02 < 0.02 01/20/18 05:30 Troponin I Cancelled NSR @ 82 w/o ST-T changes Tele: No events Echo: Report Reviewed Prior Cardiac Procedures: Cardiac Catheterization Ejection Fraction %: LVEF > or = 40 % Imaging - Results Chest X-ray: Report Reviewed (NAD) Cat Scan: Report Reviewed (No acute events) Problem List - Problems (1) Hyperlipidemia Code(s): E78.5 - HYPERLIPIDEMIA, UNSPECIFIED Qualifiers: Hyperlipidemia type: pure hypercholesterolemia Qualified Code(s): E78.00 - Pure hypercholesterolemia, unspecified; E78.0 - Pure hypercholesterolemia (2) Paroxysmal atrial fibrillation Code(s): I48.0 - PAROXYSMAL ATRIAL FIBRILLATION (3) Obstructive sleep apnea on CPAP Code(s): G47.33 - OBSTRUCTIVE SLEEP APNEA (ADULT) (PEDIATRIC); Z99.89 - DEPENDENCE ON OTHER ENABLING MACHINES AND DEVICES (4) Chest pain Code(s): R07.9 - CHEST PAIN, UNSPECIFIED Qualifiers: Chest pain type: unspecified Qualified Code(s): R07.9 - Chest pain, unspecified (5) Cervical radiculopathy Code(s): M54.12 - RADICULOPATHY, CERVICAL REGION (6) Hypertension Code(s): I10 - ESSENTIAL (PRIMARY) HYPERTENSION Qualifiers: Hypertension type: essential hypertension Qualified Code(s): I10 - Essential (primary) hypertension Assessment/Plan 57 yo male with HTN, HPL PAF on apixaban now admitted with atypical chest pain and total body aches 1) Atypical chest pain, ruled out for NV 2) PAF -According to Dr. Calles prior note, patient had prior episode of AF (Seen on ECG in 2012) in the past and was placed on NOAC for CHADs-Vasc2 = 1. -Tele without PAF thus far -Would continue Apixaban 5 bid -F/u echo results from November 2017, d/c current order for repeat study 2) HTN -Well controlled -continue amlodipine 5 qd, Benicar 40 qd, Chlorthalidone 25 qd, replete K 3) Hyperlipidemia -continue Lipitor 20 qhs 4) Chest pain -Chronic issue with non-obstructive CAD on cath according to prior notes -Continue to monitor 5) OSAS on cpap 6) D/c planning with f/u with Dr. Calles in office
--- NOTE | 2018-01-20 12:33 | EKG ---
Test Reason : Blood Pressure : / mmHG Vent. Rate : 082 BPM Atrial Rate : 082 BPM P-R Int : 140 ms QRS Dur : 116 ms QT Int : 388 ms P-R-T Axes : 062 039 038 degrees QTc Int : 453 ms NORMAL SINUS RHYTHM NORMAL ECG WHEN COMPARED WITH ECG OF 13-DEC-2017 18:24, NO SIGNIFICANT CHANGE WAS FOUND Confirmed by AARON LALA MD ([id number]) on 01/20/2018 12:32:39 PM Referred By: Confirmed By:AARON LALA MD
[2018-01-20 13:56] VITALS: BP 116/70; PULSE 84; TEMP 98
[2018-01-20] MEDS ORDERED: POTASSIUM CHLORIDE TABS 20 MEQ TABLET.ER (FP) PO SCH (14:15)
== END 2018-01-20 14:57 | disposition home or self-care (01) ==
LOC: JER 15:09 → JERBED 19:42 → J4W 23:56
PROVIDERS: ADMIT Internal Medicine; ATTEND Nurse Practitioner Acute Care
PROC: 3E033GC Introduction of Other Therapeutic Substance into Peripheral Vein, Percutaneous Approach (ICD-10-PCS; principal; 2018-01-19)
PROC: 3E033NZ Introduction of Analgesics, Hypnotics, Sedatives into Peripheral Vein, Percutaneous Approach (ICD-10-PCS; 2018-01-19)
PROC: 3E0337Z Introduction of Electrolytic and Water Balance Substance into Peripheral Vein, Percutaneous Approach (ICD-10-PCS; 2018-01-19)
DX: R07.9 Chest pain, unspecified (principal); R11.2 Nausea with vomiting, unspecified; R51 Headache; R19.5 Other fecal abnormalities; I10 Essential (primary) hypertension; I48.0 Paroxysmal atrial fibrillation; I25.2 Old myocardial infarction; I51.7 Cardiomegaly; E87.6 Hypokalemia; E83.39 Other disorders of phosphorus metabolism; D72.1 Eosinophilia; E78.5 Hyperlipidemia, unspecified; G47.33 Obstructive sleep apnea (adult) (pediatric); K21.9 Gastro-esophageal reflux disease without esophagitis; K44.9 Diaphragmatic hernia without obstruction or gangrene; N40.0 Benign prostatic hyperplasia without lower urinary tract symptoms; F32.9 Major depressive disorder, single episode, unspecified; M54.12 Radiculopathy, cervical region; Z87.442 Personal history of urinary calculi; Z99.89 Dependence on other enabling machines and devices; Z79.01 Long term (current) use of anticoagulants; Z86.73 Personal history of transient ischemic attack (TIA), and cerebral infarction without residual deficits; Z95.5 Presence of coronary angioplasty implant and graft; Z88.8 Allergy status to other drugs, medicaments and biological substances
CPT/HCPCS: 36415; 70450-TC; 71045-TC-FY; 80053; 81003; 82550; 82553; 82962; 83690; 83735; 84100; 84484; 85025; 87086; 93005; 93010; 94660; 96374; 96375; 99284-25; G0378; J0131

== ENCOUNTER 2018-12-26 15:35 | Observation (INO) | payer OTHER ==
[2018-12-26 15:40] VITALS: BMI 30.1
--- NOTE | 2018-12-26 15:44 | PDOC ---
Rapid Medical Evaluation Chief Complaint: Chest Pain Time Seen by Provider: 12/26/18 15:41 Medical Evaluation: Allergies Allergy/AdvReac Type Severity Reaction Status Date / Time camphor [From Vicks Vaporub] Allergy Verified 12/26/18 15:40 eucalyptus Allergy Verified 12/26/18 15:40 [From Vicks Vaporub] eucalyptus oil Allergy Verified 12/26/18 15:40 [From Vicks Vaporub] menthol [From Vicks Vaporub] Allergy Verified 12/26/18 15:40 turpentine oil Allergy Verified 12/26/18 15:40 [From Vicks Vaporub] Vital Signs Temp Pulse Resp BP Pulse Ox 98.5 F 86 18 119/62 97 12/26/18 15:37 12/26/18 15:37 12/26/18 15:37 12/26/18 15:37 12/26/18 15:37 12/26/18 15:43 Pt c/o: mid sternal pressure since last week but worse today, mild sob Pt on brief exam: lcta, vss, non reproducible CP Pt ordered for: ekg, cxr, cardiac w/u Pt to proceed to the ED Discharge Disposition - Diagnosis Chest pain - Referrals - Patient Instructions - Post Discharge Activity
--- NOTE | 2018-12-26 16:34 | PDOC ---
History of Present Illness <Zoe Sharp - Last Filed: 12/26/18 19:27> - History of Present Illness Initial Comments: Randall Pina is a 58yo man with a PMH of HTN, HLD, CAD s/p stents x3, CVA (1993 , ), a-fib on Eliquis, MICHELLE s/p nasal surgery and tonsillectomy, cardiomegaly, GERD, hiatal hernia, kidney stones, RHIANNA, BPH, and depression who presents with intermittent sternal chest pain. He states that the pain is sharp , constant, and nonradiating. It worsens with deep breaths. He says that he has had the pain for "a long time" and his PMD is aware of it. Previously, he used to use his CPAP at home, which relieved the pain. However, since his tonsillectomy he no longer has a CPAP at home for the past 8-9 months. Over the past few days, the pain has been present constantly. He felt that it would take too long to get an appointment with his doctor so presented to the ED. Mr Pina states that his current pain is similar to pain he has had in the past. It worsens only with breathing but not with exertion or movement. He denies any associated symptoms including fever/chills, cough, sweating, SOB, recent nausea/vomiting, congestion, sick contacts, or lightheadedness. He does note that he has frequent heartburn and has not taken any acid medications for "a long time" as he stopped following up with GI. <Raquel Freitas - Last Filed: 12/26/18 20:17> - General Chief Complaint: Chest Pain Stated Complaint: CHEST PAIN Time Seen by Provider: 12/26/18 15:41 Past History <Zoe Sharp - Last Filed: 12/26/18 19:27> - Past Medical History Anemia: No Asthma: No Cancer: No Cardiac Disorders: Yes (1 GA, 3 CATHS, CARDIOMEGALY) CVA: No COPD: No CHF: No Dementia: No Diabetes: No GI Disorders: Yes (ABD. PAIN, GALLSTONES) Disorders: No HTN: Yes Hypercholesterolemia: Yes Liver Disease: Yes (ELEVATED ENZYMES, STILL DRINKS ETOH A FEW X PER WEEK) Seizures: No Thyroid Disease: No - Surgical History Abdominal Surgery: Yes (RIGHT INGUINAL HERNIA REPAIR) Appendectomy: No Cardiac Surgery: Yes (CARDIAC CATHETERIZATION) Cholecystectomy: No Lung Surgery: No Neurologic Surgery: No Orthopedic Surgery: No - Immunization History Immunization Up to Date: Yes - Suicide/Smoking/Psychosocial Hx Smoking Status: No Smoking History: Never smoked Have you smoked in the past 12 months: No Number of Cigarettes Smoked Daily: 0 Hx Alcohol Use: Yes Drug/Substance Use Hx: No Substance Use Type: None Hx Substance Use Treatment: No <Raquel Freitas - Last Filed: 12/26/18 20:17> - Past Medical History Allergies/Adverse Reactions: Allergies Allergy/AdvReac Type Severity Reaction Status Date / Time camphor [From Vicks Vaporub] Allergy Verified 12/26/18 15:40 eucalyptus Allergy Verified 12/26/18 15:40 [From Vicks Vaporub] eucalyptus oil Allergy Verified 12/26/18 15:40 [From Vicks Vaporub] menthol [From Vicks Vaporub] Allergy Verified 12/26/18 15:40 turpentine oil Allergy Verified 12/26/18 15:40 [From Vicks Vaporub] Home Medications: Ambulatory Orders Alfuzosin HCl [Uroxatral] 10 mg PO DAILY 12/01/16 Apixaban [Eliquis -] 5 mg PO BID tablet 12/16/17 Chlorthalidone 25 mg PO DAILY 12/16/17 Gabapentin 300 mg PO DAILY 12/26/18 Labetalol HCl [Normodyne -] 200 mg PO DAILY 12/26/18 Telmisartan 80 mg PO DAILY 12/26/18 Review of Systems - Review of Systems Comments:: General: No fevers, no chills, no weight or appetite change, no malaise HEENT: No changes in vision, no changes in hearing, no congestion, no sore throat CV: +chest pain, no palpitations, no LE edema Pulm: No SOB, no cough, no wheezing, +pleuritic pain GI: +occasional nausea, no vomiting, no change in bowel habits, no melena : No frequency, no urgency, no dysuria Musc: No back pain, no joint swelling, no recent injury Skin: No rash, no lesions, no erythema Endo: No excessive thirst, no heat/cold intolerance Heme: No unusual bruising or bleeding, no swollen glands Neuro: No syncope, no numbness/tingling, no focal weakness Vasc: No claudication Psych: No recent change in mood, no SI or HI <Raquel Freitas - Last Filed: 12/26/18 20:17> *Physical Exam - Vital Signs Last Vital Signs Temp Pulse Resp BP Pulse Ox 98.5 F 92 H 18 92/55 L 97 12/26/18 15:37 12/26/18 16:41 12/26/18 16:41 12/26/18 16:41 12/26/18 16:41 <Zoe Sharp - Last Filed: 12/26/18 19:27> - Vital Signs Last Vital Signs Temp Pulse Resp BP Pulse Ox 98.5 F 86 18 119/62 97 12/26/18 15:37 12/26/18 15:37 12/26/18 15:37 12/26/18 15:37 12/26/18 15:37 - Physical Exam Comments: General: Comfortable, no acute distress HEENT: PERRL, EOMI, MMM, voice normal, normal neck ROM, no LAD Cards: RRR, no murmur appreciated. No reproducible pain Pulm: Comfortable on room air, clear to auscultation bilaterally Abd: Soft, nontender, nondistended Ext: Atraumatic. No LE edema. ROM intact. Vasc: Extremities WWP Skin: Normal color, no rashes or lesions Neuro: A&Ox3, CN grossly intact, normal speech, motor/sensory grossly intact and symmetric Psych: Mood appropriate to situation <Raquel Freitas - Last Filed: 12/26/18 20:17> Heart Score/ECG Review - History History: Slightly suspicious - Electrocardiogram EKG: Non specific repolarization disturbance - Age Age: 45-65 - Risk Factors Based on the list above the patient has:: >/=3 risk factors or Hx atherosclerotic disease - Troponin Troponin: </= normal limit - Score Heart Score - Total: 4 <Raquel Freitas - Last Filed: 12/26/18 20:17> ED Treatment Course - LABORATORY CBC & Chemistry Diagram: 12/26/18 16:25 12/26/18 16:25 - ADDITIONAL ORDERS Additional order review: Laboratory Results 12/26/18 12/26/18 16:25 16:25 PT with INR 17.10 H INR 1.44 H PTT (Actin FS) 36.6 H Sodium 140 Potassium 3.0 L Chloride 104 Carbon Dioxide 29 Anion Gap 7 L BUN 20 H Creatinine 1.5 H Est GFR (CKD-EPI)AfAm 59.05 Est GFR (CKD-EPI)NonAf 50.95 Random Glucose 100 Calcium 9.2 Total Bilirubin 0.5 AST 117 H ALT 102 H Alkaline Phosphatase 74 Creatine Kinase 218 Creatine Kinase Index 0.5 CK-MB (CK-2) 1.1 Troponin I < 0.02 Total Protein 7.0 Albumin 3.6 Lipase 126 12/26/18 16:25 RBC 5.04 MCV 88.1 MCHC 33.4 RDW 12.8 MPV 9.4 Neutrophils % 64.4 Lymphocytes % 19.3 D Monocytes % 8.1 Eosinophils % 7.6 H Basophils % 0.6 - Medications Given in the ED: ED Medications Discontinued Medications Generic Name Dose Route Start Last Admin Trade Name Freq PRN Reason Stop Dose Admin Aspirin 325 mg 12/26/18 17:17 12/26/18 18:07 Asa - PO 12/26/18 17:18 325 mg ONCE ONE Administration Potassium Chloride 40 meq 12/26/18 18:56 12/26/18 19:16 Potassium Chloride Oral Liquid PO 12/26/18 18:57 40 meq ONCE ONE Administration <Zoe Sharp - Last Filed: 12/26/18 19:27> - LABORATORY CBC & Chemistry Diagram: 12/26/18 16:25 12/26/18 16:25 - RADIOLOGY Radiology Studies Ordered: Category Date Time Status CHEST PA & LAT [RAD] Stat Radiology 12/26/18 16:28 Ordered <Raquel Freitas - Last Filed: 12/26/18 20:17> Medical Decision Making - Medical Decision Making 12/26/18 16:34 Randall Pina is a 58yo man with a PMH of HTN, HLD, CAD s/p stents x3, CVA (1993 , ), a-fib on Eliquis, MICHELLE s/p nasal surgery and tonsillectomy, cardiomegaly, GERD, hiatal hernia, kidney stones, RHIANNA, BPH, and depression who presents with longstanding, intermittent, sharp, pleuritic, non-radiating sternal chest pain without associated symptoms. - Could be due to GERD/hiatal hernia, musculoskeletal. Has significant cardiac history, though current pain is only slightly suspicious for cardiac origin. Less likely pneumonia or lung infection w/o associated symptoms. Unlikely to be PE due to use of anticoagulation. - CBC, CMP, trop, coags, EKG, CXR 12/26/18 16:46 - EKG completed. HR 84, Slight QRS prolongation at 112, normal axis. Nonspecific t-wave and ST abnormalities without significant change from EKG on . 12/26/18 17:23 - Labs reviewed. Trop negative. LFT's slightly elevated, above previous baseline. Lipase added by Dr Sharp - CXR without any focal pathology appreciated. Unchanged compared to 1 year ago - HEART score 4 12/26/18 20:16 - Admitted to obs, Dr Sharp spoke to admitting team Discussed w/ Dr Sharp. Raquel Freitas PGY1 <Raquel Freitas - Last Filed: 12/26/18 20:17> *DC/Admit/Observation/Transfer - Discharge Dispostion Decision to Admit order Date/Time: Decision to Admit Order Category Date Time Status Decision to Admit to Hospital Routine Admission 12/26/18 17:21 Active <Zoe Sharp - Last Filed: 12/26/18 19:27> <Raquel Freitas - Last Filed: 12/26/18 20:17> Diagnosis at time of Disposition: Chest pain - Discharge Dispostion Condition at time of disposition: Stable
[2018-12-26 16:45] LABS: BASO % 0.6 % (0-2.0); EOS % 7.6 % (0-4.5); HEMATOCRIT 44.4 % (35.4-49); HEMOGLOBIN 14.8 GM/dL (11.7-16.9); LYMPH % 19.3 % (8-40); MCH 29.4 pg (25.7-33.7); MCHC 33.4 g/dl (32.0-35.9); MEAN CELL VOLUME 88.1 fl (80-96); MEAN PLT VOLUME 9.4 fl (7.5-11.1); MONO % 8.1 % (3.8-10.2); NEUT % 64.4 % (42.8-82.8); PLATELET COUNT 184 K/MM3 (134-434); RBC 5.04 M/mm3 (4.00-5.60); RDW 12.8 % (11.9-15.9); WHITE BLOOD COUNT 8.4 K/mm3 (4.0-10.0)
[2018-12-26 17:08] LABS: INR 1.44 (0.83-1.09); PROTHROMBIN TIME (PATIENT) 17.1 SEC (9.7-13.0)
[2018-12-26 17:11] LABS: ACTIVATED PTT 36.6 SECONDS (25.2-36.5)
[2018-12-26] MEDS ORDERED: ASPIRIN 325 MG TABLET PO ONE (17:17)
[2018-12-26 17:18] LABS: ALBUMIN 3.6 g/dl (3.4-5.0); ALK PHOS 74 U/L (45-117); ANION GAP 7 MMOL/L (8-16); BILIRUBIN,TOTAL 0.5 mg/dL (0.2-1); BLOOD UREA NITROGEN 20 mg/dL (7-18); CALCIUM 9.2 mg/dL (8.5-10.1); CHLORIDE 104 mmol/L (98-107); CO2 29 mmol/L (21-32); CREATININE 1.5 mg/dL (0.55-1.3); GLUCOSE,RANDOM 100 mg/dL (74-106); SGOT/AST 117 U/L (15-37); SGPT/ALT 102 U/L (13-61); SODIUM 140 mmol/L (136-145)
[2018-12-26] MEDS ORDERED: ASPIRIN 325 MG ENTERIC COATED TABLET (FP) ONE (18:05)
[2018-12-26 18:46] LABS: LIPASE 126 U/L (73-393)
[2018-12-26] MEDS ORDERED: POTASSIUM CHLORIDE ORAL LIQUID 20 MEQ/15 ML PO ONE (18:56)
--- NOTE | 2018-12-26 18:57 | PDOC ---
Documentation entered by Shereen Zarco SCRIBE, acting as scribe for Zoe Sharp MD. Zoe Sharp MD: This documentation has been prepared by the Haroldo francis Nirvannie, SCRIBE, under my direction and personally reviewed by me in its entirety. I confirm that the documentation accurately reflects all work, treatment, procedures, and medical decision making performed by me. Attending Attestation - Resident Resident Name: FortinoRaquel - ED Attending Attestation I have performed the following: I have examined & evaluated the patient, The case was reviewed & discussed with the resident, I agree w/resident's findings & plan - HPI HPI: 12/26/18 18:04 The patient is a 58 year old male, with a significant past medical history of HTN, HLD, CAD s/p stents x3, CVA (1993, ), Afib (on Eliquis), MICHELLE (s/p nasal surgery and tonsillectomy), cardiomegaly, GERD, hiatal hernia, kidney stones, RHIANNA, BPH, and depression, who presents to the emergency department with , worsening sharp, nonradiating, sternal, pleuritic chest pain. Patient notes his symptoms to initially intermittent and now has worsened to constant over the past few days. He denies any recent fevers, chills, headache or dizziness. He denies any recent nausea, vomit, diarrhea or constipation. He denies any recent dysuria, frequency, urgency or hematuria. Denies focal weakness/numbness Allergies: camphor, eucalyptus, eucalyptus oil, menthol, turpentine oil Primary Care Physician: Dr. Bautista - Physicial Exam PE: 12/26/18 18:04 GENERAL: Awake, alert, and fully oriented, in no acute distress HEAD: No signs of trauma EYES: PERRLA, EOMI, sclera anicteric, conjunctiva clear ENT: Nares patent, oropharynx clear without exudates. Moist mucosa NECK: Normal ROM, supple, no lymphadenopathy, JVD, or masses LUNGS: Breath sounds equal, clear to auscultation bilaterally. No wheezes, and no crackles HEART: Regular rate and rhythm, normal S1 and S2, no murmurs, rubs or gallops ABDOMEN: Soft, nontender, normoactive bowel sounds. No guarding, no rebound. No masses EXTREMITIES: Normal range of motion, no edema. No clubbing or cyanosis. No cords , erythema, or tenderness BACK: No midline spinal tenderness in cervical/thoracic/lumbar region NEUROLOGICAL: Normal speech, cranial nerves intact, equal strength and sensation SKIN: Warm, Dry, normal turgor, no rashes or lesions noted. - Medical Decision Making 12/26/18 17:33 58yo M hx MMP including CAD s/p stents, MICHELLE presents to the ED with previously intermittent chest pain, now constant Vitals wnl DDx includes ACS vs GERD vs MSK pain Unlikely PE as no risk factors, no SOB, pt has normal vitals, and is on eliquis Anticipate admission for high risk CP 12/26/18 18:[address] You, pt accepted for admission to tele obs Case discussed in detail with admitting physician including history, physical exam and ancillary studies. Admitting physician has assumed care for the patient, will follow all pending diagnostics and will complete the evaluation and treatment. Heart Score/ECG Review #1 12/26/18 19:21 Twelve-lead EKG was performed and reviewed by me. Normal sinus rhythm, rate 84. Normal axis. No NAHUN . TWI in I and AVL. When compared to EKG from December 2017, TW flattening is new.
--- NOTE | 2018-12-26 19:16 | PN ---
Teaching Attending Note Name of Resident: Krista Hillman ATTENDING PHYSICIAN STATEMENT I saw and evaluated the patient. I reviewed the resident's note and discussed the case with the resident. I agree with the resident's findings and plan as documented. SUBJECTIVE: Patient is a 58 year old man with a PMH of HTN, HLD, CAD s/p stents x3, CVA ( 1994 without deficits), A-fib on Eliquis, MICHELLE s/p nasal surgery and tonsillectomy, cardiomegaly, GERD, hiatal hernia, kidney stones, ?RHIANNA, BPH, and depression who presents with intermittent sternal chest pain. He states that the pain is sharp, constant, and nonradiating. It worsens with deep breaths. He says that he has had the pain for "a long time" and his PMD is aware of it. Previously, he used to use his CPAP at home, which relieved the pain. However, since his tonsillectomy he no longer has a CPAP at home for the past 8- 9 months. Over the past few days, the pain has been present constantly. He says he has been stressed since he stopped using his CPAP and has not slept for 2 days. His labetalol was increased last week from 100mg to 200 mg qd. He felt that it would take too long to get an appointment with his doctor so presented to the ER. Pain worsens only with breathing but not with exertion or movement. He denies fever/chills, cough, sweating, SOB, recent nausea/vomiting, congestion , sick contacts, or lightheadedness. He does note that he has frequent heartburn and has not taken any antiacid medications for "a long time" as he stopped following up with GI. OBJECTIVE: Alert Vital Signs Period Temp Pulse Resp BP Sys/Harper Pulse Ox Last 24 Hr 98.5 F 86-92 18-18 92-119/55-62 96-97 HEENT: No Jaundice, eye redness or discharge, PERRLA, EOMI. Normocephalic, atraumatic. External ears are normal and hearing is grossly intact. No nasal discharge. Neck: Supple, nontender. No palpable adenopathy or thyromegaly. No JVD Chest: Good effort. Clear to auscultation and percussion. Heart: Regular. No S3, rub or murmur Abdomen: Not distended, soft, nontender and no HSM. No rebound or guarding. Normal bowel sounds. Ext: Peripheral pulses intact. No leg edema. Skin: Warm and dry. No petechiae, rash or ecchymosis. Neuro: Alert. Oriented x3. CN 2-12 grossly intact. Sensation grossly intact in all four extremities and DTR are symmetric. Psych: Sad mood and emotionally labile. Apprpriate affect. Good insight. Home Medications Medication Instructions Recorded Alfuzosin HCl [Uroxatral] 10 mg PO DAILY 12/01/16 Amlodipine Besylate [Norvasc -] 5 mg PO DAILY #30 tablet 12/16/17 Apixaban [Eliquis -] 5 mg PO BID tablet 12/16/17 Atorvastatin Ca [Lipitor] 20 mg PO HS 12/16/17 Chlorthalidone 25 mg PO DAILY 12/16/17 Fluticasone Prop 0.05% Nasal 1 - 2 spray NS BID 12/16/17 [Flonase -] Olmesartan Medoxomil [Benicar -] 40 mg PO DAILY 12/16/17 Pantoprazole Sodium [Protonix -] 40 mg PO DAILY #30 tablet.ec 12/16/17 Amitriptyline HCl [Elavil -] 25 mg PO HS tablet 01/20/18 Abnormal Lab Results 12/26/18 12/26/18 12/26/18 16:25 16:25 16:25 Eosinophils % 7.6 H PT with INR 17.10 H INR 1.44 H PTT (Actin FS) 36.6 H Potassium 3.0 L Anion Gap 7 L BUN 20 H Creatinine 1.5 H AST 117 H ALT 102 H ASSESSMENT AND PLAN: 1. Chest pain - His pain is atypical, but he has risk factors for ACS. EKG is NSR with T-wave inversion in avL and V6, and initial troponin is negative. Will admit to telemetry to rule out ACS, get ECHO, fasting lipids and cardiology consult. He got aspirin 325 mg in the ER. No acute abnormality on CXR. Hypokalemia likely due excess renal wasting from Chlorthalidone. Will check Mg+ and treat with IV and PO KCL. Will likely need outpatient KCL supplementation. Will provide night time CPAP, get hepatitis serology, RUQ sonogram, trend LFTs and get urinalysis. Eosinophilia is chronic and etiology is unclear. Will continue Eliquis for Afib. 2. RHIANNA? - Etiology unclear. Dehydration, excessive diuresis and Benicar use may be the culprits. Will hydrate gently, hold Benicar, get kidney sonogram, phospshate and PTH levels. Avoid nephrotoxic agents such as NSAIDS, aminoglycosides, contrast dyes and certain Alternative medicine products. 3. Obesity Counseled on the risks associated with obesity. Will provide patient all the necessary assistance, counseling and positive reinforcement to facilitate weight loss. Consult colleter. 4. Hypertension - Restart appropriate outpatient antihypertensive drugs and revise regimen to ensure smooth [id number] good BP control. Nonpharmacologic measures to control hypertension like weight loss, salt restriction and exercise discussed. 5. DVT prophylaxis - Patient on Eliquis for Afib 6. Advance directives - Full code
[2018-12-26] MEDS ORDERED: POTASSIUM CHLORIDE TABS 20 MEQ TABLET.ER (FP) PO ONE (19:20)
[2018-12-26] MEDS ORDERED: POTASSIUM CHLORIDE ORAL LIQUID 20 MEQ/15 ML ONE (19:20)
[2018-12-26] MEDS ORDERED: SODIUM CHLORIDE 1,000 ML IV SCH (20:15)
[2018-12-26] MEDS ORDERED: KCL 10 MEQ IVPB 10 MEQ/100 ML INFUS.BAG IVPB ONE ×3 (20:27→23:14)
--- NOTE | 2018-12-26 20:29 | HP ---
CHIEF COMPLAINT: chest pain PCP: Dr. Abbasi HISTORY OF PRESENT ILLNESS: 58 y/o M with hx HTN, HLD, CAD s/p 3 stents, CVA (1993; without residual deficits), paraoxysmal afib (on eliquis), MICHELLE (s/p nasal sx, tonsillectomy. no longer on CPAP per pt for 5 mo), GERD, hiatal hernia, BPH, depression, who presents to the ED c/o constant chest pain that started yesterday night. States that it began at rest, when he was lying down in bed. Was mid-sternal without radiation and felt like a "stabbing" sensation and like "chest pressure." Was a/ w intermittent nausea without emesis, however without diaphoresis. States he has had it chronically, however it has worsened recently. Especially ever since he has been off CPAP for the past 5 mo. States he had a sleep study done to evaluate for whether "he still needed CPAP." Saw his cardio, Dr. Calles 1-2 wks ago and had a recent labetalol dosage change from 100mg PO qd to 200mg PO qd. Also endorses insomnia for two days and recent life stress. Unable to explain further. No recent travel, [place], fever, chills, or changes in urinary or bowel function. Of note, had a stress test in 2017 w/o ischemia. ECHO 2018 showed ef 50-55% impaired relaxation, LVSF normal, w mild concentric LVH. ER course was notable for: (1) Kdur 40 (2) asa 325 (3) Recent Travel: denies PAST MEDICAL HISTORY: as above PAST SURGICAL HISTORY: as above Social History: works in a [employer]. Smoking: denies Alcohol: socially; 2x a week Drugs: Family History: father - "cardiac issues" , HTN. sister- dm Allergies NKDA HOME MEDICATIONS: Home Medications Medication Instructions Recorded Alfuzosin HCl [Uroxatral] 10 mg PO DAILY 12/01/16 Apixaban [Eliquis -] 5 mg PO BID tablet 12/16/17 Chlorthalidone 25 mg PO DAILY 12/16/17 Gabapentin 300 mg PO DAILY 12/26/18 Labetalol HCl [Normodyne -] 200 mg PO DAILY 12/26/18 Telmisartan 80 mg PO DAILY 12/26/18 confirmed with patient list at bedside need to be confirmed w pharma REVIEW OF SYSTEMS CONSTITUTIONAL: Absent: fever, chills, diaphoresis, generalized weakness, malaise, loss of appetite, weight change HEENT: Absent: rhinorrhea, nasal congestion, throat pain, throat swelling, difficulty swallowing, mouth swelling, ear pain, eye pain, visual changes CARDIOVASCULAR: +chest pain Absent: chest pain, syncope, palpitations, irregular heart rate, lightheadedness , peripheral edema RESPIRATORY: Absent: cough, shortness of breath, dyspnea with exertion, orthopnea, wheezing, stridor, hemoptysis GASTROINTESTINAL: +nausea Absent: abdominal pain, abdominal distension, nausea, vomiting, diarrhea, constipation, melena, hematochezia GENITOURINARY: Absent: dysuria, frequency, urgency, hesitancy, hematuria, flank pain, genital pain MUSCULOSKELETAL: Absent: myalgia, arthralgia, joint swelling, back pain, neck pain SKIN: Absent: rash, itching, pallor HEMATOLOGIC/IMMUNOLOGIC: Absent: easy bleeding, easy bruising, lymphadenopathy, frequent infections ENDOCRINE: Absent: unexplained weight gain, unexplained weight loss, heat intolerance, cold intolerance NEUROLOGIC: Absent: headache, focal weakness or paresthesias, dizziness, unsteady gait, seizure, mental status changes, bladder or bowel incontinence PSYCHIATRIC: Absent: anxiety, depression, suicidal or homicidal ideation, hallucinations. PHYSICAL EXAMINATION Vital Signs - 24 hr 12/26/18 12/26/18 15:37 16:41 Temperature 98.5 F Pulse Rate 86 86 Pulse Rate [ 92 H Apical] Respiratory 18 18 Rate Blood Pressure 119/62 119/62 Blood Pressure 92/55 L [Right Arm] O2 Sat by Pulse 97 97 Oximetry (%) GENERAL: Resting comfortably. Awake, alert, and fully oriented, in no acute distress. HEAD: Normal with no signs of trauma. EYES: Pupils equal, round and reactive to light, extraocular movements intact, sclera anicteric, conjunctiva clear. EARS, NOSE, THROAT: Ears normal, nares patent, oropharynx clear without exudates. Moist mucous membranes. NECK: Normal range of motion, supple LUNGS: Breath sounds equal, clear to auscultation bilaterally. No wheezes, and no crackles. No accessory muscle use. HEART: +irreg irreg rate and rhythm, normal S1 and S2 without murmur, rub or gallop. CHEST: pain is not reproducible. ABDOMEN: Soft, obese, nontender, not distended, normoactive bowel sounds, no guarding, no rebound, no masses LOWER EXTREMITIES: 2+ pt pulses, warm, well-perfused. No calf tenderness. No peripheral edema. NEUROLOGICAL: Cranial nerves II-XII intact. 5/5 motor strength UE, LE. PSYCHIATRIC: Cooperative. Good eye contact. SKIN: Warm, dry, normal turgor Laboratory Results 12/26/18 12/26/18 12/26/18 16:25 16:25 16:25 WBC 8.4 RBC 5.04 Hgb 14.8 Hct 44.4 D MCV 88.1 MCH 29.4 MCHC 33.4 RDW 12.8 Plt Count 184 MPV 9.4 Absolute Neuts (auto) 5.4 Neutrophils % 64.4 Lymphocytes % 19.3 D Monocytes % 8.1 Eosinophils % 7.6 H Basophils % 0.6 Nucleated RBC % 0 PT with INR 17.10 H INR 1.44 H PTT (Actin FS) 36.6 H Sodium 140 Potassium 3.0 L Chloride 104 Carbon Dioxide 29 Anion Gap 7 L BUN 20 H Creatinine 1.5 H Est GFR (CKD-EPI)AfAm 59.05 Est GFR (CKD-EPI)NonAf 50.95 Random Glucose 100 Calcium 9.2 Total Bilirubin 0.5 AST 117 H ALT 102 H Alkaline Phosphatase 74 Creatine Kinase 218 Creatine Kinase Index 0.5 CK-MB (CK-2) 1.1 Troponin I < 0.02 Total Protein 7.0 Albumin 3.6 Lipase 126 EKG: new TW flattening in 1, v6. nsr, rate 84bpm, qtc 451 ms CXR: without acute abnormality. await official report ASSESSMENT/PLAN: 58 y/o M with hx HTN, HLD, CAD s/p 3 stents, CVA (1993; without residual deficits), paraoxysmal afib (on eliquis), MICHELLE (s/p nasal sx, tonsillectomy. no longer on CPAP per pt for 5 mo), GERD, hiatal hernia, BPH, depression, who presents to the ED c/o constant chest pain that started yesterday night. #Chest pain, r/o ACS -w hx CAD s/p stents x 3, HTN, HLD. -first trop (-), c/t trend -repeat ECHO. last 2018 -lipid profile, a1c -K>4, Mg>2. will replete K with IV K riters. [id number] bags +40kdur. c/w Kdur 20 mEq BID tomorrow -cardio consult: Dr. Calles. has seen previously #paraox afib -c/w eliquis -on BB; labetalol #HTN-controlled -c/w labetalol, chlorthalidone -hold ARB as w rhianna #RHIANNA vs. RHIANNA on CKD -gentle IVF NS 75 cc/hr -urine lytes to calc fena -f/u renal sono -hold ARB #transaminitis -may be 2/2 NAFLD will r/o alternate etiologies. -f/u hep serologies, abd sono to check liver -states has hx of "liver inflammation." however past LFTs were WNL #MICHELLE -s/p nasal, tonsil sx -has been off CPAP for 5 mo -can be reeval. states had recent sleep study for CPAP eval will need to get files #BPH -c/w alfuzosin #F/E/N gentle IVF IV NS 75 cc/hr continue to follow lytes na controlled diet #PPX on eliquis #Dispo tele obs Visit type - Emergency Visit Emergency Visit: Yes ED Registration Date: 12/26/18 Care time: The patient presented to the Emergency Department on the above date and was hospitalized for further evaluation of their emergent condition. - New Patient This patient is new to me today: Yes Date on this admission: 12/26/18 - Critical Care Critical Care patient: No
[2018-12-26] MEDS: KCL 10 MEQ IVPB 10 MEQ/100 ML INFUS.BAG IVPB SCH ×3 (20:58→23:14)
[2018-12-26 23:29] LABS: CHOLESTEROL 201 mg/dL (50-200); HDL CHOLESTEROL 49 mg/dL (40-60); TRIGLYCERIDES 279 mg/dL (0-150)
[2018-12-27] MEDS: APIXABAN 5 MG TABLET PO SCH ×3 (00:01→21:44)
[2018-12-27 08:07] LABS: ALBUMIN 3.2 g/dl (3.4-5.0); BILIRUBIN,TOTAL 0.5 mg/dL (0.2-1); CREATININE 1.1 mg/dL (0.55-1.3); MAGNESIUM 2.4 mg/dL (1.8-2.4); PHOSPHOROUS 3.4 mg/dL (2.5-4.9); POTASSIUM 3.7 mmol/L (3.5-5.1); TOT PROT 6.5 g/dl (6.4-8.2)
[2018-12-27] MEDS ORDERED: PT OWN MED DRAWER 7, Y5N ONE ×2 (09:52→13:07)
[2018-12-27] MEDS: POTASSIUM CHLORIDE TABS 20 MEQ TABLET.ER (FP) PO SCH ×2 (09:55→21:44)
[2018-12-27] MEDS: LABETALOL HCL 200 MG TABLET (FP) PO SCH (09:55)
--- NOTE | 2018-12-27 10:31 | CONSULT ---
Consult Consult Specialty:: Cardiology Referred by:: Medicine Reason for Consultation:: Chest pain - History of Present Illness Chief Complaint: Chest pain History of Present Illness: 58 yo male H/o HTN, Afib on DOAC and known non-obstructive CAD [place] [facility] [place] showing<30%D1. No PCI Now presents with severe chest pain syndrome with pleuritic quality No change in medications Followed by Dr. Staton - Past Medical History [employer]: Yes: CVA (no residual deficits) Cardio/Vascular: Yes: AFIB, CAD, HTN, Other (cardiomyopathy) - Alcohol/Substance Use Hx Alcohol Use: Yes - Smoking History Smoking history: Never smoked Have you smoked in the past 12 months: No Aproximately how many cigarettes per day: 0 Home Medications - Allergies Allergies/Adverse Reactions: Allergies Allergy/AdvReac Type Severity Reaction Status Date / Time camphor [From Vicks Vaporub] Allergy Verified 12/26/18 15:40 eucalyptus Allergy Verified 12/26/18 15:40 [From Vicks Vaporub] eucalyptus oil Allergy Verified 12/26/18 15:40 [From Vicks Vaporub] menthol [From Vicks Vaporub] Allergy Verified 12/26/18 15:40 turpentine oil Allergy Verified 12/26/18 15:40 [From Vicks Vaporub] - Home Medications Home Medications: Ambulatory Orders Alfuzosin HCl [Uroxatral] 10 mg PO DAILY 12/01/16 Apixaban [Eliquis -] 5 mg PO BID tablet 12/16/17 Chlorthalidone 25 mg PO DAILY 12/16/17 Gabapentin 300 mg PO DAILY 12/26/18 Labetalol HCl [Normodyne -] 200 mg PO DAILY 12/26/18 Telmisartan 80 mg PO DAILY 12/26/18 Physical Exam Vital Signs: Vital Signs Temperature 97 F L 12/27/18 08:00 Pulse Rate 74 12/27/18 08:00 Respiratory Rate 20 12/27/18 08:00 Blood Pressure 133/77 12/27/18 08:00 O2 Sat by Pulse Oximetry (%) 98 12/27/18 04:00 Constitutional: Yes: No Distress Eyes: Yes: WNL Neck: Yes: WNL Cardiovascular: Yes: Regular Rate and Rhythm Respiratory: Yes: CTA Bilaterally Gastrointestinal: Yes: Normal Bowel Sounds Musculoskeletal: Yes: WNL Edema: No Labs: CBC, BMP 12/26/18 16:25 12/27/18 06:40 Imaging - Results EKG: Image Reviewed (ECG on 12/26/2018 at 15:33 showed NSR and non-specific TW changes) Assessment/Plan 58 yo male with CV risk factors of HTN and prior PAF on DOAC now with atypical chest pains 1) Chest pain -ECG and troponin unremarkable -[place] [facility] [place] -Given risk factors reasonable to proceed with further stress MPI (as last cath >5yrs ago) 2) Afib -In NSR here -Continue Eliquis 3) HTN -Continue outpatient BP meds
--- NOTE | 2018-12-27 12:31 | PN ---
Progress Note (short form) - Note Progress Note: continues to have CP but states its more pressure now and not stabbing like when he first arrived. denies fever, chills, N/V/C/D Current Medications Generic Name Dose Route Start Last Admin Trade Name Laureano PRN Reason Stop Dose Admin Apixaban 5 mg 12/26/18 22:00 12/27/18 09:55 Eliquis - PO 5 mg BID JARROD Administration Chlorthalidone 25 mg 12/27/18 10:00 Hygroton - PO DAILY JARROD Sodium Chloride 1,000 mls @ 75 mls/hr 12/26/18 20:15 12/26/18 20:58 Normal Saline - IV 75 mls/hr ASDIR JARROD Administration Labetalol HCl 200 mg 12/27/18 10:00 12/27/18 09:55 Normodyne - PO 200 mg DAILY JARROD Administration Non-Formulary Medication 10 mg 12/27/18 10:00 Alfuzosin Hcl [Uroxatral] PO DAILY JARROD Potassium Chloride 20 meq 12/27/18 10:00 12/27/18 09:55 K-Dur - PO 20 meq BID JARROD Administration Last Vital Signs Temp Pulse Resp BP Pulse Ox 97 F L 74 20 133/77 98 12/27/18 08:00 12/27/18 08:00 12/27/18 08:00 12/27/18 08:00 12/27/18 04:00 General NAD CV S1 s2 RRR no murmur/rub/gallop no chest wall tenderness Lungs CTA B/L no wheezing/rales/rhonchi Abdomen soft NT/ND Extremities no pedal edema CBCD WBC 8.4 K/mm3 (4.0-10.0) 12/26/18 16:25 RBC 5.04 M/mm3 (4.00-5.60) 12/26/18 16:25 Hgb 14.8 GM/dL (11.7-16.9) 12/26/18 16:25 Hct 44.4 % (35.4-49) D 12/26/18 16:25 MCV 88.1 fl (80-96) 12/26/18 16:25 MCHC 33.4 g/dl (32.0-35.9) 12/26/18 16:25 RDW 12.8 % (11.9-15.9) 12/26/18 16:25 Plt Count 184 K/MM3 (134-434) 12/26/18 16:25 MPV 9.4 fl (7.5-11.1) 12/26/18 16:25 CMP Sodium 141 mmol/L (136-145) 12/27/18 06:40 Potassium 3.7 mmol/L (3.5-5.1) 12/27/18 06:40 Chloride 104 mmol/L (98-107) 12/27/18 06:40 Carbon Dioxide 30 mmol/L (21-32) 12/27/18 06:40 Anion Gap 7 MMOL/L (8-16) L 12/27/18 06:40 BUN 17 mg/dL (7-18) 12/27/18 06:40 Creatinine 1.1 mg/dL (0.55-1.3) 12/27/18 06:40 Calcium 9.0 mg/dL (8.5-10.1) 12/27/18 06:40 Total Bilirubin 0.5 mg/dL (0.2-1) 12/27/18 06:40 AST 101 U/L (15-37) H 12/27/18 06:40 ALT 103 U/L (13-61) H 12/27/18 06:40 Alkaline Phosphatase 74 U/L (45-117) 12/27/18 06:40 Total Protein 6.5 g/dl (6.4-8.2) 12/27/18 06:40 Albumin 3.2 g/dl (3.4-5.0) L 12/27/18 06:40 A/P 58yo M wtih PMH HTN, dyslipidemia, CVA, afib on eliquis, CAD s/p stents last one placed in 2007 presented to the ER with CP 1. ACS- conitnues to have CP but reports it improved. cardiac markers neg x2. 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 states he had mutliple stress tests since his stent placement but does not recall when the last one was. cardio consulted. will f/u recommendation 2. hypokalemia- Kcl po 3. RHIANNA-possible medication induced. now resolved. will d/c IVF. re-start ARB at reduced dose as BP is controlled and titrate as needed. cont to monitor 4. Mild transaminitis- does not have abdominal pain. u/s done showing mild dilated CBD but not consistent with cholestasis. hepatits panel pending 5. HTN- well controlled with meds held. will re-start ARB as has mortality benefit. adjust as needed to optimize control 6. afib on eliquis- currently NSR. cont eliquis 7. CVA-asa 8. DVT ppx- eliquis Visit type - Emergency Visit Emergency Visit: Yes ED Registration Date: 12/26/18 Care time: The patient presented to the Emergency Department on the above date and was hospitalized for further evaluation of their emergent condition. - New Patient This patient is new to me today: Yes Date on this admission: 12/27/18 - Critical Care Critical Care patient: No - Discharge Referral [facility]erred [facility] Med P.C.: No
[2018-12-27] MEDS: CHLORTHALIDONE 25 MG TABLET PO SCH (13:00)
[2018-12-27] MEDS: LOSARTAN POTASSIUM 50 MG TABLET (FP) PO SCH (13:27)
[2018-12-27] MEDS ORDERED: PANTOPRAZOLE 40 MG TABLET (FP) PO ONE (17:12)
[2018-12-28 06:34] LABS: ALBUMIN 3.4 g/dl (3.4-5.0); BILIRUBIN,TOTAL 0.5 mg/dL (0.2-1); CREATININE 0.9 mg/dL (0.55-1.3); MAGNESIUM 2.2 mg/dL (1.8-2.4); POTASSIUM 3.2 mmol/L (3.5-5.1); TOT PROT 6.9 g/dl (6.4-8.2)
[2018-12-28] MEDS ORDERED: POTASSIUM CHLORIDE TABS 20 MEQ TABLET.ER (FP) PO ONE (07:16)
[2018-12-28] MEDS ORDERED: NITROGLYCERIN SUBLINGUAL 1/150 0.4 MG TAB SL PRN (10:11)
--- NOTE | 2018-12-28 10:22 | PN ---
Physical Exam: SUBJECTIVE: Patient seen and examined at bedside- no acute events overnight patient states that he is still having intermittent chest pain especially when he takes a deep breath in however no associated radiation/nausea or diaphoresis with the chest pain and is not reproducible upon palpation; denies SOB/N/v OBJECTIVE: Vital Signs Period Temp Pulse Resp BP Sys/Harper Pulse Ox Last 24 Hr 97.6 F-98.4 F 68-78 18-20 121-154/62-85 98-99 GENERAL: The patient is awake, alert, and fully oriented, in no acute distress. EYES:PEERLA: EOMI; no scleral icterus NECK:no JVD: no lymphadenopathy LUNGS: CTA B/L; no rales, rhonchi or wheezing HEART: Regular rate and rhythm, S1, S2 without murmur, rub or gallop. ABDOMEN: Soft, nontender, nondistended, normoactive bowel sounds, no guarding, no rebound, no hepatosplenomegaly, no masses. EXTREMITIES: 2+ pulses, warm, well-perfused, no edema. PSYCH: Normal mood, normal affect. SKIN: Warm, dry, normal turgor, no rashes or lesions noted Laboratory Results - last 24 hr 12/28/18 05:30 Sodium 139 Potassium 3.2 L Chloride 104 Carbon Dioxide 26 Anion Gap 9 BUN 14 Creatinine 0.9 Est GFR (CKD-EPI)AfAm 109.50 Est GFR (CKD-EPI)NonAf 94.48 Random Glucose 102 Calcium 9.0 Magnesium 2.2 Total Bilirubin 0.5 AST 101 H ALT 125 H Alkaline Phosphatase 71 Total Protein 6.9 Albumin 3.4 Active Medications Generic Name Dose Route Start Last Admin Trade Name Fredq PRN Reason Stop Dose Admin Apixaban 5 mg 12/26/18 22:00 12/27/18 21:44 Eliquis - PO 5 mg BID JARROD Administration Chlorthalidone 25 mg 12/27/18 10:00 12/27/18 13:00 Hygroton - PO 25 mg DAILY JARROD Administration Labetalol HCl 200 mg 12/27/18 10:00 12/27/18 09:55 Normodyne - PO 200 mg DAILY JARROD Administration Losartan Potassium 50 mg 12/27/18 12:45 12/27/18 13:27 Cozaar - PO 50 mg DAILY JARROD Administration Nitroglycerin 0.4 mg 06/02/19 10:11 Nitrostat - SL Q5M PRN FOR CHEST PAIN Non-Formulary Medication 10 mg 12/27/18 10:00 Alfuzosin Hcl [Uroxatral] PO DAILY JARROD Pantoprazole Sodium 40 mg 12/28/18 10:00 Protonix - PO DAILY JARROD Potassium Chloride 20 meq 12/27/18 10:00 12/27/18 21:44 K-Dur - PO 20 meq BID JARROD Administration Potassium Chloride 40 meq 12/28/18 07:16 K-Dur - PO 12/28/18 07:17 ONCE ONE ASSESSMENT/PLAN: 58 y/o M with hx HTN, HLD, CAD s/p 3 stents, CVA (1993; without residual deficits), paraoxysmal afib (on eliquis), MICHELLE (s/p nasal sx, tonsillectomy. no longer on CPAP per pt for 5 mo), GERD, hiatal hernia, BPH, depression, who presents to the ED c/o constant chest pain that started yesterday night. #Chest pain, r/o ACS -w hx CAD s/p stents x 3, HTN, HLD. -trops negative -repeat ECHO. last 2017 -cardio consult appreciated -stress test tomorrow; NPO after midnight -nitro PRN for chest pain #paraox afib -c/w eliquis -on BB; labetalol #HTN-controlled -c/w labetalol, chlorthalidone -RHIANNA resolved; restarted losartan #RHIANNA vs. RHIANNA on CKD -resolved -restarted ARB #transaminitis -may be 2/2 NAFLD will r/o alternate etiologies. -f/u hep serologies, -ab US showed diffused hepatic steatosis -trend LFTS #MICHELLE -s/p nasal, tonsil sx -has been off CPAP for 5 mo -can be reeval. states had recent sleep study for CPAP eval will need to get files #BPH -c/w alfuzosin #F/E/N gentle IVF IV NS 75 cc/hr continue to follow lytes NPO after midnight for stress tomorrow #PPX on eliquis Problem List - Problems (1) Chest pain Code(s): R07.9 - CHEST PAIN, UNSPECIFIED (2) Epigastric abdominal pain Code(s): R10.13 - EPIGASTRIC PAIN (3) Hyperlipidemia Code(s): E78.5 - HYPERLIPIDEMIA, UNSPECIFIED Qualifiers: Hyperlipidemia type: pure hypercholesterolemia Qualified Code(s): E78.00 - Pure hypercholesterolemia, unspecified; E78.0 - Pure hypercholesterolemia (4) Hypertension Code(s): I10 - ESSENTIAL (PRIMARY) HYPERTENSION Qualifiers: Hypertension type: essential hypertension Qualified Code(s): I10 - Essential (primary) hypertension (5) Obstructive sleep apnea on CPAP Code(s): G47.33 - OBSTRUCTIVE SLEEP APNEA (ADULT) (PEDIATRIC); Z99.89 - DEPENDENCE ON OTHER ENABLING MACHINES AND DEVICES Visit type - Emergency Visit Emergency Visit: Yes ED Registration Date: 12/26/18 Care time: The patient presented to the Emergency Department on the above date and was hospitalized for further evaluation of their emergent condition. - New Patient This patient is new to me today: Yes Date on this admission: 12/28/18 - Critical Care Critical Care patient: No
--- NOTE | 2018-12-28 10:34 | PN ---
Progress Note, Physician History of Present Illness: No events overnight Complains of persistent chest pains with pleuritic component Tele: Neg - Current Medication List Current Medications: Active Medications Apixaban (Eliquis -) 5 mg PO BID [facility] Last Admin: 12/27/18 21:44 Dose: 5 mg Chlorthalidone (Hygroton -) 25 mg PO DAILY [facility] Last Admin: 12/27/18 13:00 Dose: 25 mg Labetalol HCl (Normodyne -) 200 mg PO DAILY [facility] Last Admin: 12/27/18 09:55 Dose: 200 mg Losartan Potassium (Cozaar -) 50 mg PO DAILY [facility] Last Admin: 12/27/18 13:27 Dose: 50 mg Nitroglycerin (Nitrostat -) 0.4 mg SL Q5M PRN PRN Reason: FOR CHEST PAIN Non-Formulary Medication (Alfuzosin Hcl [Uroxatral]) 10 mg PO DAILY [facility] Pantoprazole Sodium (Protonix -) 40 mg PO DAILY [facility] Potassium Chloride (K-Dur -) 20 meq PO BID [facility] Last Admin: 12/27/18 21:44 Dose: 20 meq Potassium Chloride (K-Dur -) 40 meq PO ONCE ONE Stop: 12/28/18 07:17 - Objective Vital Signs: Vital Signs Temperature 98.2 F 12/28/18 09:31 Pulse Rate 78 12/28/18 09:31 Respiratory Rate 20 12/28/18 09:31 Blood Pressure 121/77 12/28/18 09:31 O2 Sat by Pulse Oximetry (%) 99 12/28/18 09:31 Constitutional: Yes: No Distress Eyes: Yes: WNL HENT: Yes: WNL Cardiovascular: Yes: Regular Rate and Rhythm Respiratory: Yes: CTA Bilaterally Edema: No Labs: CBC, BMP 12/26/18 16:25 12/28/18 05:30 INR, PTT INR 1.44 (0.83-1.09) H 12/26/18 16:25 Assessment/Plan 58 yo male with CV risk factors of HTN and prior PAF on DOAC now with atypical chest pains 1) Chest pain -ECG and troponin unremarkable -Last cath on record at [facility] [place] was non-obstructive -While his pain is very atypical, Given risk factors reasonable to proceed with further stress MPI (as last cath >5yrs ago). This has been ordered. 2) Afib -In NSR here -Continue Eliquis 3) HTN -Continue outpatient BP meds
[2018-12-28] MEDS: PANTOPRAZOLE 40 MG TABLET (FP) PO SCH (10:43)
[2018-12-28] MEDS: LABETALOL HCL 200 MG TABLET (FP) PO SCH (10:43)
[2018-12-28] MEDS: LOSARTAN POTASSIUM 50 MG TABLET (FP) PO SCH (10:43)
[2018-12-28] MEDS: APIXABAN 5 MG TABLET PO SCH ×2 (10:43→22:06)
[2018-12-28] MEDS: POTASSIUM CHLORIDE TABS 20 MEQ TABLET.ER (FP) PO SCH ×2 (10:44→22:06)
[2018-12-28] MEDS ORDERED: PT OWN MED DRAWER 7, Y5N ONE (10:48)
[2018-12-28] MEDS: CHLORTHALIDONE 25 MG TABLET PO SCH (10:51)
--- NOTE | 2018-12-28 11:23 | PN ---
Teaching Attending Note Name of Resident: Cheri Castillo ATTENDING PHYSICIAN STATEMENT I saw and evaluated the patient. I reviewed the resident's note and discussed the case with the resident. I agree with the resident's findings and plan as documented. SUBJECTIVE: Complains of ongoing chest pain. No palpitations/cough/sputum/ hemoptysis. No fever/chills. OBJECTIVE: Afebrile, Hemodynamically Stable. Last Vital Signs Temp Pulse Resp BP Pulse Ox 98.2 F 78 20 121/77 99 12/28/18 09:31 12/28/18 09:31 12/28/18 09:31 12/28/18 09:31 12/28/18 09:31 HEENT - Atraumatic, Normocephalic. Heart - S1, S2, RRR Lungs - clear to auscultation Abdomen - Soft, non-tender. Bowel Sounds normal. Extremities - no edema, no calf tenderness. Laboratory Results - last 24 hr 12/28/18 05:30 Sodium 139 Potassium 3.2 L Chloride 104 Carbon Dioxide 26 Anion Gap 9 BUN 14 Creatinine 0.9 Est GFR (CKD-EPI)AfAm 109.50 Est GFR (CKD-EPI)NonAf 94.48 Random Glucose 102 Calcium 9.0 Magnesium 2.2 Total Bilirubin 0.5 AST 101 H ALT 125 H Alkaline Phosphatase 71 Total Protein 6.9 Albumin 3.4 ASSESSMENT AND PLAN: Current Medications Generic Name Dose Route Start Last Admin Trade Name Freq PRN Reason Stop Dose Admin Apixaban 5 mg 12/26/18 22:00 12/28/18 10:43 Eliquis - PO 5 mg BID JARROD Administration Chlorthalidone 25 mg 12/27/18 10:00 12/28/18 10:51 Hygroton - PO 25 mg DAILY JARROD Administration Labetalol HCl 200 mg 12/27/18 10:00 12/28/18 10:43 Normodyne - PO 200 mg DAILY JARROD Administration Losartan Potassium 50 mg 12/27/18 12:45 12/28/18 10:43 Cozaar - PO 50 mg DAILY JARROD Administration Nitroglycerin 0.4 mg 12/28/18 10:11 Nitrostat - SL Q5M PRN FOR CHEST PAIN Non-Formulary Medication 10 mg 12/27/18 10:00 Alfuzosin Hcl [Uroxatral] PO DAILY JARROD Pantoprazole Sodium 40 mg 12/28/18 10:00 12/28/18 10:43 Protonix - PO 40 mg DAILY JARROD Administration Potassium Chloride 20 meq 12/27/18 10:00 12/28/18 10:44 K-Dur - PO 20 meq BID JARROD Administration ASSESSMENT/PLAN: 58 year old male with history of HTN, HLD, CVA, Atrial Fibrillation (on Eliquis) , CAD s/p stents (last 2007) presented with CP 1. Atypical Chest pain in patient with hx CAD s/p PCI/Stents - appears constant and chronic. ECG - no acute changes. Serial TropI neg. Evaluated by Cardio - for Stress Test in AM. Nitro PRN 2. Hypokalemia - will replete. 3. RHIANNA - resolved. Chlorthalidone and ARB resumed at reduced dose. 4. Mild Transaminitis - Abdominal US positive for hepatic steatosis, contracted GB. Hepatitis work-up pending. 5. HTN - continue Alfuzosin, Labetolol, Chlorthalidone and Losartan ( substituted for home Temisartan) 6. Atrial Fibrillation - on Eliquis. In NSR currently, Continue Labetalol. 7. Hx CVA - Continue Eliquis. 8. HLD - LDL above target at 119. With history of CVA and CAD, unclear why patient is not on a statin. Will defer to Cardiology, who is on board. DVT Px - on Eliquis.
[2018-12-28] MEDS: TAMSULOSIN HCL 0.4 MG CAP PO SCH (14:38)
--- NOTE | 2018-12-28 15:31 | EKG ---
Test Reason : Blood Pressure : / mmHG Vent. Rate : 088 BPM Atrial Rate : 088 BPM P-R Int : 144 ms QRS Dur : 114 ms QT Int : 378 ms P-R-T Axes : 065 049 069 degrees QTc Int : 457 ms NORMAL SINUS RHYTHM NONSPECIFIC T WAVE ABNORMALITY ABNORMAL ECG WHEN COMPARED WITH ECG OF 19-JAN-2018 15:18, NONSPECIFIC T WAVE ABNORMALITY NOW EVIDENT IN LATERAL LEADS Confirmed by CINDY YO MD ([id number]) on 12/28/2018 3:30:51 PM Referred By: Confirmed By:CINDY YO MD
[2018-12-28] MEDS ORDERED: MELATONIN 5 MG TABLETS PO ONE (21:57)
[2018-12-29 07:11] LABS: HEMATOCRIT 46.4 % (35.4-49); HEMOGLOBIN 15.6 GM/dL (11.7-16.9); MCH 29.8 pg (25.7-33.7); MCHC 33.6 g/dl (32.0-35.9); MEAN CELL VOLUME 88.6 fl (80-96); MEAN PLT VOLUME 9.7 fl (7.5-11.1); PLATELET COUNT 197 K/MM3 (134-434); RBC 5.24 M/mm3 (4.00-5.60); WHITE BLOOD COUNT 8.9 K/mm3 (4.0-10.0)
[2018-12-29 07:42] LABS: ALBUMIN 3.6 g/dl (3.4-5.0); BILIRUBIN,TOTAL 0.4 mg/dL (0.2-1); CALCIUM 9.3 mg/dL (8.5-10.1); MAGNESIUM 2.2 mg/dL (1.8-2.4); PHOSPHOROUS 3.3 mg/dL (2.5-4.9); POTASSIUM 3.3 mmol/L (3.5-5.1); TOT PROT 7.2 g/dl (6.4-8.2)
[2018-12-29] MEDS ORDERED: POTASSIUM CHLORIDE ORAL LIQUID 20 MEQ/15 ML PO ONE (07:55)
[2018-12-29] MEDS: PANTOPRAZOLE 40 MG TABLET (FP) PO SCH ×2 (08:19→10:12)
[2018-12-29] MEDS: LOSARTAN POTASSIUM 50 MG TABLET (FP) PO SCH ×2 (08:19→10:12)
[2018-12-29] MEDS: APIXABAN 5 MG TABLET PO SCH ×2 (08:20→10:12)
[2018-12-29] MEDS: POTASSIUM CHLORIDE TABS 20 MEQ TABLET.ER (FP) PO SCH ×2 (08:20→10:12)
--- NOTE | 2018-12-29 12:16 | ECHO ---
Name: JERRY MONTEROLO Exam:Adult Echocardiogram Study Date: 12/29/2018 08:06 AM Age: 58 yrs Reason For Study: r/o acs Height: 63 in Weight: 170 lb BSA: 1.8 m2 MMode/2D Measurements & Calculations IVSd: 1.0 cm Ao root diam: 3.0 cm LVIDd: 4.4 cm LA dimension: 3.3 cm LVIDs: 3.2 cm LVPWd: 0.99 cm EDV(Teich): 86.0 ml LVOT diam: 2.0 cm ESV(Teich): 40.9 ml TAPSE: 1.4 cm RV S Frank: 9.5 cm/sec Doppler Measurements & Calculations MV E max frank: 55.8 cm/sec Ao V2 max: 131.9 cm/sec MV A max frank: 83.9 cm/sec Ao max P.0 mmHg MV E/A: 0.66 Ao V2 mean: 88.0 cm/sec MV dec time: 0.26 sec Ao mean P.4 mmHg Ao V2 VTI: 23.9 cm JOSÉ MIGUEL(I,D): 2.5 cm2 JOSÉ MIGUEL(V,D): 2.4 cm2 LV V1 max P.7 mmHg SV(LVOT): 58.8 ml LV V1 mean P.0 mmHg LV V1 max: 95.8 cm/sec LV V1 mean: 65.9 cm/sec LV V1 VTI: 17.9 cm Med Peak E' Frank: 3.8 cm/sec Med E/e': 14.5 Lat Peak E' Frank: 4.8 cm/sec Lat E/e': 11.6 Procedure A complete two-dimensional transthoracic echocardiogram was performed (2D, M-mode, Doppler and color flow Doppler). Technically limited study. Left Ventricle The left ventricle is normal in size. Left ventricular systolic function is normal. Ejection Fraction = 55- 60%. Grade I diastolic dysfunction, (abnormal relaxation pattern). Ratio E/E'= 14. No regional wall m otion abnormalities noted. Right Ventricle The right ventricle is normal size. The right ventricular systolic function is normal. RV systolic TD I is 9 cm/s. Atria The left atrial size is normal. Right atrial size is normal. Mitral Valve There is mild mitral annular calcification. There is no mitral regurgitation noted. Tricuspid Valve The tricuspid valve is normal in structure and function. No tricuspid regurgitation. Aortic Valve The aortic valve is normal in structure and function. No aortic regurgitation is present. Pulmonic Valve The pulmonic valve is not well visualized. Great Vessels The aortic root is normal size. Pericardium/Pleura There is no pericardial effusion. Interpretation Summary Technically limited study The left ventricle is normal in size. Left ventricular systolic function is normal. No regional wall motion abnormalities noted. Ejection Fraction = 55-60%. Grade I diastolic dysfunction, (abnormal relaxation pattern). Ratio E/E'= 14 The right ventricular systolic function is normal. The left atrial size is normal. Right atrial size is normal. There is mild mitral annular calcification. No significant valvular regurgitations There is no pericardial effusion. When compared to study dated 12/16/17, no significant changes were seen Paddy Razo MD 12/29/2018 12:15 PM
[2018-12-29] MEDS: TAMSULOSIN HCL 0.4 MG CAP PO SCH (12:57)
[2018-12-29] MEDS: LABETALOL HCL 200 MG TABLET (FP) PO SCH (12:57)
[2018-12-29] MEDS ORDERED: PT OWN MED DRAWER 7, Y5N ONE (12:59)
[2018-12-29] MEDS: CHLORTHALIDONE 25 MG TABLET PO SCH (13:00)
--- NOTE | 2018-12-29 13:41 | PN ---
Physical Exam: SUBJECTIVE: Patient seen and examined OBJECTIVE: Vital Signs Period Temp Pulse Resp BP Sys/Harper Pulse Ox Last 24 Hr 97.9 F-98.6 F 70-98 18-20 107-142/54-78 96-97 GENERAL: The patient is awake, alert, and fully oriented, in no acute distress. HEAD: Normal with no signs of trauma. EYES: PERRL, extraocular movements intact, sclera anicteric, conjunctiva clear. No ptosis. ENT: Ears normal, nares patent, oropharynx clear without exudates, moist mucous membranes. NECK: Trachea midline, full range of motion, supple. LUNGS: Breath sounds equal, clear to auscultation bilaterally, no wheezes, no crackles, no accessory muscle use. HEART: Regular rate and rhythm, S1, S2 without murmur, rub or gallop. ABDOMEN: Soft, nontender, nondistended, normoactive bowel sounds, no guarding, no rebound, no hepatosplenomegaly, no masses. EXTREMITIES: 2+ pulses, warm, well-perfused, no edema. NEUROLOGICAL: Cranial nerves II through XII grossly intact. Normal speech, gait not observed. PSYCH: Normal mood, normal affect. SKIN: Warm, dry, normal turgor, no rashes or lesions noted Laboratory Results - last 24 hr 12/29/18 12/29/18 06:26 06:26 WBC 8.9 RBC 5.24 Hgb 15.6 Hct 46.4 MCV 88.6 MCH 29.8 MCHC 33.6 RDW 13.0 Plt Count 197 MPV 9.7 Sodium 139 Potassium 3.3 L Chloride 104 Carbon Dioxide 26 Anion Gap 9 BUN 15 Creatinine 1.0 Est GFR (CKD-EPI)AfAm 96.40 Est GFR (CKD-EPI)NonAf 83.18 Random Glucose 109 H Calcium 9.3 Phosphorus 3.3 Magnesium 2.2 Total Bilirubin 0.4 AST 124 H ALT 166 H Alkaline Phosphatase 84 Total Protein 7.2 Albumin 3.6 Active Medications Apixaban (Eliquis -) 5 mg PO BID [facility] Last Admin: 12/29/18 10:12 Dose: Not Given Chlorthalidone (Hygroton -) 25 mg PO DAILY [facility] Last Admin: 12/29/18 13:00 Dose: 25 mg Labetalol HCl (Normodyne -) 200 mg PO DAILY [facility] Last Admin: 12/29/18 12:57 Dose: 200 mg Losartan Potassium (Cozaar -) 50 mg PO DAILY [facility] Last Admin: 12/29/18 10:12 Dose: Not Given Nitroglycerin (Nitrostat -) 0.4 mg SL Q5M PRN PRN Reason: FOR CHEST PAIN Pantoprazole Sodium (Protonix -) 40 mg PO DAILY [facility] Last Admin: 12/29/18 10:12 Dose: Not Given Potassium Chloride (K-Dur -) 20 meq PO BID [facility] Last Admin: 12/29/18 10:12 Dose: Not Given Tamsulosin HCl (Flomax -) 0.4 mg PO DAILY@0830 [facility] Last Admin: 12/29/18 12:57 Dose: 0.4 mg IMAGING: * ECHO: ASSESSMENT/PLAN:
[2018-12-29 15:35] VITALS: BP 132/71; PULSE 89; TEMP 98.1
--- NOTE | 2018-12-29 15:36 | PN ---
Progress Note (short form) - Note Progress Note: s: no chest pain, palps, dizziness, lightheadedness, dyspnea Current Medications Apixaban (Eliquis -) 5 mg PO BID [facility] Last Admin: 12/29/18 10:12 Dose: Not Given Chlorthalidone (Hygroton -) 25 mg PO DAILY [facility] Last Admin: 12/29/18 13:00 Dose: 25 mg Labetalol HCl (Normodyne -) 200 mg PO DAILY [facility] Last Admin: 12/29/18 12:57 Dose: 200 mg Losartan Potassium (Cozaar -) 50 mg PO DAILY [facility] Last Admin: 12/29/18 10:12 Dose: Not Given Nitroglycerin (Nitrostat -) 0.4 mg SL Q5M PRN PRN Reason: FOR CHEST PAIN Pantoprazole Sodium (Protonix -) 40 mg PO DAILY [facility] Last Admin: 12/29/18 10:12 Dose: Not Given Potassium Chloride (K-Dur -) 20 meq PO BID [facility] Last Admin: 12/29/18 10:12 Dose: Not Given Tamsulosin HCl (Flomax -) 0.4 mg PO DAILY@0830 [facility] Last Admin: 12/29/18 12:57 Dose: 0.4 mg Vital Signs Period Temp Pulse Resp BP Sys/Harper Pulse Ox Last 24 Hr 97.9 F-98.6 F 70-98 18-20 107-142/54-78 96-97 Constitutional: Yes: No Distress Eyes: Yes: WNL HENT: Yes: WNL Cardiovascular: Yes: Regular Rate and Rhythm Respiratory: Yes: CTA Bilaterally Edema: No no jaundice, diaphoresis not agitated tele: sinus echo 12/2018 nl LV/RV function, E/A reversal, mild MAC exercise mibi 12/2018 sm to mod inf fixed defect from base to mid cavity c/w diaphragmatic attenuation, nl LV function Assessment/Plan 58 yo male with CV risk factors of HTN and prior PAF on DOAC now with atypical chest pains 1) Chest pain -ECG and troponin unremarkable -Last cath on record at [facility] [place] non-obstructive - echo nl LV function - stress test no ischemia, fixed defect likely artifact - stable for dc from cardiac perspective, outpatient follow up 2) Afib -In NSR here -Continue Eliquis 3) HTN -Continue outpatient BP meds
--- NOTE | 2018-12-29 15:41 | PN ---
Teaching Attending Note Name of Resident: Zaira Rinaldi ATTENDING PHYSICIAN STATEMENT I saw and evaluated the patient. I reviewed the resident's note and discussed the case with the resident. I agree with the resident's findings and plan as documented. SUBJECTIVE:asymptomatic. CP completely gone.denies palpitations, N/V/C/D OBJECTIVE: Last Vital Signs Temp Pulse Resp BP Pulse Ox 98.1 F 89 18 132/71 97 12/29/18 14:00 12/29/18 14:00 12/29/18 12:00 12/29/18 14:00 12/29/18 08:21 General NAD CV S1 S2 RRR ASSESSMENT AND PLAN: 58yo M wtih PMH HTN, dyslipidemia, CVA, afib on eliquis, CAD s/p stents last one placed in 2007 presented to the ER with CP 1. ACS- now resolved. markers negative. echo reviewed with no changes from previous. NMST done today and awaiting results. cardio on board 2. hypokalemia- resolved 3. RHIANNA-possible medication induced. now resolved. 4. Mild transaminitis- does not have abdominal pain. LFT stable. u/s done showing mild dilated CBD but not consistent with cholestasis. hepatits panel pending. should have them repeated in 1 week 5. HTN-will d/c on home medications. 6. afib on eliquis- currently NSR. cont eliquis 7. CVA-asa 8. DVT ppx- eliquis 9. possible d/c home later today pending results of NMST
--- NOTE | 2018-12-29 16:55 | DS ---
Physical Exam: SUBJECTIVE: Patient seen and examined at bedside. No acute events overnight. OBJECTIVE: Vital Signs Period Temp Pulse Resp BP Sys/Harper Pulse Ox Last 24 Hr 97.9 F-98.6 F 70-98 18-20 107-142/54-78 96-97 PHYSICAL EXAM GENERAL: The patient is awake, alert, and fully oriented, in no acute distress. EYES:PEERLA: EOMI; no scleral icterus NECK:no JVD: no lymphadenopathy LUNGS: CTA B/L; no rales, rhonchi or wheezing HEART: Regular rate and rhythm, S1, S2 without murmur, rub or gallop. ABDOMEN: Soft, nontender, nondistended, normoactive bowel sounds, no guarding, no rebound, no hepatosplenomegaly, no masses. EXTREMITIES: 2+ pulses, warm, well-perfused, no edema. PSYCH: Normal mood, normal affect. SKIN: Warm, dry, normal turgor, no rashes or lesions noted LABS Laboratory Results - last 24 hr 12/29/18 12/29/18 06:26 06:26 WBC 8.9 RBC 5.24 Hgb 15.6 Hct 46.4 MCV 88.6 MCH 29.8 MCHC 33.6 RDW 13.0 Plt Count 197 MPV 9.7 Sodium 139 Potassium 3.3 L Chloride 104 Carbon Dioxide 26 Anion Gap 9 BUN 15 Creatinine 1.0 Est GFR (CKD-EPI)AfAm 96.40 Est GFR (CKD-EPI)NonAf 83.18 Random Glucose 109 H Calcium 9.3 Phosphorus 3.3 Magnesium 2.2 Total Bilirubin 0.4 AST 124 H ALT 166 H Alkaline Phosphatase 84 Total Protein 7.2 Albumin 3.6 HOSPITAL COURSE: Date of Admission:12/26/18 58 y/o M with hx HTN, HLD, CAD s/p 3 stents, CVA (1993; without residual deficits), paraoxysmal afib (on eliquis), MICHELLE (s/p nasal sx, tonsillectomy. no longer on CPAP per pt for 5 mo), GERD, hiatal hernia, BPH, depression, who presents to the ED c/o constant chest pain admitted to r/o ACS. Trops were neg x2. He underwent stress test that did not show any acute ischemia and a fixed defect likely due to artifact per cardio. Echo was done that showed normal LV function. During his hospital stay, his symptoms improved. He was discharged home with instructions to follow up with his PCP and climatology teacher for outpatient eval. Date of Discharge: 12/29/18 Minutes to complete discharge: 35 Discharge Summary Reason For Visit: CHEST PAIN Condition: Improved - Instructions Diet, Activity, Other Instructions: You were seen in the hospital for complaints of chest pain. A stress test was done and evaluated by a climatology teacher. You were not found to have an acute cardiac condition at this time. Your symptoms improved and you are being discharged home. MEDICAL RECOMMENDATIONS Please continue taking your home medications as directed. CONSULTS Please follow up with your PCP, Dr. Bautista within 1 week. You will need a repeat blood test of your liver function enzymes. Please follow up with your climatology teacher, within 1 week. If you experience worsening chest pain/tightness/pressure, shortness of breath or other associated symptoms, please proceed to your nearest emergency room immediately. Referrals: Edgar Bautista MD [Primary Care Provider] - 1 Week Jenna Solano MD [Staff Physician] - 1 Week Disposition: HOME - Home Medications Comprehensive Discharge Medication List: Ambulatory Orders Alfuzosin HCl [Uroxatral] 10 mg PO DAILY 12/01/16 Apixaban [Eliquis -] 5 mg PO BID tablet 12/16/17 Chlorthalidone 25 mg PO DAILY 12/16/17 Gabapentin 300 mg PO DAILY 12/26/18 Labetalol HCl [Normodyne -] 200 mg PO DAILY 12/26/18 Telmisartan 80 mg PO DAILY 12/26/18 Miscellaneous Medical Supply [Outpatient Order] 1 [facility] ASDIR #1 [place] This patient is new to me today: Yes Date on this admission: 01/01/19 Emergency Visit: Yes ED Registration Date: 12/26/18 Care time: The patient presented to the Emergency Department on the above date and was hospitalized for further evaluation of their emergent condition. Critical Care patient: No - Discharge Referral Referred to [facility] Med P.C.: Yes Physician Referral: Edgar Abbasi MD ([facility])
--- NOTE | 2018-12-31 15:45 | EKG ---
Test Reason : Blood Pressure : / mmHG Vent. Rate : 074 BPM Atrial Rate : 074 BPM P-R Int : 162 ms QRS Dur : 106 ms QT Int : 390 ms P-R-T Axes : 053 031 048 degrees QTc Int : 432 ms NORMAL SINUS RHYTHM NONSPECIFIC T WAVE ABNORMALITY ABNORMAL ECG WHEN COMPARED WITH ECG OF 26-DEC-2018 16:23, NO SIGNIFICANT CHANGE WAS FOUND Confirmed by NESSA BISHOP MD ([id number]) on 12/31/2018 3:44:33 PM Referred By: Confirmed By:NESSA BISHOP MD
== END 2018-12-29 17:33 | disposition home or self-care (01) ==
LOC: JER 15:35 → JERBED 17:21 → J4W 23:26
PROVIDERS: ADMIT Internal Medicine; ATTEND Internal Medicine
PROC: 3E0337Z Introduction of Electrolytic and Water Balance Substance into Peripheral Vein, Percutaneous Approach (ICD-10-PCS; principal; 2018-12-26)
DX: R07.89 Other chest pain (principal); I10 Essential (primary) hypertension; E78.5 Hyperlipidemia, unspecified; I25.10 Atherosclerotic heart disease of native coronary artery without angina pectoris; I25.2 Old myocardial infarction; I48.0 Paroxysmal atrial fibrillation; G47.33 Obstructive sleep apnea (adult) (pediatric); I51.7 Cardiomegaly; N17.9 Acute kidney failure, unspecified; K21.9 Gastro-esophageal reflux disease without esophagitis; N40.0 Benign prostatic hyperplasia without lower urinary tract symptoms; F32.9 Major depressive disorder, single episode, unspecified; K44.9 Diaphragmatic hernia without obstruction or gangrene; R74.0 Nonspecific elevation of levels of transaminase and lactic acid dehydrogenase [LDH]; E87.6 Hypokalemia; E66.9 Obesity, unspecified; Z68.30 Body mass index [BMI] 30.0-30.9, adult; Z87.442 Personal history of urinary calculi; Z86.73 Personal history of transient ischemic attack (TIA), and cerebral infarction without residual deficits; Z95.5 Presence of coronary angioplasty implant and graft; Z79.01 Long term (current) use of anticoagulants; Z88.8 Allergy status to other drugs, medicaments and biological substances
CPT/HCPCS: 36415; 71046-TC-FY; 76700-TC; 78452-TC; 80053; 80061; 82550; 82553; 83036; 83690; 83721; 83735; 84100; 84484; 85025; 85027; 85610; 85730; 86704; 86706; 86708; 87340; 87522; 93005; 93010; 93017; 93306-TC; 99285-25; A9502; G0378; J7030

== ENCOUNTER 2019-03-08 16:27 | Observation (INO) | payer OTHER ==
[2019-03-08 16:36] VITALS: BMI 30.1
--- NOTE | 2019-03-08 16:57 | PDOC ---
History of Present Illness - General Chief Complaint: Chest Pain Stated Complaint: chest pain Time Seen by Provider: 03/08/19 16:38 History Source: Patient, Family (daughter) Exam Limitations: Language Barrier - History of Present Illness Initial Comments: 03/08/19 17:10 58yo M with PMH of CAD s/p cath without stenting, Afib (apixaban), HTN, HLD, MICHELLE (s/p nasal sx, tonsillectomy. no longer on CPAP), GERD, Hiatal Hernia, BPH, Depression presenting to ED with complaints of substernal chest pain x3 days. Pain is 7/10, constant, non radiating. He was laying down when the pain started suddenly. It is not positional or associated with exertion but varies in intensity throughout the day without eliciting factors. He feels the pain when he inspires. He has had similar pain in the past. He has not taken anything for this pain. He denies fever, chills, cough, back pain, headache, syncope, abdominal pain, n/v/d, urinary symptoms, recent travel, leg swelling, numbness/ tingling, strenuous exercise. Patient was admitted here 2m ago for similar complaints. Echo 12/2018- normal LVF Stress 12/2018- no ischemia PMD: [place] Cardio: [place] PMH: see hpi PSH: hernia repair, tonsillectomy Meds: see med rec Allergies: nkda, see allergy list Social: denies Past History - Past Medical History Allergies/Adverse Reactions: Allergies Allergy/AdvReac Type Severity Reaction Status Date / Time No Known Allergies Allergy Verified 03/08/19 17:36 Home Medications: Ambulatory Orders Apixaban [Eliquis -] 5 mg PO BID tablet 12/16/17 Gabapentin 300 mg PO BID 12/26/18 Labetalol HCl [Normodyne -] 200 mg PO DAILY 12/26/18 Alfuzosin HCl [Uroxatral] 10 mg PO DAILY 03/08/19 Atorvastatin Ca [Lipitor] 20 mg PO HS 03/08/19 Valsartan/Hydrochlorothiazide [Valsartan-Hctz 320-25 mg Tab] 1 tab PO DAILY 06/16 Anemia: No Asthma: No Cancer: No Cardiac Disorders: Yes (1 AK, 3 CATHS, CARDIOMEGALY,A FIB) CVA: Yes COPD: No CHF: No Dementia: No Diabetes: No GI Disorders: Yes (ABD. PAIN, GALLSTONES) Disorders: Yes (GERD) HTN: Yes Hypercholesterolemia: Yes Liver Disease: Yes (ELEVATED ENZYMES, STILL DRINKS ETOH A FEW X PER WEEK) Seizures: No Thyroid Disease: No - Surgical History Abdominal Surgery: Yes (RIGHT INGUINAL HERNIA REPAIR) Appendectomy: No Cardiac Surgery: Yes (CARDIAC CATHETERIZATION) Cholecystectomy: No Lung Surgery: No Neurologic Surgery: No Orthopedic Surgery: No - Immunization History Immunization Up to Date: Yes - Suicide/Smoking/Psychosocial Hx Smoking Status: No Smoking History: Never smoked Have you smoked in the past 12 months: No Number of Cigarettes Smoked Daily: 0 Hx Alcohol Use: Yes Drug/Substance Use Hx: No Substance Use Type: None Hx Substance Use Treatment: No Cardiac Specific PMH - Complaint Specific PMHX GERD: No Pacemaker: No Review of Systems - Review of Systems Constitutional: No: Chills, Fever, Weakness HEENTM: No: Eye Pain, Blurred Vision Respiratory: Yes: See HPI, Shortness of Breath (with inspiration). No: Cough, SOB at Rest Cardiac (ROS): Yes: Chest Pain. No: Edema, Irregular Heart Rate, Lightheadedness, Palpitations, Syncope ABD/GI: No: Symptoms Reported : No: Symptoms Reported Musculoskeletal: No: Back Pain, Joint Pain Integumentary: No: Symptoms Reported Neurological: No: Symptoms reported *Physical Exam - Vital Signs Last Vital Signs Temp Pulse Resp BP Pulse Ox 98.1 F 86 20 123/80 98 03/09/19 14:29 03/09/19 14:29 03/09/19 14:29 03/09/19 14:29 03/09/19 14:29 - Physical Exam General Appearance: Yes: Nourished, Appropriately Dressed, Mild Distress HEENT: positive: EOMI, CHRISTOPH, Normal ENT Inspection Neck: positive: Trachea midline, Supple Respiratory/Chest: positive: Lungs Clear, Normal Breath Sounds. negative: Chest Tender, Rales, Rhonchi, Stridor, Wheezing Cardiovascular: positive: Regular Rhythm, Regular Rate, S1, S2. negative: Edema , JVD, Murmur Vascular Pulses: Dorsalis-Pedis (R): 2+, Doralis-Pedis (L): 2+ Gastrointestinal/Abdominal: positive: Normal Bowel Sounds, Soft. negative: Tender Musculoskeletal: negative: CVA Tenderness, Muscle Spasm, Vertebral Tenderness Extremity: positive: Normal Capillary Refill, Pelvis Stable. negative: Swelling , Calf Tenderness Integumentary: positive: Normal Color, Dry, Warm Neurologic: positive: curb setter II-XII NML intact, Fully Oriented, Alert, Normal Mood/ Affect, Normal Response, Motor Strength 11/30 ED Treatment Course - LABORATORY CBC & Chemistry Diagram: 03/09/19 06:00 03/09/19 06:00 - ADDITIONAL ORDERS Additional order review: 03/08/19 17:00 RBC 4.70 MCV 90.1 MCHC 34.5 RDW 13.3 MPV 9.7 Neutrophils % 56.2 Lymphocytes % 26.6 D Monocytes % 9.6 Eosinophils % 6.8 H Basophils % 0.8 - RADIOLOGY Radiology Studies Ordered: Category Date Time Status CHEST PA & LAT [RAD] Stat Radiology 03/08/19 16:43 Completed - Medications Given in the ED: ED Medications Discontinued Medications Generic Name Dose Route Start Last Admin Trade Name Freq PRN Reason Stop Dose Admin Acetaminophen 975 mg 03/08/19 18:42 03/08/19 19:00 Tylenol - PO 03/08/19 18:43 975 mg ONCE ONE Administration Aspirin 162 mg 03/08/19 17:29 03/08/19 17:35 Asa - PO 03/08/19 17:30 162 mg ONCE ONE Administration Sodium Chloride 1,000 mls @ 1,000 mls/hr 03/08/19 18:13 03/08/19 19:00 Normal Saline - IV 03/08/19 19:12 1,000 mls/hr ASDIR STA Administration Ibuprofen 600 mg 03/08/19 22:48 03/08/19 22:57 Motrin - PO 03/08/19 22:49 600 mg ONCE ONE Administration Potassium Chloride 20 meq 03/08/19 20:56 03/08/19 22:46 K-Dur - PO 03/08/19 20:57 20 meq ONCE ONE Administration Potassium Chloride 40 meq 03/09/19 07:45 03/09/19 08:30 K-Dur - PO 03/09/19 07:46 40 meq ONCE ONE Administration Potassium Chloride 40 meq 03/09/19 11:49 03/09/19 14:27 Potassium Chloride Oral Liquid PO 03/09/19 11:50 40 meq ONCE ONE Administration Medical Decision Making - Medical Decision Making 03/08/19 17:44 58yo M with PMH of CAD s/p cath without stenting, Afib (apixaban), HTN, HLD, MICHELLE (s/p nasal sx, tonsillectomy. no longer on CPAP), GERD, Hiatal Hernia, BPH, Depression presenting to ED with complaints of substernal chest pain x3 days. Pain is 7/10, constant, non radiating. He was laying down when the pain started suddenly. It is not positional or associated with exertion but varies in intensity throughout the day without eliciting factors. He feels the pain when he inspires. He has had similar pain in the past. He has not taken anything for this pain. He denies fever, chills, cough, back pain, headache, syncope, abdominal pain, n/v/d, urinary symptoms, recent travel, leg swelling, numbness/ tingling, strenuous exercise. Vitals: wnl PE: benign, no chest wall tenderness, lungs cta, normal heart sounds Given patient history, could be acs. PE less likely given patient is on anticoagulation. Patient has had similar pain in the past. No chest wall tenderness, less likely msk. costochondritis, GERD could be likely given hiatal hernia however not associated with food, does not have metallic taste Cardiac cath 2012- no occlusion echo 12/2018- normal LV function Stress test 2018- no ischemia, likely artifact. will order ekg, cxr, labs, cardiac workup. will give ASA for pain. will call Dr. Calles. 03/08/19 18:39 trop negative, K 3.2. Cr 1.4. ekg: nsr at 89bpm, pr 148, qtc 445. no beth or depressions. similar to previous ekg. CXR: normal Call back by Dr. Wilde. Recommended serial ekg and trop for 6h and dc or admit obs. Patient continues to have chest pain despite ASA. Will likely benefit from admission. Will order fluids for elevated Cr and Tylenol for pain. 03/08/19 19:10 *DC/Admit/Observation/Transfer Diagnosis at time of Disposition: Chest pain Qualifiers: Chest pain type: unspecified Qualified Code(s): R07.9 - Chest pain, unspecified - Discharge Dispostion Condition at time of disposition: Good - Referrals - Patient Instructions - Post Discharge Activity
[2019-03-08 17:21] LABS: BASO % 0.8 % (0-2.0); EOS % 6.8 % (0-4.5); HEMATOCRIT 42.3 % (35.4-49); HEMOGLOBIN 14.6 GM/dL (11.7-16.9); LYMPH % 26.6 % (8-40); MCH 31.1 pg (25.7-33.7); MCHC 34.5 g/dl (32.0-35.9); MEAN CELL VOLUME 90.1 fl (80-96); MEAN PLT VOLUME 9.7 fl (7.5-11.1); MONO % 9.6 % (3.8-10.2); NEUT % 56.2 % (42.8-82.8); PLATELET COUNT 165 K/MM3 (134-434); RDW 13.3 % (11.9-15.9); WHITE BLOOD COUNT 6.4 K/mm3 (4.0-10.0)
[2019-03-08] MEDS ORDERED: ASPIRIN 81 MG CHEWABLE TABLETS PO ONE (17:29)
--- NOTE | 2019-03-08 17:32 | PDOC ---
Documentation entered by Ney Goetz SCRIBE, acting as scribe for Sherri Regalado MD. Sherri Regalado MD: This documentation has been prepared by the [email or web address] Daniel, SCRIBE, under my direction and personally reviewed by me in its entirety. I confirm that the documentation accurately reflects all work, treatment, procedures, and medical decision making performed by me. Attending Attestation - Resident Resident Name: Alma Gil - ED Attending Attestation I have performed the following: I have examined & evaluated the patient, The case was reviewed & discussed with the resident, I agree w/resident's findings & plan, Exceptions are as noted - HPI HPI: 03/08/19 17:17 The patient is a 58 year old male with a past medical history of CAD s/p catheterization (6 years ago), HTN, HLD, afib (eliquis), and GERD here today for evaluation of chest pain. The patient reports that his chest pain began 3 days ago and describes it as substernal, constant, fluctuates in severity ( currently 7/10), squeezing pain, and worse with deep breaths. He notes being seen for similar pains in the past. Patient denies headache, lightheadedness. Denies fever, chills. Denies chest pain. Denies nausea, vomiting, diarrhea, abdominal pain. Allergies: camphor, eucalyptus, eucalyptus oil, menthol, turpentine oil Luncheonette Operator: Kirk Calles - Physicial Exam PE: GENERAL: Awake, alert, and fully oriented, in no acute distress. Appears uncomfortable HEAD: No signs of trauma EYES: PERRLA, EOMI, sclera anicteric, conjunctiva clear ENT: Auricles normal inspection, hearing grossly normal, nares patent, oropharynx clear without exudates. Moist mucosa NECK: Normal ROM, supple, no lymphadenopathy, JVD, or masses LUNGS: Breath sounds equal, clear to auscultation bilaterally. No wheezes, and no crackles HEART: Regular rate and rhythm, normal S1 and S2, no murmurs, rubs or gallops ABDOMEN: Soft, nontender, normoactive bowel sounds. No guarding, no rebound. No masses EXTREMITIES: Normal range of motion, no edema. No clubbing or cyanosis. No cords, erythema, or tenderness NEUROLOGICAL: Cranial nerves II through XII grossly intact. Normal speech, normal gait. Motor and sensation intact SKIN: Warm, dry, normal turgor, no rashes or lesions noted. - Medical Decision Making Pt with multiple cardiac risk factors, prior negative workup including a cath, presenting with active chest pain in ED. Will obtain EKG, labs, and CXR. Will d/ w cardiology. May require admission as the pain has not resolved. Heart Score/ECG Review - History History: Moderately suspicious - Electrocardiogram EKG: Non specific repolarization disturbance - Age Age: 45-65 - Risk Factors Risk Factors Heart Score: Yes Hx Hypertension, Yes Hx Obesity Based on the list above the patient has:: 1-2 risk factors - Troponin Troponin: </= normal limit - Score Heart Score - Total: 4
[2019-03-08 17:33] LABS: INR 1.38 (0.83-1.09); PROTHROMBIN TIME (PATIENT) 16.3 SEC (9.7-13.0)
[2019-03-08] MEDS ORDERED: ASPIRIN 81 MG CHEWABLE TABLETS ONE (17:33)
[2019-03-08 17:44] LABS: ALBUMIN 3.4 g/dl (3.4-5.0); BILIRUBIN,TOTAL 0.3 mg/dL (0.2-1); BLOOD UREA NITROGEN 22.9 mg/dL (7-18); CALCIUM 8.5 mg/dL (8.5-10.1); CREATININE 1.4 mg/dL (0.55-1.3); MAGNESIUM 2.1 mg/dL (1.8-2.4); POTASSIUM 3.2 mmol/L (3.5-5.1)
[2019-03-08] MEDS ORDERED: SODIUM CHLORIDE 1,000 ML IV STA (18:13)
[2019-03-08] MEDS ORDERED: ACETAMINOPHEN 500 MG TABLET (FP) PO ONE (18:42)
[2019-03-08] MEDS ORDERED: ACETAMINOPHEN 325 MG TABLET (FP) ONE (18:57)
--- NOTE | 2019-03-08 19:33 | PN ---
Teaching Attending Note ATTENDING PHYSICIAN STATEMENT I saw and evaluated the patient. I reviewed the resident's note and discussed the case with the resident. I agree with the resident's findings and plan as documented. Seen and examined; please refer to resident note for further historical information. Briefly, this a a 58 y/o male presenting to the ER with chest pain. He is a patient of Dr. Calles and has been discussed with him; recent negative stress during november/december admission (defect consistent with diaphragmatic attenuation per notes). HE has HTN, dyslipidemia, CVA, afib on eliquis, CAD s/p stents last one placed in 2007 presented to the ER with CP. Had a recent admission for chest pain when the stress was done with his cardiac markers remaining negative. At that time echo reviewed with no changes from previous and normal LVEF but some E/A reversal consistent with DD. VS, labs, imaging reviewed NAD, AAO, resting in bed RRR s1/2 Lungs CTAB, w/ sym exp NT ND +BS CN2-12 wnl, no fnd Normal mood, appropriate behavior EKG reviewed Prior MIBI and Prior Echo reviewed; discussed per HPI Tele ordered ASSESSMENT AND PLAN: Patient presents with chest pain; negative workup in November/December admission with negative workup thus far; cardiology following. Appreciate expert opinion. # Atypical CP with hx CAD s/p PCI -Recent negative stress with negative CE and no findings on tele and EKG with no significant changes on comparison argues against current ACS, especially with his being on eliquis and presenting sx. Will trend troponin and monitor telemetry; further workup per his per diem physical therapist. # Hx renal stones -Could be referred pain; check US # Hx BPH -Ensure no obs # RHIANNA -Recurring; holding chlorthalidone in AM and hydrating overnight. Resume when clinically appropriate. # Peripheral eosinophilia -Chronic; check strongyloides and O and P. # Chronic Transaminitis -Noted; trend CMP. Consider OP GI workup
[2019-03-08] MEDS ORDERED: SODIUM CHLORIDE 1,000 ML IV SCH (19:45)
[2019-03-08] MEDS ORDERED: POTASSIUM CHLORIDE TABS 20 MEQ TABLET.ER (FP) PO ONE ×2 (20:56→22:43)
--- NOTE | 2019-03-08 21:14 | HP ---
CHIEF COMPLAINT: Chest pain PCP: Dr. Abbasi Platform Builder: Dr. Calles HISTORY OF PRESENT ILLNESS: Patient is a 58 year old male with PMH of HTN, HLD, CAD s/p 3 stents, CVA (1993 ; without residual deficits), paraoxysmal afib (on eliquis), MICHELLE (s/p nasal surgery and tonsillectomy; no longer on CPAP x7 monhs), GERD, hiatal hernia, BPH , depression, who presents with sudden-onset substernal chest pain for 3 days. Pain is constant, stabbing, non-radiating, and not positional or associated with exertion. It is worse with inspiration. He denies any identifiable relieving factors and has not taken anything for the pain. He denies associated fever, nausea, vomiting, diaphoresis, cough, or leg swelling. Patient was admitted 2 months ago for similar symptoms. A stress test on 12/26/18 showed no acute ischemia and an echo on 12/29/18 showed normal LVF and EF: 55-60%. Pt endorses unrelated moderate right-sided abdominal pain that he attributes to kidney stones diagnosed last year. He denies any urinary symptoms. ER course was notable for: (1) EKG: NSR with no ischemic changes (2) Trop: neg (3) Given asa w/o relief of pain Recent Travel: denies PAST MEDICAL HISTORY: CAD s/p 3 stents HTN HLD CVA Paroxysmal Afib (on eliquis) MICHELLE GERD Hiatal hernia BPH Depression PAST SURGICAL HISTORY: Catheterization x6 years ago Nasal surgery Tonsillectomy Social History: Smoking: denies Alcohol: beer 2-3 times per week Drugs: denies Family History: Father: heart disease Allergies No Known Allergies Allergy (Verified 03/08/19 17:36) HOME MEDICATIONS: Home Medications Medication Instructions Recorded Apixaban [Eliquis -] 5 mg PO BID tablet 12/16/17 Chlorthalidone 25 mg PO DAILY 12/16/17 Gabapentin 300 mg PO DAILY 12/26/18 Labetalol HCl [Normodyne -] 200 mg PO DAILY 12/26/18 Alfuzosin HCl [Uroxatral] 10 mg PO DAILY 03/08/19 Atorvastatin Ca [Lipitor] 20 mg PO HS 03/08/19 Valsartan/Hydrochlorothiazide 1 tab PO DAILY 08/11/19 [Valsartan-Hctz 320-25 mg Tab] REVIEW OF SYSTEMS CONSTITUTIONAL: Absent: fever, chills, diaphoresis, generalized weakness, malaise, loss of appetite, weight change HEENT: Absent: rhinorrhea, nasal congestion, throat pain, throat swelling, difficulty swallowing, mouth swelling, ear pain, eye pain, visual changes CARDIOVASCULAR: chest pain, pleuritic Absent: syncope, palpitations, irregular heart rate, lightheadedness, peripheral edema RESPIRATORY: dyspnea Absent: cough, dyspnea with exertion, orthopnea, wheezing, stridor, hemoptysis GASTROINTESTINAL: right-side abdominal pain Absent: abdominal distension, nausea, vomiting, diarrhea, constipation, melena, hematochezia GENITOURINARY: Absent: dysuria, frequency, urgency, hesitancy, hematuria, flank pain, genital pain MUSCULOSKELETAL: Absent: myalgia, arthralgia, joint swelling, back pain, neck pain SKIN: Absent: rash, itching, pallor HEMATOLOGIC/IMMUNOLOGIC: Absent: easy bleeding, easy bruising, lymphadenopathy, frequent infections ENDOCRINE: Absent: unexplained weight gain, unexplained weight loss, heat intolerance, cold intolerance NEUROLOGIC: Absent: headache, focal weakness or paresthesias, dizziness, unsteady gait, seizure, mental status changes, bladder or bowel incontinence PSYCHIATRIC: Absent: anxiety, depression, suicidal or homicidal ideation, hallucinations. PHYSICAL EXAMINATION Vital Signs - 24 hr 03/08/19 16:34 Temperature 98.4 F Pulse Rate 88 Respiratory 18 Rate Blood Pressure 129/78 O2 Sat by Pulse 99 Oximetry (%) GENERAL: Awake, alert, and fully oriented, in no acute distress. HEAD: Normal with no signs of trauma. EYES: Pupils equal, round and reactive to light, extraocular movements intact, sclera anicteric, conjunctiva clear. No lid lag. EARS, NOSE, THROAT: Ears normal, nares patent, oropharynx clear without exudates. Moist mucous membranes. NECK: Normal range of motion, supple without lymphadenopathy, JVD, or masses. LUNGS: Breath sounds equal, clear to auscultation bilaterally. No wheezes, and no crackles. No accessory muscle use. HEART: Regular rate and rhythm, normal S1 and S2 without murmur, rub or gallop. ABDOMEN: Right-sided tenderness wtih guarding, soft, not distended, normoactive bowel sounds, no guarding, no rebound, no masses. No hepatomegaly or splenomegaly. MUSCULOSKELETAL: Normal range of motion at all joints. No bony deformities or tenderness. No CVA tenderness. UPPER EXTREMITIES: 2+ pulses, warm, well-perfused. No cyanosis. No clubbing. No peripheral edema. LOWER EXTREMITIES: 2+ pulses, warm, well-perfused. No calf tenderness. No peripheral edema. NEUROLOGICAL: Cranial nerves II-XII intact. Normal speech. Normal gait. PSYCHIATRIC: Cooperative. Good eye contact. Appropriate mood and affect. SKIN: Warm, dry, normal turgor, no rashes or lesions noted, normal capillary refill. Laboratory Results - last 24 hr CBC, BMP 03/08/19 17:00 03/08/19 17:00 Hepatic Panel Total Bilirubin 0.3 mg/dL (0.2-1) AST 54 U/L (15-37) H ALT 98 U/L (13-61) H Alkaline Phosphatase 88 U/L (45-117) Albumin 3.4 g/dl (3.4-5.0) ASSESSMENT/PLAN: Patient is a 58 year old male with PMH of HTN, HLD, CAD s/p 3 stents, CVA (1993 ; without residual deficits), paraoxysmal afib (on eliquis), MICHELLE (s/p nasal surgery and tonsillectomy; no longer on CPAP x7 monhs), GERD, hiatal hernia, BPH , depression, who presents with sudden-onset substernal chest pain for 3 days. #Rule out ACS EKG: NSR, no ischemic changes Trending serial trops - neg CXR: no acute pathology Echo 12/29/18: normal LVF, EF 55-60%, Stress test 12/26/18: no ischemic changes Dr. Calles consulted and recommended observation overnight, will see her in the am Cont home meds: Eliquis 5mg BID and atorvastatin 20mg HS vs. PE (less likely given anticoagulation and clinical presentation) vs. MSK (less likely, no tenderness to palpation) vs. GERD (given hiatal hernia, however, not associated with food) vs. MICHELLE (pt endorses an increase in frequency of his chest pain since he d/c'ed his CPAP machine 7 months ago) Starting protonix 40mg daily for possible relief of pain #RHIANNA BUN/Cr: 22.9, 1.4 (baseline Cr: 1.1) CT abd 2018: right renal pole calculus Hydrate with NS 75 ml/hr Cont to monitor kidney function and trend BUN/Cr Hold home med Valsartan for now #Transaminitis AST/ALT: 54/98 (124/166 on discharge 12/29/18) US abd 12/26/18: hepatic steatosis Pt denies heavy alcohol consumption or hx of liver disease #Eosinophilia Eosinophils: 6.8 (baseline ~8.4) Pt endorses hx of hayfever and multiple season allergies F/u strongyloides and stool O&P #HTN Cont home meds: Chlorathalidone 25mg daily, labetolol 200mg daily Holding valsartan in setting of RHIANNA #Paroxysal Afib Cont home med: eliquis 5mg BID Monitor on tele #BPH Cont home meds tamsulosin 0.4mg daily #FEN IV NS @ 75ml/hr k: 3.2, repleting with 20meq K-dur NPO for now, in case Dr. Stevan hand stress test in am #DVT ppx Pt on eliquis #Dispo Monitor on tele . Visit type - Emergency Visit Emergency Visit: Yes ED Registration Date: 03/08/19 Care time: The patient presented to the Emergency Department on the above date and was hospitalized for further evaluation of their emergent condition. - New Patient This patient is new to me today: Yes Date on this admission: 03/10/19 - Critical Care Critical Care patient: No ATTENDING PHYSICIAN STATEMENT I saw and evaluated the patient. I reviewed the resident's note and discussed the case with the resident. I agree with the resident's findings and plan as documented. SUBJECTIVE: OBJECTIVE: ASSESSMENT AND PLAN:
[2019-03-08] MEDS ORDERED: ATORVASTATIN CA 20 MG TABLET (FP) PO SCH (22:00)
[2019-03-08] MEDS ORDERED: ATORVASTATIN CA 20 MG TABLET (FP) ONE (22:43)
[2019-03-08] MEDS ORDERED: APIXABAN 5 MG TABLET PO ONE (22:43)
[2019-03-08] MEDS: APIXABAN 5 MG TABLET PO SCH (22:46)
[2019-03-08] MEDS ORDERED: IBUPROFEN 600 MG TABLET (FP) PO ONE (22:48)
[2019-03-09 06:55] LABS: BASO % 0.6 % (0-2.0); HEMATOCRIT 41.8 % (35.4-49); HEMOGLOBIN 14.3 GM/dL (11.7-16.9); LYMPH % 28.8 % (8-40); MCH 30.6 pg (25.7-33.7); MCHC 34.1 g/dl (32.0-35.9); MEAN CELL VOLUME 89.7 fl (80-96); MEAN PLT VOLUME 9.8 fl (7.5-11.1); MONO % 7.5 % (3.8-10.2); NEUT % 55.1 % (42.8-82.8); PLATELET COUNT 150 K/MM3 (134-434); RBC 4.66 M/mm3 (4.00-5.60); RDW 12.9 % (11.9-15.9); WHITE BLOOD COUNT 6.7 K/mm3 (4.0-10.0)
[2019-03-09 07:27] LABS: ALBUMIN 3.4 g/dl (3.4-5.0); ALK PHOS 75 U/L (45-117); ANION GAP 10 MMOL/L (8-16); BILIRUBIN,TOTAL 0.5 mg/dL (0.2-1); BLOOD UREA NITROGEN 18.8 mg/dL (7-18); CALCIUM 8.5 mg/dL (8.5-10.1); CHLORIDE 107 mmol/L (98-107); CO2 27 mmol/L (21-32); CREATININE 1.2 mg/dL (0.55-1.3); GLUCOSE,RANDOM 99 mg/dL (74-106); POTASSIUM 3.2 mmol/L (3.5-5.1); SGOT/AST 38 U/L (15-37); SGPT/ALT 73 U/L (13-61); SODIUM 143 mmol/L (136-145); TOT PROT 6.6 g/dl (6.4-8.2)
[2019-03-09] MEDS ORDERED: POTASSIUM CHLORIDE TABS 20 MEQ TABLET.ER (FP) PO ONE ×2 (07:45→09:39)
[2019-03-09] MEDS ORDERED: TAMSULOSIN HCL 0.4 MG CAP PO SCH (08:30)
[2019-03-09] MEDS ORDERED: CHLORTHALIDONE 25 MG TABLET PO SCH (10:00)
[2019-03-09] MEDS ORDERED: PATIENT'S OWN MEDICATION (NON-FORMULARY) (Valsartan/Hydrochlorothiazide [Valsartan-Hctz 32 PO SCH (10:00)
[2019-03-09] MEDS: APIXABAN 5 MG TABLET PO SCH (10:00)
[2019-03-09] MEDS ORDERED: PANTOPRAZOLE 40 MG TABLET (FP) PO SCH (10:00)
[2019-03-09] MEDS ORDERED: GABAPENTIN 300 MG CAPSULE (FP) PO SCH (10:00)
[2019-03-09] MEDS ORDERED: LABETALOL HCL 200 MG TABLET (FP) PO SCH (10:00)
--- NOTE | 2019-03-09 10:12 | CON.CARD ---
Consult Consult Specialty:: cardio - History of Present Illness Chief Complaint: cp History of Present Illness: 58 M here with chest pain. patient well known to me from office. he has known, chronic non-cardiac chest pain syndrome for which prior cath showed normal coronaries--there is no history of CAD. his chest pain syndrome is related to mskel strain from work of breathing due to severe nasal passage obstruction and severe MICHELLE--for past few years it reliably worsens when his cpap use falls off and improves with effective treatment of his MICHELLE. maio for frequent palpitations, isabel with ambulation, and for atypical sob. he is s/p ENT surgery for MICHELLE with residual severe apnea on PSG--being treated by ENT at [facility]. his cpap machine has been broken for 9 months, and he has been trying to obtain replacement via his ENT doctors. his usual sx's have worsened during this time including his atypical cp, his sob , and his palpitations. he's had multiple stress tests for these sx's, all negative. he's also had multiple holters and event monitors for the palpitations, showing no afib. he does have a history of PAFib diagnosed at least once in this hospital--on AC currently his CP is same as chronic sx. present constant, all day x 3d--worse on DOA. +pleuritic exacerbation. NOT related to exertion. also feels sob assctd with it. 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) Cardio/Vascular: Yes: AFIB, CAD, HTN, Other (cardiomyopathy) - Alcohol/Substance Use Hx Alcohol Use: Yes - Smoking History Smoking history: Never smoked Have you smoked in the past 12 months: No Aproximately how many cigarettes per day: 0 Home Medications - Allergies Allergies/Adverse Reactions: Allergies Allergy/AdvReac Type Severity Reaction Status Date / Time No Known Allergies Allergy Verified 03/08/19 17:36 - Home Medications Home Medications: Ambulatory Orders Apixaban [Eliquis -] 5 mg PO BID tablet 12/16/17 Chlorthalidone 25 mg PO DAILY 12/16/17 Gabapentin 300 mg PO DAILY 12/26/18 Labetalol HCl [Normodyne -] 200 mg PO DAILY 12/26/18 Alfuzosin HCl [Uroxatral] 10 mg PO DAILY 03/08/19 Atorvastatin Ca [Lipitor] 20 mg PO HS 03/08/19 Valsartan/Hydrochlorothiazide [Valsartan-Hctz 320-25 mg Tab] 1 tab PO DAILY 06/16 Review of Systems - Review of Systems Constitutional: denies: Chills, Fever Eyes: denies: Eye Pain HENT: denies: Nasal Congestion Neck: denies: Stiffness Cardiovascular: denies: Palpitations Respiratory: denies: Orthopnea, PND Gastrointestinal: denies: Diarrhea, Rectal Bleeding Genitourinary: denies: Burning, Hematuria Musculoskeletal: denies: Muscle Pain Integumentary: denies: Rash Neurological: denies: Numbness, Seizure, Syncope Endocrine: denies: Excessive Sweating Hematology/Lymphatic: denies: Excessive Bleeding Vital Signs: Vital Signs Temperature 98.0 F 03/09/19 06:19 Pulse Rate 76 03/09/19 06:19 Respiratory Rate 17 03/09/19 06:19 Blood Pressure 130/75 03/09/19 06:19 O2 Sat by Pulse Oximetry (%) 99 03/09/19 06:19 Constitutional: Yes: Well Nourished, No Distress Eyes: No: Sclera Icterus HENT: No: Nasal Congestion Neck: No: Decreased ROM Respiratory: Yes: CTA Bilaterally. No: Accessory Muscle Use, Rales, Wheezes Gastrointestinal: Yes: Normal Bowel Sounds. No: Distention, Hepatomegaly, Palpable Mass, Tenderness Cardiovascular: Yes: Regular Rate and Rhythm JVD: No Carotid Bruit: No PMI: Non-Displaced Heart Sounds: Yes: S1, S2. No: Gallop, Rub Murmur: No: Systolic Murmur, Diastolic Murmur Musculoskeletal: Yes: Other (No kyphosis) Extremities: No: Cold, Cyanosis Edema: No Peripheral Pulses: 2+ Left Carotid, 2+ Right Carotid, 2+ Left Doralis Pedis, 2+ Right Dorsalis Pedis Integumentary: No: Jaundice Neurological: Yes: Alert, Oriented (x3) Psychiatric: No: Agitated - Other Data Labs, Other Data: CBC, BMP 03/09/19 06:00 03/09/19 06:00 INR, PTT INR 1.38 (0.83-1.09) H 03/08/19 17:00 Troponin, BNP 03/08/19 03/08/19 17:00 22:55 Troponin I < 0.02 < 0.02 Troponin, BNP 03/08/19 03/08/19 17:00 22:55 Troponin I < 0.02 < 0.02 Assessment/Plan ECG: NSR, WNL (no change vs prior) CXR: cldear lungs/pleura Echo 01/14: nl LV/RV. nl valve fxn Stress MPI 01/14: 6:43 min, no ST changes. no ischemia, normal EF [facility] 2012: <30% stenosis D1 chest pain: -known non-cardiac CP sx related to mskel chest wall strain from work of breathing, worse when MICHELLE tx falls off as currently due to cpap machine not working (see HPI)--same sx presently (including pleuritic exacerbation) -trop neg x 2, ECG normal. no ischemia on nuclear stress test 2 mo ago -no further cardiac workup warranted--ok for d/c from cv point of view HTN: -controlled -cont home meds HPL, elevated AST/LT: -on atorva 20 at home -LFTS hi here, can be worked up as outpt -patient is low ASCVD risk--low threshold to hold statin until LFTs worked up ( sees chumaceiro and lantin as outpt) PAFib: -on eliquis at home--continue same (CHADS VASC 1...i have never heard of prior CVA history though this was documented in the current admit notes, which would make his indication for AC even stronger)
--- NOTE | 2019-03-09 11:15 | EKG ---
Test Reason : Blood Pressure : / mmHG Vent. Rate : 089 BPM Atrial Rate : 089 BPM P-R Int : 148 ms QRS Dur : 110 ms QT Int : 366 ms P-R-T Axes : 067 048 054 degrees QTc Int : 445 ms NORMAL SINUS RHYTHM NONSPECIFIC T WAVE ABNORMALITY ABNORMAL ECG WHEN COMPARED WITH ECG OF 26-DEC-2018 20:12, NO SIGNIFICANT CHANGE WAS FOUND Confirmed by AARON LALA MD ([id number]) on 03/09/2019 11:15:36 AM Referred By: Confirmed By:AARON LALA MD
[2019-03-09] MEDS ORDERED: POTASSIUM CHLORIDE ORAL LIQUID 20 MEQ/15 ML PO ONE (11:49)
--- NOTE | 2019-03-09 11:50 | PN ---
Teaching Attending Note Name of Resident: Luke Powell ATTENDING PHYSICIAN STATEMENT I saw and evaluated the patient. I reviewed the resident's note and discussed the case with the resident. I agree with the resident's findings and plan as documented. SUBJECTIVE:c/o R flank pain and CP. CP mostly resolved but continues to have R flank pain. denies CP, SOB, fever, chills, N/V/C/D OBJECTIVE: Last Vital Signs Temp Pulse Resp BP Pulse Ox 97.6 F 74 18 133/84 94 L 03/09/19 10:34 03/09/19 10:34 03/09/19 10:34 03/09/19 10:34 03/09/19 10:34 general NAD CV S1 S2 RRR no murmur/rub/gallop no chest wall tenderness Lungs CTA B/l no wheezing/rales/rhonchi abdomen soft NT/ND + R CVA tenderness ASSESSMENT AND PLAN: 58yo M with PMH HTN, dyslipidemia, CVA, Afib on eliquis, CAD s/p stent presneted to the ER with CP and R flank pain x4 days 1. r/o ACS- cardiac enzymes neg x2. had negative stress test 3 months ago. likely no further workup at this time. cardio consulted 2. R nephrolithasis- seen on u/s. 6mm. no signs of obstruction or hydro. will liekly pass on its own. encourage po hydration, would hold chlorathiadone for the next few days utnil stone is passed. flomax. strainer to check stone. can f /u urology as outpatient 3. RHIANNA- due to dehyudration. improved. cont po intake. should have lab repeated in a few days 4. transamintiis-trending down from previous hospitalizations. unclear if this has been worked up by PMD. on statin. would cont statin and encourage PMD to workup 5. Hypokalemia- kcl po 6. HTN- controlled. monitor while holding diuretic 7. CVA 8. Afib on elqiuis- cont current treatment 9. can d/c home with close PMD follow up
[2019-03-09] MEDS ORDERED: POTASSIUM CHLORIDE ORAL LIQUID 20 MEQ/15 ML ONE (14:20)
[2019-03-09 14:31] VITALS: BP 123/80; PULSE 86; TEMP 98.1
--- NOTE | 2019-03-09 17:09 | DS ---
Physical Exam: SUBJECTIVE: 58 y/o M w PMH of HTN, HLD, CAD s/p 3 stents, CVA (1993; without residual deficits), afib (on eliquis), MICHELLE (s/p nasal surgery & tonsillectomy; no longer on CPAP x7 monhs), GERD, hiatal hernia, BPH, major depression, who presented with CP and RIGHT flank pain. CP has persisted for 3 days, is substernal, constant, stabbing, non-radiating, NOT assoc. w exertion, and worse with inspiration. Pt was admitted 2 months ago for similar symptoms, at which time a stress test, 26 Dec 2018 showed no acute ischemia and an echo on 29 Dec 2018 showed normal LVF and EF: 55-60%. Flank pain is moderate and he reports it is similar to symptoms last experienced w nephrolithiasis last year. EKG NSR with no ischemic changes, Trop neg x2. Pt was given asa w/o relief of pain. Fluids and bed rest recommended. OBJECTIVE: Vital Signs Temp Pulse Resp BP Pulse Ox 98.1 F 86 20 123/80 98 03/09/19 14:29 03/09/19 14:29 03/09/19 14:29 03/09/19 14:29 03/09/19 14:29 PHYSICAL EXAM GENERAL: The patient is awake, alert, and fully oriented, in no acute distress. HEAD: Normal with no signs of trauma. EYES: STEFANIE, EOMI, sclera anicteric, conjunctiva clear. ENT: Ears normal, nares patent, oropharynx clear without exudates, moist mucous membranes. NECK: Trachea midline, full range of motion, supple. LUNGS: Breath sounds equal, clear to auscultation bilaterally, no wheezes, no crackles, no accessory muscle use. HEART: Regular rate and rhythm, S1, S2 without murmur, rub or gallop. ABDOMEN: Soft, nontender, nondistended, normoactive bowel sounds, no guarding, no rebound, no hepatosplenomegaly, no masses. EXTREMITIES: 2+ pulses, warm, well-perfused, no edema. NEUROLOGICAL: Cranial nerves III through XII grossly intact. Normal speech, gait not observed. PSYCH: Normal mood, normal affect. SKIN: Warm, dry, normal turgor, no rashes or lesions noted. LABS Laboratory Results - last 24 hr 03/08/19 03/08/19 03/08/19 17:00 17:00 17:00 WBC 6.4 RBC 4.70 Hgb 14.6 Hct 42.3 MCV 90.1 MCH 31.1 MCHC 34.5 RDW 13.3 Plt Count 165 MPV 9.7 Absolute Neuts (auto) 3.6 Neutrophils % 56.2 Lymphocytes % 26.6 D Monocytes % 9.6 Eosinophils % 6.8 H Basophils % 0.8 Nucleated RBC % 0 PT with INR INR Sodium 141 Potassium 3.2 L Chloride 104 Carbon Dioxide 30 Anion Gap 7 L BUN 22.9 H Creatinine 1.4 H Est GFR (CKD-EPI)AfAm 64.18 Est GFR (CKD-EPI)NonAf 55.38 POC Glucometer Random Glucose 129 H Calcium 8.5 Magnesium 2.1 Total Bilirubin 0.3 AST 54 H ALT 98 H Alkaline Phosphatase 88 Troponin I < 0.02 Total Protein 7.0 Albumin 3.4 03/08/19 03/08/19 03/09/19 17:00 22:55 06:00 WBC 6.7 RBC 4.66 Hgb 14.3 Hct 41.8 MCV 89.7 MCH 30.6 MCHC 34.1 RDW 12.9 Plt Count 150 MPV 9.8 Absolute Neuts (auto) 3.7 Neutrophils % 55.1 Lymphocytes % 28.8 Monocytes % 7.5 Eosinophils % 8.0 H Basophils % 0.6 Nucleated RBC % 0 PT with INR 16.30 H INR 1.38 H Sodium Potassium Chloride Carbon Dioxide Anion Gap BUN Creatinine Est GFR (CKD-EPI)AfAm Est GFR (CKD-EPI)NonAf POC Glucometer Random Glucose Calcium Magnesium Total Bilirubin AST ALT Alkaline Phosphatase Troponin I < 0.02 Total Protein Albumin 03/09/19 03/09/19 06:00 12:46 WBC RBC Hgb Hct MCV MCH MCHC RDW Plt Count MPV Absolute Neuts (auto) Neutrophils % Lymphocytes % Monocytes % Eosinophils % Basophils % Nucleated RBC % PT with INR INR Sodium 143 Potassium 3.2 L Chloride 107 Carbon Dioxide 27 Anion Gap 10 BUN 18.8 H Creatinine 1.2 Est GFR (CKD-EPI)AfAm 77.33 Est GFR (CKD-EPI)NonAf 66.72 POC Glucometer 104 Random Glucose 99 Calcium 8.5 Magnesium Total Bilirubin 0.5 AST 38 H ALT 73 H Alkaline Phosphatase 75 Troponin I < 0.02 Total Protein 6.6 Albumin 3.4 HOSPITAL COURSE: Date of Admission:03/08/19 58 y/o M w PMH HTN, HLD, CAD s/p 3 stents, CVA (1993; without residual deficits) , afib (on eliquis), MICHELLE (s/p nasal surgery & tonsillectomy; no longer on CPAP x7 monhs), GERD, hiatal hernia, BPH, major depression, who presented with CP and RIGHT flank pain, findings not supportive w ACS, in observation for nephrolithiasis. EKG NSR w no ischemic changes, serial trops NEG x2, CXR NEG, NL echo 12/29/18, NL stress test 12/26/18 w no ischemic changes. Cardiology was on board. During stay pt labs consistent w RHIANNA. BUN/Cr: 22.9/1.4 and he was hydrated w NS. Additionally, labs showed transaminitis, which resolved over time. Home regimen for other chronic conditions were continued. A RIGHT nephrolithasis was seen on u/s: 6mm. There were no signs of obstruction or hydronephrosis. Pt advised that stone will likley pass on its own and recommended adequate hydrate. Strainer offered to check stone. Pt advised to f/ u urology as outpatient. IMAGING 08-Mar-2019 US KIDNEY / RENAL US Right nephrolithiasis and lower pole complex cyst. No evidence of hydronephrosis or obstructive uropathy. Please see above discussion. CR CHEST PA & LAT No acute pathology. No significant change since 12/26/2018. Date of Discharge: 03/09/19 Luke Powell MD Minutes to complete discharge: 50 Discharge Summary Reason For Visit: CHEST PAIN Current Active Problems Chest pain (Acute) Condition: Good - Instructions Diet, Activity, Other Instructions: YOUR VISIT You came to the hospital with chest pain and back pain. Our tests showed that you may be experiencing symptoms related to your kidney stones and not your heart. You were given fluids and pain medication. You currently have a small kidney stone, which should pass on its own. We recommend you drink plenty of fluids. You are now medically clear to go home. MEDICATIONS You may resume your home medications as your doctor prescribed. Alfuzosin 10 mg every day for your prostate Atorvastatin 20 mg at night for your cholesterol Chlorthalidone 25 mg daily for blood pressure Gabapentin 300 mg two times a day for muscle pain Labetalol 200 mg every day for your blood pressure Valsartan/Hydrochlorothiazide 1 tablet every day for your blood pressure Apixaban (Eliquis) 5 mg twice a day to minimize your risk for a stroke ADDITIONAL CARE We recommend that you drink plenty of water. We will give you a filter for you to use when leaving the hospital. Please use this filter to separate. It is important you follow up with a primary care provider 1 week from today. In 1 month from now, you should go to your doctor to have blood drawn to check your kidney function. You should make an appointment to followup with your urologist. ADDITIONAL INFORMATION Please call 911 or come to the emergency department if you feel short of breath , chest pain, loss of energy, headache, fever, chills, abdominal pain, unusual bleeding or any other significant symptoms. Referrals: Edgar Bautista MD [Primary Care Provider] - 1 Week John-Jose G Cr MD [Staff Physician] - Kirk Calles MD [Staff Physician] - Disposition: HOME - Home Medications Comprehensive Discharge Medication List: Ambulatory Orders Apixaban [Eliquis -] 5 mg PO BID tablet 12/16/17 Gabapentin 300 mg PO BID 12/26/18 Labetalol HCl [Normodyne -] 200 mg PO DAILY 12/26/18 Alfuzosin HCl [Uroxatral] 10 mg PO DAILY 03/08/19 Atorvastatin Ca [Lipitor] 20 mg PO HS 03/08/19 Valsartan/Hydrochlorothiazide [Valsartan-Hctz 320-25 mg Tab] 1 tab PO DAILY 06/16 This patient is new to me today: Yes Date on this admission: 03/09/19 Emergency Visit: Yes ED Registration Date: 03/08/19 Care time: The patient presented to the Emergency Department on the above date and was hospitalized for further evaluation of their emergent condition. Critical Care patient: No Total Critical Care Time (in minutes): 40 Critical Care Statement: The care of this patient involved high complexity decision making to prevent further life threatening deterioration of the patient 's condition and/or to evaluate & treat vital organ system(s) failure or risk of failure. - Discharge Referral Referred to [facility] Med P.C.: No ATTENDING PHYSICIAN STATEMENT I saw and evaluated the patient. I reviewed the resident's note and discussed the case with the resident. I agree with the resident's findings and plan as documented. SUBJECTIVE: OBJECTIVE: ASSESSMENT AND PLAN:
--- NOTE | 2019-03-10 11:26 | EKG ---
Test Reason : Blood Pressure : / mmHG Vent. Rate : 073 BPM Atrial Rate : 073 BPM P-R Int : 152 ms QRS Dur : 112 ms QT Int : 390 ms P-R-T Axes : 053 014 029 degrees QTc Int : 429 ms NORMAL SINUS RHYTHM NORMAL ECG WHEN COMPARED WITH ECG OF 08-MAR-2019 16:28, NO SIGNIFICANT CHANGE WAS FOUND Confirmed by Moiz Linares MD ([id number]) on 03/10/2019 11:26:28 AM Referred By: JERMAN ARCE Confirmed By:Moiz Linares MD
== END 2019-03-10 08:32 | disposition home or self-care (01) ==
LOC: JER 16:27 → JERBED 18:20
PROVIDERS: ADMIT Internal Medicine
PROC: 3E0337Z Introduction of Electrolytic and Water Balance Substance into Peripheral Vein, Percutaneous Approach (ICD-10-PCS; principal; 2019-03-08)
DX: R07.89 Other chest pain (principal); I10 Essential (primary) hypertension; E78.5 Hyperlipidemia, unspecified; I48.0 Paroxysmal atrial fibrillation; I25.10 Atherosclerotic heart disease of native coronary artery without angina pectoris; I25.2 Old myocardial infarction; I51.7 Cardiomegaly; G47.33 Obstructive sleep apnea (adult) (pediatric); K21.9 Gastro-esophageal reflux disease without esophagitis; N40.0 Benign prostatic hyperplasia without lower urinary tract symptoms; F32.9 Major depressive disorder, single episode, unspecified; N17.9 Acute kidney failure, unspecified; D72.1 Eosinophilia; R74.0 Nonspecific elevation of levels of transaminase and lactic acid dehydrogenase [LDH]; E87.6 Hypokalemia; Z98.61 Coronary angioplasty status; Z86.73 Personal history of transient ischemic attack (TIA), and cerebral infarction without residual deficits; Z87.442 Personal history of urinary calculi; Z79.01 Long term (current) use of anticoagulants
CPT/HCPCS: 36415; 71046-TC-FY; 76775-TC; 80053; 82962; 83735; 84484; 85025; 85610; 86682; 93005; 93010; 96360; 99285-25; G0378; J7030

== ENCOUNTER 2019-06-15 14:14 | Day surgery (SDC) | payer OTHER ==
[2019-06-12 16:02] VITALS: BMI 30.4
[2019-06-15] MEDS ORDERED: MIDAZOLAM HCL 2 MG/2 ML SINGLE DOSE VIAL ONE ×2 (15:32→15:35)
[2019-06-15 16:25] VITALS: TEMP 98
--- NOTE | 2019-06-15 17:21 | OP ---
Operative Note - Note: Operative Date: 06/15/19 Pre-Operative Diagnosis: right renal stone Operation: right eswl Findings: 6 mm right mid-pole stone Post-Operative Diagnosis: Same as Pre-op Surgeon: Jose G Calloway Anesthesia: Fractional Operative Report Dictated: Yes
[2019-06-15 17:44] VITALS: PULSE 78
[2019-06-15 18:30] VITALS: BP 120/68
--- NOTE | 2019-06-16 13:29 | OP ---
DATE OF OPERATION: 06/15/2019 PREOPERATIVE DIAGNOSIS: Right renal stone. POSTOPERATIVE DIAGNOSIS: Right renal stone. PROCEDURE: Right extracorporeal shock-wave lithotripsy. ATTENDING: Casey Lopez MD ANESTHESIA: Fractional. DESCRIPTION OF PROCEDURE: Patient was brought in the operating room and placed in supine position on the operating room table. Ultrasonography and fluoroscopy were performed. A 6-mm right mid pole stone was identified. Shock-wave lithotripsy was started after anesthesia and antibiotics were administered; 2500 impulses at 17 joules of power were administered to the stone. Excellent fragmentation of the stone was noted. No complications were noted. The patient tolerated the procedure very well. CASEY LOPEZ M.D. [id number]
== END 2019-06-15 18:30 | disposition home or self-care (01) ==
LOC: JASU-SURG 14:14
PROVIDERS: ATTEND Urology
PROC: 0TF3XZZ Fragmentation in Right Kidney Pelvis, External Approach (ICD-10-PCS; principal; 2019-06-15 15:38)
DX: N20.0 Calculus of kidney (principal)

== ENCOUNTER 2020-02-22 10:10 | Day surgery (SDC) | payer OTHER ==
[2020-02-19 16:17] VITALS: BMI 31.8
[2020-02-22] MEDS ORDERED: PROPOFOL 20 ML ONE ×4 (12:35)
[2020-02-22] MEDS ORDERED: ACETAMINOPHEN 325 MG TABLET (FP) PO ONE (14:00)
--- NOTE | 2020-02-22 14:01 | OP ---
Operative Note - Note: Operative Date: 02/22/20 Pre-Operative Diagnosis: Right renal stone Operation: Right ESWL Findings: 6 mm mid pole Right renal stone Post-Operative Diagnosis: Same as Pre-op Surgeon: Jose G Calloway Anesthesia: Regional Estimated Blood Loss (mls): 0 Operative Report Dictated: Yes
[2020-02-22] MEDS ORDERED: ACETAMINOPHEN 325 MG TABLET (FP) ONE (14:29)
[2020-02-22 15:14] VITALS: BP 127/82; PULSE 75; TEMP 98
[2020-02-22] MEDS ORDERED: ACETAMINOPHEN 325 MG TABLET (FP) PO PRN (15:52)
--- NOTE | 2020-02-22 21:17 | OP ---
DATE OF OPERATION: 02/22/2020 PREOPERATIVE DIAGNOSIS: Right renal stone. POSTOPERATIVE DIAGNOSIS: Right renal stone. PROCEDURE: Right extracorporeal shock wave lithotripsy. ATTENDING: Casey Lopez MD ANESTHESIA: Fractional. DESCRIPTION OF PROCEDURE: Patient was brought in the operating room, placed in a supine position on the operating room table. Ultrasonography and fluoroscopy were performed. A 6-mm right midpole stone was identified. At this point, anesthesia and preoperative antibiotics were administered. A 6-mm right midpole stone was identified. Anesthesia and preoperative antibiotics were administered, at which point 2500 impulses at 17 joules of power were administered to the stone, with excellent fragmentation noted on real time ultrasonography and fluoroscopy. There were no complications noted. CASEY LOPEZ M.D. /[id number]
== END 2020-02-22 15:15 | disposition home or self-care (01) ==
LOC: JASU-SURG 10:10
PROVIDERS: ATTEND Urology
PROC: 0TF3XZZ Fragmentation in Right Kidney Pelvis, External Approach (ICD-10-PCS; principal; 2020-02-22 12:00)
DX: N20.0 Calculus of kidney (principal)

== ENCOUNTER 2020-07-20 09:34 | Emergency (ER) | payer OTHER ==
[2020-07-20 09:43] VITALS: BP 158/84; PULSE 78; TEMP 98.4; BMI 31.8
[2020-07-20] MEDS ORDERED: ACETAMINOPHEN 325 MG TABLET (FP) PO ONE (12:37)
[2020-07-20] MEDS ORDERED: ACETAMINOPHEN 325 MG TABLET (FP) ONE ×2 (12:51→14:56)
[2020-07-20 13:43] LABS: BASO % 0.6 % (0-2.0); EOS % 9.4 % (0-4.5); HEMATOCRIT 44.5 % (35.4-49); HEMOGLOBIN 14.6 GM/dL (11.7-16.9); LYMPH % 26.6 % (8-40); MCH 28.8 pg (25.7-33.7); MCHC 32.7 g/dl (32.0-35.9); MEAN CELL VOLUME 88.2 fl (80-96); MONO % 11.4 % (3.8-10.2); PLATELET COUNT 191 K/MM3 (134-434); RBC 5.05 M/mm3 (4.00-5.60); RDW 13.7 % (11.9-15.9); WHITE BLOOD COUNT 7.1 K/mm3 (4.0-10.0)
[2020-07-20 14:01] LABS: CHLORIDE 103 mmol/L (98-107); SODIUM 140 mmol/L (136-145)
[2020-07-20 14:03] LABS: CALCIUM 9.4 mg/dL (8.5-10.1)
[2020-07-20 14:04] LABS: BLOOD UREA NITROGEN 16.4 mg/dL (7-18); GLUCOSE,RANDOM 103 mg/dL (74-106)
[2020-07-20 14:07] LABS: CREATININE 1.2 mg/dL (0.55-1.3); SGPT/ALT 51 U/L (13-61)
[2020-07-20 14:08] LABS: SGOT/AST 26 U/L (15-37)
[2020-07-20 14:09] LABS: TOT PROT 7.7 g/dl (6.4-8.2)
[2020-07-20 14:10] LABS: ALK PHOS 64 U/L (45-117)
[2020-07-20 14:12] LABS: ANION GAP 3 MMOL/L (8-16); BILIRUBIN,TOTAL 0.5 mg/dL (0.2-1); CO2 33 mmol/L (21-32)
== END 2020-07-20 15:07 | disposition home or self-care (01) ==
LOC: JER 09:34
DX: R07.9 Chest pain, unspecified (principal)
CPT/HCPCS: 36415; 71046-TC-FY; 80053; 84484; 85025; 93005; 93010; 99284-25

== ENCOUNTER 2021-03-20 04:26 | Day surgery (SDC) | payer OTHER ==
[2021-03-17 16:54] VITALS: BMI 31.8
[2021-03-20] MEDS ORDERED: PROPOFOL 20 ML ONE ×2 (07:26)
[2021-03-20] MEDS ORDERED: ONDANSETRON 4 MG/2 ML VIAL IVPUSH PRN (10:18)
[2021-03-20] MEDS ORDERED: ACETAMINOPHEN 325 MG TABLET (FP) PO PRN (10:18)
[2021-03-20] MEDS ORDERED: LACTATED RINGERS SOLUTION 1,000 ML IV SCH (10:30)
[2021-03-20] MEDS ORDERED: ACETAMINOPHEN 325 MG TABLET (FP) ONE (12:32)
[2021-03-20 13:30] VITALS: BP 123/66; PULSE 72; TEMP 97.2
== END 2021-03-20 13:30 | disposition home or self-care (01) ==
LOC: JASU-SURG 04:26
PROVIDERS: ATTEND Urology
PROC: 0TF3XZZ Fragmentation in Right Kidney Pelvis, External Approach (ICD-10-PCS; principal; 2021-03-20 10:00)
DX: N20.0 Calculus of kidney (principal)

== ENCOUNTER 2021-07-25 17:03 | Observation (INO) | payer OTHER ==
[2021-07-25] MEDS ORDERED: SODIUM CHLORIDE 0.9% 500 ML INFUS.BAG IV ONE (19:55)
[2021-07-25] MEDS ORDERED: ACETAMINOPHEN 1000 MG/100 ML BAG IVPB ONE ×2 (20:00→20:34)
[2021-07-25] MEDS ORDERED: ACETAMINOPHEN INJECTION 100 ML IVPB ONE (20:01)
[2021-07-25] MEDS ORDERED: morphine CARPU-JECT 4 MG/1 ML DISP.SYRIN IVPUSH ONE (20:11)
[2021-07-25] MEDS ORDERED: morphine SULFATE 4 MG/ML VIAL ONE (20:35)
[2021-07-25 21:08] LABS: BASO % 0.4 % (0-2.0); EOS % 10.5 % (0-4.5); HEMATOCRIT 38.2 % (35.4-49); HEMOGLOBIN 12.9 GM/dL (11.7-16.9); LYMPH % 24.7 % (8-40); MCH 29.5 pg (25.7-33.7); MCHC 33.9 g/dl (32.0-35.9); MEAN CELL VOLUME 87.1 fl (80-96); MEAN PLT VOLUME 9.5 fl (7.5-11.1); MONO % 11.1 % (3.8-10.2); NEUT % 53.3 % (42.8-82.8); PLATELET COUNT 201 10^3/uL (134-434); RBC 4.38 M/mm3 (4.00-5.60); RDW 12.9 % (11.9-15.9); WHITE BLOOD COUNT 7.3 K/mm3 (4.0-10.0)
[2021-07-25 21:29] LABS: CHLORIDE 102 mmol/L (98-107)
[2021-07-25 21:31] LABS: CALCIUM 8.5 mg/dL (8.5-10.1)
[2021-07-25 21:32] LABS: ALBUMIN 2.9 g/dl (3.4-5.0); BLOOD UREA NITROGEN 13.9 mg/dL (7-18); CO2 27 mmol/L (21-32); GLUCOSE,RANDOM 88 mg/dL (74-106); MAGNESIUM 2.9 mg/dL (1.8-2.4)
[2021-07-25 21:35] LABS: CREATININE 1.3 mg/dL (0.55-1.3)
[2021-07-25 21:43] LABS: EPI CELLS 3 /uL (0-25.1); HYALINE CASTS 1 /uL (0-3.1); PH,URINE 5.5 (5.0-8.0); URINE APPEARANCE CLEAR; URINE BACTERIA 0 /uL (0-1359); URINE BILIRUBIN NEGATIVE (NEGATIVE); URINE COLOR YELLOW; URINE GLUCOSE (UA) NEGATIVE (NEGATIVE); URINE KETONE NEGATIVE (NEGATIVE); URINE LEUK ESTERASE NEGATIVE (NEGATIVE); URINE NITRITE NEGATIVE (NEGATIVE); URINE PROTEIN 1+ (NEGATIVE); URINE RBC 4 /uL (0-23.9); URINE WBC 3 /uL (0-25.8)
[2021-07-25 22:23] LABS: ANION GAP -12 MMOL/L (8-16); SODIUM 117 mmol/L (136-145)
[2021-07-25 23:10] LABS: ALBUMIN 3.2 g/dl (3.4-5.0); BLOOD UREA NITROGEN 13.7 mg/dL (7-18); CALCIUM 8.1 mg/dL (8.5-10.1)
[2021-07-25 23:13] LABS: CREATININE 1.3 mg/dL (0.55-1.3)
[2021-07-25 23:15] LABS: BILIRUBIN,TOTAL 0.3 mg/dL (0.2-1)
[2021-07-25 23:42] LABS: TOT PROT 6.8 g/dl (6.4-8.2)
[2021-07-26] MEDS ORDERED: ASPIRIN 81 MG CHEWABLE TABLETS PO ONE (00:30)
[2021-07-26] MEDS ORDERED: ASPIRIN 81 MG CHEWABLE TABLETS ONE (01:06)
[2021-07-26] MEDS ORDERED: GLYCERIN 1 RECTAL SUPPOSITORY, ADULT RC ONE (03:05)
[2021-07-26] MEDS ORDERED: SIMETHICONE 80 MG TAB.CHEW (FP) PO PRN (03:06)
[2021-07-26] MEDS ORDERED: PATIENT'S OWN MEDICATION (NON-FORMULARY) (Fenofibrate [Fenofibrate] 150 MG Capsule) PO SCH (03:30)
[2021-07-26 08:10] LABS: BASO % 0.7 % (0-2.0); EOS % 12.1 % (0-4.5); HEMATOCRIT 37.1 % (35.4-49); HEMOGLOBIN 12.7 GM/dL (11.7-16.9); LYMPH % 27.4 % (8-40); MCH 29.8 pg (25.7-33.7); MCHC 34.1 g/dl (32.0-35.9); MEAN CELL VOLUME 87.3 fl (80-96); MEAN PLT VOLUME 9.6 fl (7.5-11.1); MONO % 11.4 % (3.8-10.2); NEUT % 48.4 % (42.8-82.8); PLATELET COUNT 174 10^3/uL (134-434); RBC 4.25 M/mm3 (4.00-5.60); RDW 12.9 % (11.9-15.9); WHITE BLOOD COUNT 6.2 K/mm3 (4.0-10.0)
[2021-07-26 08:25] LABS: CHLORIDE 109 mmol/L (98-107); SODIUM 140 mmol/L (136-145)
[2021-07-26 08:28] LABS: CALCIUM 8.3 mg/dL (8.5-10.1)
[2021-07-26 08:29] LABS: ALBUMIN 3.2 g/dl (3.4-5.0); ANION GAP 8 MMOL/L (8-16); BLOOD UREA NITROGEN 12.5 mg/dL (7-18); CO2 23 mmol/L (21-32); GLUCOSE,RANDOM 93 mg/dL (74-106); LIPASE 73 U/L (73-393); MAGNESIUM 2.1 mg/dL (1.8-2.4)
[2021-07-26 08:31] LABS: SGPT/ALT 24 U/L (13-61)
[2021-07-26 08:32] LABS: CREATININE 1.1 mg/dL (0.55-1.3); SGOT/AST 18 U/L (15-37)
[2021-07-26 08:33] LABS: BILIRUBIN,TOTAL 0.7 mg/dL (0.2-1); TOT PROT 6.8 g/dl (6.4-8.2)
[2021-07-26 08:34] LABS: ALK PHOS 51 U/L (45-117)
[2021-07-26] MEDS ORDERED: POLYETHYLENE GLYCOL (HEALTHYLAX) 3350 17 GM PACKET PO SCH (10:00)
[2021-07-26] MEDS ORDERED: ENOXAPARIN NA (PORCINE) 40 MG/0.4 ML DISP.SYRIN SQ SCH (10:00)
[2021-07-26] MEDS ORDERED: LABETALOL HCL 100 MG TABLET (FP) ONE (10:39)
[2021-07-26] MEDS ORDERED: POLYETHYLENE GLYCOL (HEALTHYLAX) 3350 17 GM PACKET ONE ×2 (10:39→17:20)
[2021-07-26] MEDS ORDERED: TAMSULOSIN HCL 0.4 MG CAP ONE (10:40)
[2021-07-26] MEDS ORDERED: APIXABAN 5 MG TABLET ONE (10:40)
[2021-07-26] MEDS ORDERED: amLODIPine BESYLATE 5 MG TABLET (FP) ONE (10:40)
[2021-07-26] MEDS ORDERED: PANTOPRAZOLE 40 MG TABLET ONE (10:40)
[2021-07-26] MEDS ORDERED: POTASSIUM CHLORIDE TABS 20 MEQ TABLET.ER (FP) PO ONE ×2 (10:44→17:18)
[2021-07-26] MEDS: amLODIPine BESYLATE 5 MG TABLET (FP) PO SCH (10:52)
[2021-07-26] MEDS: VALSARTAN 160 MG TABLET PO SCH (10:52)
[2021-07-26] MEDS: LABETALOL HCL 100 MG TABLET (FP) PO SCH ×2 (10:52→21:31)
[2021-07-26] MEDS: TAMSULOSIN HCL 0.4 MG CAP PO SCH (10:52)
[2021-07-26] MEDS: APIXABAN 5 MG TABLET PO SCH ×2 (10:52→21:31)
[2021-07-26] MEDS: PANTOPRAZOLE 40 MG TABLET PO SCH (10:52)
[2021-07-26] MEDS: POLYETHYLENE GLYCOL (HEALTHYLAX) 3350 17 GM PACKET PO SCH ×2 (17:23→21:31)
[2021-07-26] MEDS ORDERED: ATORVASTATIN CA 20 MG TABLET (FP) PO SCH (22:00)
[2021-07-26] MEDS ORDERED: SENNOSIDES 8.6MG TABLET (FP) PO SCH (22:00)
[2021-07-27 00:18] VITALS: BMI 31.5
[2021-07-27] MEDS: POLYETHYLENE GLYCOL (HEALTHYLAX) 3350 17 GM PACKET PO SCH ×2 (05:21→14:50)
[2021-07-27 08:25] LABS: HEMATOCRIT 39.5 % (35.4-49); HEMOGLOBIN 13.3 GM/dL (11.7-16.9); MCH 29.3 pg (25.7-33.7); MCHC 33.7 g/dl (32.0-35.9); MEAN CELL VOLUME 87.1 fl (80-96); MEAN PLT VOLUME 9.9 fl (7.5-11.1); PLATELET COUNT 182 10^3/uL (134-434); RBC 4.54 M/mm3 (4.00-5.60); RDW 12.7 % (11.9-15.9); WHITE BLOOD COUNT 6.2 K/mm3 (4.0-10.0)
[2021-07-27 09:04] LABS: BLOOD UREA NITROGEN 12.3 mg/dL (7-18); MAGNESIUM 2.5 mg/dL (1.8-2.4)
[2021-07-27] MEDS: PANTOPRAZOLE 40 MG TABLET PO SCH (09:19)
[2021-07-27] MEDS: amLODIPine BESYLATE 5 MG TABLET (FP) PO SCH (09:19)
[2021-07-27] MEDS: APIXABAN 5 MG TABLET PO SCH (09:19)
[2021-07-27] MEDS: LABETALOL HCL 100 MG TABLET (FP) PO SCH (09:19)
[2021-07-27] MEDS: VALSARTAN 160 MG TABLET PO SCH (09:19)
[2021-07-27] MEDS: TAMSULOSIN HCL 0.4 MG CAP PO SCH (09:19)
[2021-07-27] MEDS ORDERED: FLU VACC QS2021-22(6MOS UP)/PF 60 MCG/0.5 ML SYRINGE IM ONE (10:00)
[2021-07-27] MEDS ORDERED: POTASSIUM CHLORIDE TABS 20 MEQ TABLET.ER (FP) PO ONE (11:08)
[2021-07-27 14:22] VITALS: BP 124/70; PULSE 77; TEMP 98.3
== END 2021-07-27 18:03 | disposition home or self-care (01) ==
LOC: JER 17:03 → JERBED 07-26 00:25 → J4W 07-26 21:11
PROVIDERS: ADMIT Hospitalist
PROC: 3E033NZ Introduction of Analgesics, Hypnotics, Sedatives into Peripheral Vein, Percutaneous Approach (ICD-10-PCS; principal; 2021-07-26)
PROC: 3E0234Z Introduction of Serum, Toxoid and Vaccine into Muscle, Percutaneous Approach (ICD-10-PCS; 2021-07-26)
PROC: 3E033NZ Introduction of Analgesics, Hypnotics, Sedatives into Peripheral Vein, Percutaneous Approach (ICD-10-PCS; 2021-07-26)
DX: I25.10 Atherosclerotic heart disease of native coronary artery without angina pectoris (principal); M54.9 Dorsalgia, unspecified; R10.9 Unspecified abdominal pain; I10 Essential (primary) hypertension; I42.9 Cardiomyopathy, unspecified; Z91.09 Other allergy status, other than to drugs and biological substances; Z88.8 Allergy status to other drugs, medicaments and biological substances; Z86.73 Personal history of transient ischemic attack (TIA), and cerebral infarction without residual deficits; N20.0 Calculus of kidney; I48.0 Paroxysmal atrial fibrillation; G47.33 Obstructive sleep apnea (adult) (pediatric); Z99.81 Dependence on supplemental oxygen; G89.29 Other chronic pain; Z79.01 Long term (current) use of anticoagulants
CPT/HCPCS: 36415; 71046-TC-FY; 74176-TC; 76705-TC; 80048; 80053; 81003; 82550; 82962; 83605; 83690; 83735; 84484; 85025; 85027; 90686; 93005; 93010; 93306-TC; 96372; 96374; 96375; 99285-25; C9803; G0378; J0131; U0003; U0005

== ENCOUNTER 2021-10-30 04:30 | Day surgery (SDC) | payer OTHER ==
[2021-10-27 09:58] VITALS: BMI 30.2
[2021-10-30] MEDS ORDERED: MIDAZOLAM HCL 2 MG/2 ML SINGLE DOSE VIAL ONE (14:59)
[2021-10-30] MEDS ORDERED: PROPOFOL 20 ML ONE (14:59)
[2021-10-30 17:04] VITALS: BP 124/78; PULSE 71; TEMP 97.1
== END 2021-10-30 16:50 | disposition home or self-care (01) ==
LOC: JASU-SURG 04:30
PROVIDERS: ATTEND Urology
PROC: 0TF3XZZ Fragmentation in Right Kidney Pelvis, External Approach (ICD-10-PCS; principal; 2021-10-30 14:30)
DX: N20.0 Calculus of kidney (principal)

== ENCOUNTER 2022-05-30 21:48 | Observation (INO) | payer OTHER ==
[2022-05-30 21:55] VITALS: BMI 31.1
[2022-05-30] MEDS ORDERED: ASPIRIN 81 MG CHEWABLE TABLETS PO ONE (23:23)
[2022-05-30] MEDS ORDERED: ACETAMINOPHEN 1000 MG/100 ML BAG IVPB ONE (23:26)
[2022-05-30] MEDS ORDERED: ACETAMINOPHEN INJECTION 100 ML IVPB ONE (23:29)
[2022-05-30] MEDS ORDERED: ASPIRIN 81 MG CHEWABLE TABLETS ONE (23:29)
[2022-05-30 23:35] LABS: BASO % 0.4 % (0-2.0); EOS % 3.1 % (0-4.5); HEMOGLOBIN 12.2 GM/dL (11.7-16.9); LYMPH % 31.7 % (8-40); MCH 29.8 pg (25.7-33.7); MCHC 33.9 g/dl (32.0-35.9); MONO % 12.8 % (3.8-10.2); PLATELET COUNT 173 10^3/uL (134-434); RBC 4.09 M/mm3 (4.00-5.60); RDW 13.2 % (11.9-15.9); WHITE BLOOD COUNT 6.3 K/mm3 (4.0-10.0)
[2022-05-30 23:47] LABS: INR 1.21 (0.83-1.09); PROTHROMBIN TIME (PATIENT) 13.9 SEC (9.7-13.0)
[2022-05-30 23:50] LABS: ACTIVATED PTT 34.1 SECONDS (25.2-36.5)
[2022-05-31 00:02] LABS: CALCIUM 8.8 mg/dL (8.5-10.1)
[2022-05-31 00:04] LABS: ALBUMIN 3.4 g/dl (3.4-5.0); BLOOD UREA NITROGEN 13.2 mg/dL (7-18); MAGNESIUM 2.1 mg/dL (1.8-2.4)
[2022-05-31 00:07] LABS: CREATININE 1.2 mg/dL (0.55-1.3)
[2022-05-31 00:09] LABS: BILIRUBIN,TOTAL 0.2 mg/dL (0.2-1); TOT PROT 6.6 g/dl (6.4-8.2)
[2022-05-31] MEDS ORDERED: DOCUSATE SODIUM 100 MG CAPSULE (FP) PO PRN (02:19)
[2022-05-31] MEDS ORDERED: ACETAMINOPHEN 325 MG TABLET (FP) PO PRN (02:19)
[2022-05-31] MEDS ORDERED: LIDOCAINE VISCOUS 2% ORAL/TOP 15 ML UNIT-DOSE CUP ONE (03:28)
[2022-05-31] MEDS ORDERED: MAG HYDROX/AL HYDROX/SIMETH 30 ML UNIT-DOSE CUP ONE (03:28)
[2022-05-31] MEDS ORDERED: PANTOPRAZOLE SODIUM 40 MG VIAL IVPUSH ONE (03:36)
[2022-05-31] MEDS ORDERED: GABAPENTIN 300 MG CAPSULE PO PRN (03:36)
[2022-05-31] MEDS ORDERED: APIXABAN 5 MG TABLET ONE (09:42)
[2022-05-31] MEDS ORDERED: amLODIPine BESYLATE 5 MG TABLET (FP) ONE (09:42)
[2022-05-31] MEDS ORDERED: VALSARTAN 80 MG TABLET ONE (09:43)
[2022-05-31] MEDS ORDERED: LABETALOL HCL 100 MG TABLET (FP) ONE (09:43)
[2022-05-31] MEDS ORDERED: LABETALOL HCL 100 MG TABLET (FP) PO SCH (10:00)
[2022-05-31] MEDS ORDERED: VALSARTAN 160 MG TABLET PO SCH (10:00)
[2022-05-31] MEDS ORDERED: amLODIPine BESYLATE 5 MG TABLET (FP) PO SCH (10:00)
[2022-05-31] MEDS ORDERED: APIXABAN 5 MG TABLET PO SCH (10:00)
[2022-05-31 10:47] VITALS: RESP 16
[2022-05-31 13:59] VITALS: BP 139/81; PULSE 70; TEMP 98.2
[2022-05-31] MEDS ORDERED: MELATONIN 5 MG TABLETS PO SCH (22:00)
[2022-05-31] MEDS ORDERED: ROSUVASTATIN CA 10 MG TABLET PO SCH (22:00)
== END 2022-05-31 14:12 | disposition home or self-care (01) ==
LOC: JER 21:48 → JERBED 05-31 02:18
PROVIDERS: ADMIT Internal Medicine; ATTEND Family Medicine
PROC: 3E033NZ Introduction of Analgesics, Hypnotics, Sedatives into Peripheral Vein, Percutaneous Approach (ICD-10-PCS; principal; 2022-05-31)
PROC: 3E033GC Introduction of Other Therapeutic Substance into Peripheral Vein, Percutaneous Approach (ICD-10-PCS; 2022-05-31)
DX: I48.91 Unspecified atrial fibrillation (principal); I10 Essential (primary) hypertension; E78.5 Hyperlipidemia, unspecified; G47.33 Obstructive sleep apnea (adult) (pediatric); Z99.81 Dependence on supplemental oxygen; Z79.01 Long term (current) use of anticoagulants; Z88.8 Allergy status to other drugs, medicaments and biological substances; Z91.09 Other allergy status, other than to drugs and biological substances; Z86.73 Personal history of transient ischemic attack (TIA), and cerebral infarction without residual deficits
CPT/HCPCS: 0241U-QW; 36415; 71045-TC-FY; 80053; 83735; 83880; 84484; 85025; 85610; 85730; 93005; 93010; 99285-25; G0378

== ENCOUNTER 2022-11-12 03:55 | Day surgery (SDC) | payer OTHER ==
[2022-11-08 12:27] VITALS: BMI 29.2
[2022-11-12] MEDS ORDERED: MIDAZOLAM HCL 2 MG/2 ML SINGLE DOSE VIAL ONE ×2 (08:56→09:01)
[2022-11-12 10:58] VITALS: RESP 18
[2022-11-12 11:04] VITALS: BP 139/89; PULSE 74; TEMP 98.2
== END 2022-11-12 10:47 | disposition home or self-care (01) ==
LOC: JASU-SURG 03:55
PROVIDERS: ATTEND Urology
PROC: 0TF3XZZ Fragmentation in Right Kidney Pelvis, External Approach (ICD-10-PCS; principal; 2022-11-12 08:30)
DX: N20.0 Calculus of kidney (principal)

== ENCOUNTER 2023-04-13 09:01 | Emergency (ER) | payer OTHER ==
[2023-04-13 09:05] VITALS: BP 146/74; PULSE 88; RESP 20; TEMP 98; BMI 30.1
[2023-04-13] MEDS ORDERED: KETOROLAC TROMETHAMINE 30 MG/1 ML VIAL IVPUSH ONE (09:52)
[2023-04-13] MEDS ORDERED: SODIUM CHLORIDE 0.9% 500 ML INFUS.BAG IV ONE (09:52)
[2023-04-13] MEDS ORDERED: KETOROLAC TROMETHAMINE 30 MG/1 ML VIAL ONE (09:57)
[2023-04-13 10:07] LABS: PH,URINE 5.5 (5.0-8.0); URINE APPEARANCE CLEAR; URINE BILIRUBIN NEGATIVE (NEGATIVE); URINE COLOR YELLOW; URINE GLUCOSE (UA) NEGATIVE (NEGATIVE); URINE KETONE NEGATIVE (NEGATIVE); URINE LEUK ESTERASE NEGATIVE (NEGATIVE); URINE NITRITE NEGATIVE (NEGATIVE); URINE PROTEIN TRACE (NEGATIVE); URINE UROBILINOGEN 0.2 mg/dL (0.2-1.0)
[2023-04-13 10:09] LABS: BASO % 0.4 % (0-2.0); EOS % 3.4 % (0-4.5); HEMATOCRIT 39.5 % (35.4-49); HEMOGLOBIN 13.1 GM/dL (11.7-16.9); LYMPH % 22.6 % (8-40); MCH 29.2 pg (25.7-33.7); MCHC 33.1 g/dl (32.0-35.9); MEAN CELL VOLUME 88.2 fl (80-96); MEAN PLT VOLUME 9.6 fl (7.5-11.1); MONO % 9.9 % (3.8-10.2); NEUT % 63.7 % (42.8-82.8); PLATELET COUNT 172 10^3/uL (134-434); RBC 4.48 M/mm3 (4.00-5.60); RDW 13.1 % (11.9-15.9); WHITE BLOOD COUNT 5.4 K/mm3 (4.0-10.0)
[2023-04-13 10:30] LABS: POTASSIUM 3.6 mmol/L (3.5-5.1)
[2023-04-13 10:33] LABS: ALBUMIN 3.7 g/dl (3.4-5.0); BLOOD UREA NITROGEN 12.8 mg/dL (7-18); CALCIUM 8.5 mg/dL (8.5-10.1)
[2023-04-13 10:35] LABS: CREATININE 1.2 mg/dL (0.55-1.3)
[2023-04-13 10:37] LABS: BILIRUBIN,TOTAL 0.4 mg/dL (0.2-1); TOT PROT 7.1 g/dl (6.4-8.2)
[2023-04-13] MEDS ORDERED: TAMSULOSIN HCL 0.4 MG CAP PO ONE (12:40)
[2023-04-13] MEDS ORDERED: TAMSULOSIN HCL 0.4 MG CAP ONE (12:49)
== END 2023-04-13 12:55 | disposition home or self-care (01) ==
LOC: JER 09:01
PROC: 3E033NZ Introduction of Analgesics, Hypnotics, Sedatives into Peripheral Vein, Percutaneous Approach (ICD-10-PCS; principal; 2023-04-13)
DX: R10.31 Right lower quadrant pain (principal); N20.0 Calculus of kidney
CPT/HCPCS: 36415; 80053; 81003; 85025; 87086; 99284-25

== ENCOUNTER 2023-06-07 09:43 | Emergency (ER) | payer OTHER ==
[2023-06-07 09:58] VITALS: BP 157/88; PULSE 75; RESP 18; TEMP 98.2; BMI 29.7
[2023-06-07] MEDS ORDERED: ACETAMINOPHEN 500 MG TABLET (FP) PO ONE (12:10)
[2023-06-07] MEDS ORDERED: ACETAMINOPHEN 325 MG TABLET (FP) ONE (12:30)
[2023-06-07 12:53] LABS: BASO % 0.5 % (0-2.0); EOS % 2.5 % (0-4.5); HEMOGLOBIN 13.4 GM/dL (11.7-16.9); LYMPH % 24.4 % (8-40); MCH 28.7 pg (25.7-33.7); MCHC 31.9 g/dl (32.0-35.9); MEAN CELL VOLUME 90.2 fl (80-96); MEAN PLT VOLUME 10.4 fl (7.5-11.1); MONO % 8.4 % (3.8-10.2); NEUT % 64.2 % (42.8-82.8); PLATELET COUNT 161 10^3/uL (134-434); RBC 4.65 M/mm3 (4.00-5.60); RDW 13.1 % (11.9-15.9); WHITE BLOOD COUNT 5.9 K/mm3 (4.0-10.0)
[2023-06-07 13:19] LABS: CALCIUM 9.1 mg/dL (8.5-10.1)
[2023-06-07 13:20] LABS: ALBUMIN 3.6 g/dl (3.4-5.0); BLOOD UREA NITROGEN 13.3 mg/dL (7-18)
[2023-06-07 13:25] LABS: BILIRUBIN,TOTAL 0.5 mg/dL (0.2-1); TOT PROT 7.2 g/dl (6.4-8.2)
[2023-06-07 13:26] LABS: POTASSIUM 3.9 mmol/L (3.5-5.1)
== END 2023-06-07 13:30 | disposition left against medical advice (07) ==
LOC: JER 09:43
DX: R07.9 Chest pain, unspecified (principal); R06.02 Shortness of breath; R51.9 Headache, unspecified; I10 Essential (primary) hypertension
CPT/HCPCS: 71046-TC-FY; 80053; 84484; 85025; 93005; 93010; 99285-25

== ENCOUNTER 2023-06-24 04:02 | Day surgery (SDC) | payer OTHER ==
[2023-06-17 12:11] VITALS: BMI 29.2
[2023-06-24] MEDS ORDERED: FENTANYL CITRATE/PF 50 MCG/ML VIAL ONE ×4 (10:56→11:16)
[2023-06-24] MEDS ORDERED: MIDAZOLAM HCL 2 MG/2 ML SINGLE DOSE VIAL ONE ×2 (10:56→11:11)
[2023-06-24 11:35] VITALS: BP 128/72; PULSE 82; RESP 14; TEMP 97.3
== END 2023-06-24 13:50 | disposition home or self-care (01) ==
LOC: JASU-SURG 04:02
PROVIDERS: ATTEND Urology
PROC: 0TF3XZZ Fragmentation in Right Kidney Pelvis, External Approach (ICD-10-PCS; principal; 2023-06-24 10:30)
DX: N20.0 Calculus of kidney (principal)

== ENCOUNTER 2023-11-04 03:55 | Day surgery (SDC) | payer OTHER ==
[2023-10-29 15:12] VITALS: BMI 30.1
[2023-11-04] MEDS ORDERED: BUPIVACAINE HCL/PF 0.25% (2.5MG/ML) 10 ML VIAL ONE (09:36)
[2023-11-04] MEDS ORDERED: FENTANYL CITRATE/PF 50 MCG/ML VIAL ONE ×5 (10:21→13:55)
[2023-11-04] MEDS ORDERED: PROPOFOL 20 ML ONE ×3 (10:22→11:56)
[2023-11-04] MEDS ORDERED: MIDAZOLAM HCL 2 MG/2 ML SINGLE DOSE VIAL ONE (10:22)
[2023-11-04] MEDS ORDERED: SEVOFLURANE 250 ML BTL ONE (10:22)
[2023-11-04] MEDS ORDERED: DEXAMETHASONE SOD PHOSPHATE 4 MG/1 ML VIAL ONE ×2 (10:30→10:58)
[2023-11-04] MEDS ORDERED: ONDANSETRON 4 MG/2 ML VIAL ONE (10:30)
[2023-11-04] MEDS ORDERED: LIDOCAINE HCL/PF 2% SDV 5ML VIAL ONE (10:30)
[2023-11-04] MEDS ORDERED: KETOROLAC TROMETHAMINE 30 MG/1 ML VIAL ONE (10:30)
[2023-11-04] MEDS ORDERED: ACETAMINOPHEN INJECTION 100 ML IVPB ONE (10:31)
[2023-11-04] MEDS ORDERED: SUCCINYLCHOLINE CHLORIDE 200 MG/10 ML SYRINGE ONE (10:50)
[2023-11-04] MEDS ORDERED: cefOXitin SODIUM 2 GM VIAL (RESTRICTED TO ID) IVPB ONE (10:57)
[2023-11-04] MEDS: cefOXitin SODIUM 2 GM VIAL (RESTRICTED TO ID) IVPB ONE (10:58)
[2023-11-04] MEDS: BUPIVACAINE HCL/PF 2.5 MG/ML - 30 ML VIAL IJ ONE (11:27)
[2023-11-04] MEDS ORDERED: ALBUTEROL SO4 HFA INHALER IH ONE (11:44)
[2023-11-04] MEDS ORDERED: oxyCODONE HCL 5 MG TABLET PO PRN ×2 (12:23)
[2023-11-04] MEDS ORDERED: ONDANSETRON 4 MG/2 ML VIAL IVPUSH PRN (12:23)
[2023-11-04] MEDS ORDERED: LACTATED RINGERS SOLUTION 1,000 ML IV SCH (12:30)
[2023-11-04 17:06] VITALS: RESP 16; TEMP 97.1
[2023-11-04] MEDS ORDERED: oxyCODONE HCL 5 MG TABLET ONE (17:07)
[2023-11-04] MEDS: oxyCODONE HCL 5 MG TABLET PO ONE (17:20)
[2023-11-04 18:38] VITALS: BP 158/80; PULSE 84
== END 2023-11-04 18:20 | disposition home or self-care (01) ==
LOC: JASU-SURG 03:55
PROVIDERS: ATTEND Surgery
PROC: 06BY0ZC Excision of Hemorrhoidal Plexus, Open Approach (ICD-10-PCS; principal; 2023-11-04 10:00)
DX: K64.3 Fourth degree hemorrhoids (principal)
CPT/HCPCS: 86850; 86900; 86901; 88304-TC; 94010; 94760; J0131

== ENCOUNTER 2023-11-05 07:56 | Emergency (ER) | payer OTHER ==
[2023-11-05] MEDS: morphine CARPU-JECT 2 MG/1 ML DISP.SYRIN IM ONE (08:37)
[2023-11-05 09:50] VITALS: TEMP 98.6; BMI 28.8
[2023-11-05 09:50] LABS: BASO % 0.1 % (0-2.0); HEMATOCRIT 37.3 % (35.4-49); HEMOGLOBIN 12.1 GM/dL (11.7-16.9); LYMPH % 8.1 % (8-40); MCH 28.1 pg (25.7-33.7); MCHC 32.5 g/dl (32.0-35.9); MEAN CELL VOLUME 86.6 fl (80-96); MEAN PLT VOLUME 10.3 fl (7.5-11.1); MONO % 9.6 % (3.8-10.2); NEUT % 82.2 % (42.8-82.8); PLATELET COUNT 180 10^3/uL (134-434); RBC 4.31 M/mm3 (4.00-5.60); RDW 15.2 % (11.9-15.9)
[2023-11-05 09:52] LABS: INR 1.03 (0.83-1.09); PROTHROMBIN TIME (PATIENT) 11.9 SEC (9.7-13.0)
[2023-11-05 09:54] LABS: ACTIVATED PTT 26.8 SECONDS (25.2-36.5)
[2023-11-05 09:57] VITALS: RESP 18
[2023-11-05 10:01] LABS: POTASSIUM 4.1 mmol/L (3.5-5.1)
[2023-11-05 10:03] LABS: ALBUMIN 3.6 g/dl (3.4-5.0); CALCIUM 9.7 mg/dL (8.5-10.1)
[2023-11-05 10:04] LABS: BLOOD UREA NITROGEN 18.5 mg/dL (7-18)
[2023-11-05 10:07] LABS: CREATININE 1.2 mg/dL (0.55-1.3)
[2023-11-05 10:08] LABS: BILIRUBIN,TOTAL 0.5 mg/dL (0.2-1); TOT PROT 6.9 g/dl (6.4-8.2)
[2023-11-05] MEDS: morphine CARPU-JECT 2 MG/1 ML DISP.SYRIN IVPUSH ONE (10:20)
[2023-11-05 10:32] LABS: URINE APPEARANCE CLEAR; URINE BILIRUBIN NEGATIVE (NEGATIVE); URINE COLOR YELLOW; URINE GLUCOSE (UA) NEGATIVE (NEGATIVE); URINE KETONE NEGATIVE (NEGATIVE); URINE LEUK ESTERASE NEGATIVE (NEGATIVE); URINE NITRITE NEGATIVE (NEGATIVE); URINE PROTEIN TRACE (NEGATIVE); URINE UROBILINOGEN 0.2 mg/dL (0.2-1.0)
[2023-11-05] MEDS ORDERED: HYDROmorphone HCl 2 MG/ML VIAL ONE (11:15)
[2023-11-05] MEDS: HYDROmorphone HCl 2 MG/ML VIAL IVPUSH ONE (11:26)
[2023-11-05 12:18] VITALS: PULSE 86
[2023-11-05 13:18] VITALS: BP 158/61
== END 2023-11-05 13:18 | disposition home or self-care (01) ==
LOC: JER 07:56
PROC: 3E033NZ Introduction of Analgesics, Hypnotics, Sedatives into Peripheral Vein, Percutaneous Approach (ICD-10-PCS; principal; 2023-11-05)
PROC: 3E033NZ Introduction of Analgesics, Hypnotics, Sedatives into Peripheral Vein, Percutaneous Approach (ICD-10-PCS; 2023-11-05)
PROC: 3E023NZ Introduction of Analgesics, Hypnotics, Sedatives into Muscle, Percutaneous Approach (ICD-10-PCS; 2023-11-05)
DX: R35.0 Frequency of micturition (principal); K62.5 Hemorrhage of anus and rectum; Z48.815 Encounter for surgical aftercare following surgery on the digestive system
CPT/HCPCS: 36415; 71045-TC-FY; 80053; 81003; 85025; 85610; 85730; 86850; 86900; 86901; 87086; 93005; 93010; 99285-25

== ENCOUNTER 2023-11-11 04:18 | Day surgery (SDC) | payer OTHER ==
[2023-11-07 16:37] VITALS: BMI 30.1
[2023-11-11] MEDS ORDERED: FENTANYL CITRATE/PF 50 MCG/ML VIAL ONE ×2 (12:35→13:04)
[2023-11-11] MEDS ORDERED: ONDANSETRON 4 MG/2 ML VIAL ONE (12:35)
[2023-11-11] MEDS ORDERED: MIDAZOLAM HCL 2 MG/2 ML SINGLE DOSE VIAL ONE ×2 (12:35→13:03)
[2023-11-11 13:45] VITALS: BP 121/64; RESP 16; TEMP 97.7
[2023-11-11 14:00] VITALS: PULSE 67
== END 2023-11-11 15:05 | disposition home or self-care (01) ==
LOC: JASU-SURG 04:18
PROVIDERS: ATTEND Urology
PROC: 0TF3XZZ Fragmentation in Right Kidney Pelvis, External Approach (ICD-10-PCS; principal; 2023-11-11 12:30)
DX: N20.0 Calculus of kidney (principal)

== ENCOUNTER 2023-11-25 18:11 | Inpatient (IN) | payer OTHER ==
[2023-11-25] MEDS ORDERED: PANTOPRAZOLE SODIUM 40 MG/100 ML BAG IVPB ONE (19:47)
[2023-11-25] MEDS ORDERED: ACETAMINOPHEN INJECTION 100 ML IVPB ONE (19:47)
[2023-11-25] MEDS: SODIUM CHLORIDE 500 ML IV STA (20:06)
[2023-11-25] MEDS: ACETAMINOPHEN 1000 MG/100 ML BAG IVPB ONE (20:06)
[2023-11-25] MEDS: PANTOPRAZOLE SODIUM 40 MG in SODIUM CHLORIDE 100 ML IVPB ONE (20:06)
[2023-11-25 20:13] LABS: BASO % 0.8 % (0-2.0); EOS % 2.6 % (0-4.5); HEMATOCRIT 28.4 % (35.4-49); HEMOGLOBIN 9.4 GM/dL (11.7-16.9); LYMPH % 22.8 % (8-40); MCH 28.4 pg (25.7-33.7); MCHC 32.9 g/dl (32.0-35.9); MEAN CELL VOLUME 86.2 fl (80-96); MEAN PLT VOLUME 9.4 fl (7.5-11.1); MONO % 9.5 % (3.8-10.2); NEUT % 64.3 % (42.8-82.8); PLATELET COUNT 172 10^3/uL (134-434); RDW 15.3 % (11.9-15.9); RETICULOCYTES 1.38 % (0.5-1.5); WHITE BLOOD COUNT 6.8 K/mm3 (4.0-10.0)
[2023-11-25 20:21] LABS: ACTIVATED PTT 32.5 SECONDS (25.2-36.5); INR 1.27 (0.83-1.09); PROTHROMBIN TIME (PATIENT) 14.2 SEC (9.7-13.0)
[2023-11-25 20:28] LABS: POTASSIUM 4.3 mmol/L (3.5-5.1)
[2023-11-25 20:30] LABS: CALCIUM 8.8 mg/dL (8.5-10.1)
[2023-11-25 20:31] LABS: ALBUMIN 3.4 g/dl (3.4-5.0)
[2023-11-25 20:34] LABS: CREATININE 1.4 mg/dL (0.55-1.3)
[2023-11-25 20:35] LABS: BILIRUBIN,TOTAL 0.3 mg/dL (0.2-1); TOT PROT 6.1 g/dl (6.4-8.2)
[2023-11-25 22:29] LABS: BASO % 0.8 % (0-2.0); EOS % 2.4 % (0-4.5); HEMATOCRIT 25.2 % (35.4-49); HEMOGLOBIN 8.1 GM/dL (11.7-16.9); LYMPH % 22.7 % (8-40); MCH 27.7 pg (25.7-33.7); MCHC 32.1 g/dl (32.0-35.9); MEAN CELL VOLUME 86.2 fl (80-96); MEAN PLT VOLUME 9.2 fl (7.5-11.1); MONO % 8.7 % (3.8-10.2); NEUT % 65.4 % (42.8-82.8); PLATELET COUNT 152 10^3/uL (134-434); RBC 2.93 M/mm3 (4.00-5.60); RDW 15.2 % (11.9-15.9); WHITE BLOOD COUNT 6.4 K/mm3 (4.0-10.0)
[2023-11-26] MEDS: SODIUM CHLORIDE 0.9% 500 ML INFUS.BAG IV ONE (00:10)
[2023-11-26] MEDS: LACTATED RINGERS SOLUTION 1,000 ML/1,000 ML INFUS.BAG IV STA (03:48)
[2023-11-26] MEDS: DEXTROSE 5%-0.45% SALINE 1,000 ML IV SCH ×2 (04:43→12:01)
[2023-11-26 06:04] LABS: URINE APPEARANCE CLEAR; URINE BILIRUBIN NEGATIVE (NEGATIVE); URINE COLOR YELLOW; URINE GLUCOSE (UA) NEGATIVE (NEGATIVE); URINE KETONE NEGATIVE (NEGATIVE); URINE LEUK ESTERASE NEGATIVE (NEGATIVE); URINE NITRITE NEGATIVE (NEGATIVE); URINE PROTEIN NEGATIVE (NEGATIVE); URINE UROBILINOGEN 0.2 mg/dL (0.2-1.0)
[2023-11-26] MEDS: SODIUM CHLORIDE 500 ML IV STA (06:15)
[2023-11-26] MEDS ORDERED: ACETAMINOPHEN INJECTION 100 ML IVPB ONE (06:27)
[2023-11-26] MEDS: ACETAMINOPHEN 1000 MG/100 ML BAG IVPB PRN (06:28)
[2023-11-26 06:31] LABS: BASO % 0.4 % (0-2.0); EOS % 2.2 % (0-4.5); HEMATOCRIT 28.2 % (35.4-49); HEMOGLOBIN 9.3 GM/dL (11.7-16.9); LYMPH % 18.3 % (8-40); MCH 28.5 pg (25.7-33.7); MCHC 33.1 g/dl (32.0-35.9); MEAN CELL VOLUME 85.9 fl (80-96); MEAN PLT VOLUME 9.3 fl (7.5-11.1); MONO % 8.4 % (3.8-10.2); NEUT % 70.7 % (42.8-82.8); PLATELET COUNT 142 10^3/uL (134-434); RBC 3.28 M/mm3 (4.00-5.60); RDW 14.6 % (11.9-15.9); WHITE BLOOD COUNT 8.4 K/mm3 (4.0-10.0)
[2023-11-26 06:58] LABS: POTASSIUM 3.5 mmol/L (3.5-5.1)
[2023-11-26 06:59] LABS: CALCIUM 8.5 mg/dL (8.5-10.1)
[2023-11-26 07:00] LABS: BLOOD UREA NITROGEN 15.1 mg/dL (7-18)
[2023-11-26 07:03] LABS: CREATININE 1.1 mg/dL (0.55-1.3)
[2023-11-26] MEDS: ACETAMINOPHEN 500 MG TABLET (FP) PO SCH (11:44)
[2023-11-26] MEDS: PANTOPRAZOLE SODIUM 40 MG VIAL IVPUSH SCH (11:52)
[2023-11-26 12:58] VITALS: BMI 29.7
[2023-11-26] MEDS: LABETALOL HCL 100 MG TABLET (FP) PO SCH (21:44)
[2023-11-27] MEDS ORDERED: ACETAMINOPHEN 325 MG TABLET (FP) PO PRN (02:15)
[2023-11-27 08:21] LABS: BASO % 0.5 % (0-2.0); EOS % 3.3 % (0-4.5); HEMATOCRIT 28.9 % (35.4-49); HEMOGLOBIN 9.6 GM/dL (11.7-16.9); LYMPH % 24.3 % (8-40); MCH 28.5 pg (25.7-33.7); MCHC 33.3 g/dl (32.0-35.9); MEAN CELL VOLUME 85.5 fl (80-96); MEAN PLT VOLUME 9.8 fl (7.5-11.1); MONO % 9.2 % (3.8-10.2); NEUT % 62.7 % (42.8-82.8); PLATELET COUNT 149 10^3/uL (134-434); RBC 3.38 M/mm3 (4.00-5.60); RDW 14.8 % (11.9-15.9)
[2023-11-27 08:24] LABS: POTASSIUM 3.6 mmol/L (3.5-5.1)
[2023-11-27 08:34] LABS: BLOOD UREA NITROGEN 7.6 mg/dL (7-18); CALCIUM 8.4 mg/dL (8.5-10.1); MAGNESIUM 1.9 mg/dL (1.8-2.4)
[2023-11-27 08:37] LABS: PHOSPHOROUS 3.3 mg/dL (2.5-4.9)
[2023-11-27 08:38] LABS: CREATININE 0.9 mg/dL (0.55-1.3)
[2023-11-27] MEDS: ENOXAPARIN NA (PORCINE) 80 MG/0.8 ML DISP.SYRIN SQ SCH (09:32)
[2023-11-27] MEDS: ESCITALOPRAM OXALATE 10 MG TABLET PO SCH (09:32)
[2023-11-27] MEDS: VALSARTAN 160 MG TABLET PO SCH (09:33)
[2023-11-27] MEDS: PANTOPRAZOLE 40 MG TABLET PO SCH (09:34)
[2023-11-27] MEDS: ROSUVASTATIN CA 5 MG TABLET PO SCH (09:34)
[2023-11-27] MEDS ORDERED: EZETIMIBE 10 MG TABLET (FP) PO SCH (10:00)
[2023-11-27] MEDS: EZETIMIBE 10 MG TABLET (FP) PO SCH (21:41)
[2023-11-28 07:23] LABS: HEMATOCRIT 28.6 % (35.4-49); HEMOGLOBIN 9.8 GM/dL (11.7-16.9); MCHC 34.1 g/dl (32.0-35.9); MEAN CELL VOLUME 85.1 fl (80-96); MEAN PLT VOLUME 10.2 fl (7.5-11.1); PLATELET COUNT 160 10^3/uL (134-434); RBC 3.36 M/mm3 (4.00-5.60); RDW 14.8 % (11.9-15.9); WHITE BLOOD COUNT 5.1 K/mm3 (4.0-10.0)
[2023-11-28 10:03] VITALS: BP 152/90; PULSE 73; RESP 18; TEMP 98.8
== END 2023-11-28 11:31 | disposition home or self-care (01) | DRG 253 ==
LOC: JER 18:11 → JERBED 22:36 → J4W 11-26 10:05
PROVIDERS: ADMIT Internal Medicine; ATTEND Family Medicine
PROC: 30233N1 Transfusion of Nonautologous Red Blood Cells into Peripheral Vein, Percutaneous Approach (ICD-10-PCS; principal; 2023-11-26)
DX: K92.2 Gastrointestinal hemorrhage, unspecified (principal); N40.0 Benign prostatic hyperplasia without lower urinary tract symptoms; K76.0 Fatty (change of) liver, not elsewhere classified; E78.00 Pure hypercholesterolemia, unspecified; I48.0 Paroxysmal atrial fibrillation; F32.A Depression, unspecified; I25.10 Atherosclerotic heart disease of native coronary artery without angina pectoris; Z95.5 Presence of coronary angioplasty implant and graft; K21.9 Gastro-esophageal reflux disease without esophagitis; K44.9 Diaphragmatic hernia without obstruction or gangrene; D62 Acute posthemorrhagic anemia; I42.8 Other cardiomyopathies
CPT/HCPCS: 36415; 36430; 74177-TC; 80048; 80053; 81003; 82272; 82728; 83540; 83550; 83735; 84100; 85025; 85027; 85045; 85610; 85730; 86850; 86900; 86901; 86922; 87086; 93005; 93010; 99285-25; J0131; P9058; Q9967

== ENCOUNTER 2024-01-24 16:47 | Observation (INO) | payer OTHER ==
[2024-01-24] MEDS ORDERED: ACETAMINOPHEN INJECTION 100 ML IVPB ONE (17:40)
[2024-01-24] MEDS ORDERED: MAG HYDROX/AL HYDROX/SIMETH 30 ML UNIT-DOSE CUP ONE (17:41)
[2024-01-24] MEDS ORDERED: FAMOTIDINE 20 MG/50 ML IVPB 20 MG/50 ML MG IVPB ONE (17:41)
[2024-01-24] MEDS: MAG HYDROX/AL HYDROX/SIMETH 30 ML UNIT-DOSE CUP PO ONE (18:04)
[2024-01-24] MEDS: FAMOTIDINE 20 MG/50 ML IVPB 20 MG/50 ML MG IVPB ONE (18:04)
[2024-01-24] MEDS: ACETAMINOPHEN 1000 MG/100 ML BAG IVPB ONE (18:04)
[2024-01-24 18:06] LABS: BASO % 0.9 % (0-2.0); EOS % 2.4 % (0-4.5); HEMATOCRIT 30.9 % (35.4-49); MCH 25.7 pg (25.7-33.7); MCHC 32.5 g/dl (32.0-35.9); MEAN CELL VOLUME 79.1 fl (80-96); MEAN PLT VOLUME 8.9 fl (7.5-11.1); MONO % 12.3 % (3.8-10.2); NEUT % 51.4 % (42.8-82.8); PLATELET COUNT 174 10^3/uL (134-434); RDW 16.5 % (11.9-15.9); WHITE BLOOD COUNT 4.8 K/mm3 (4.0-10.0)
[2024-01-24 18:16] LABS: INR 1.31 (0.83-1.09); PROTHROMBIN TIME (PATIENT) 14.7 SEC (9.7-13.0)
[2024-01-24 18:18] LABS: ACTIVATED PTT 31.3 SECONDS (25.2-36.5)
[2024-01-24 18:26] LABS: POTASSIUM 4.1 mmol/L (3.5-5.1)
[2024-01-24 18:28] LABS: ALBUMIN 3.1 g/dl (3.4-5.0); BLOOD UREA NITROGEN 19.9 mg/dL (7-18); CALCIUM 8.5 mg/dL (8.5-10.1); MAGNESIUM 1.7 mg/dL (1.8-2.4)
[2024-01-24 18:31] LABS: CREATININE 1.5 mg/dL (0.55-1.3)
[2024-01-24 18:33] LABS: BILIRUBIN,TOTAL 0.3 mg/dL (0.2-1); TOT PROT 6.5 g/dl (6.4-8.2)
[2024-01-24 18:37] LABS: N-TERMINAL BNP 163.2 pg/ml (5-125)
[2024-01-24] MEDS ORDERED: ASPIRIN 81 MG CHEWABLE TABLETS ONE (18:42)
[2024-01-24] MEDS ORDERED: MAGNESIUM 1GM/D5W - 1 GM/100 ML IVPB IVPB ONE (18:42)
[2024-01-24] MEDS: ASPIRIN 81 MG CHEWABLE TABLETS PO ONE (18:48)
[2024-01-24] MEDS ORDERED: SUCRALFATE 1 GM TABLET (FP) ONE (18:55)
[2024-01-24] MEDS: MAGNESIUM 1GM/D5W - 1 GM/100 ML IVPB IVPB ONE (19:23)
[2024-01-24] MEDS: SUCRALFATE 1 GM/10 ML UNIT DOSE CUPS PO ONE (19:31)
[2024-01-24] MEDS ORDERED: morphine SULFATE 4 MG/ML VIAL ONE (20:33)
[2024-01-24] MEDS: morphine SULFATE 4 MG/ML VIAL IVPUSH ONE (20:39)
[2024-01-24] MEDS: SODIUM CHLORIDE 0.9% 500 ML INFUS.BAG IV ONE (20:41)
[2024-01-24 23:35] VITALS: BMI 30.2
[2024-01-25] MEDS: ACETAMINOPHEN 1000 MG/100 ML BAG IVPB ONE (01:28)
[2024-01-25] MEDS: PANTOPRAZOLE 40 MG TABLET PO SCH ×2 (06:54→21:26)
[2024-01-25 09:05] LABS: BASO % 0.7 % (0-2.0); HEMATOCRIT 30.4 % (35.4-49); MCH 26.1 pg (25.7-33.7); MCHC 32.9 g/dl (32.0-35.9); MEAN CELL VOLUME 79.4 fl (80-96); MEAN PLT VOLUME 9.5 fl (7.5-11.1); MONO % 7.4 % (3.8-10.2); NEUT % 58.9 % (42.8-82.8); PLATELET COUNT 162 10^3/uL (134-434); RBC 3.83 M/mm3 (4.00-5.60); RDW 16.8 % (11.9-15.9); WHITE BLOOD COUNT 4.8 K/mm3 (4.0-10.0)
[2024-01-25 09:23] LABS: POTASSIUM 3.6 mmol/L (3.5-5.1)
[2024-01-25 09:25] LABS: CALCIUM 7.9 mg/dL (8.5-10.1)
[2024-01-25 09:26] LABS: ALBUMIN 3.1 g/dl (3.4-5.0); BLOOD UREA NITROGEN 12.2 mg/dL (7-18)
[2024-01-25 09:29] LABS: CREATININE 1.1 mg/dL (0.55-1.3)
[2024-01-25 09:30] LABS: BILIRUBIN,TOTAL 0.7 mg/dL (0.2-1); TOT PROT 6.4 g/dl (6.4-8.2)
[2024-01-25] MEDS ORDERED: LABETALOL HCL 100 MG TABLET (FP) PO SCH (10:00)
[2024-01-25] MEDS: VALSARTAN 160 MG TABLET PO SCH (10:32)
[2024-01-25] MEDS: LABETALOL HCL 200 MG TABLET (FP) PO SCH (10:32)
[2024-01-25] MEDS: ASPIRIN 81 MG CHEWABLE TABLETS PO SCH (10:33)
[2024-01-25] MEDS: APIXABAN 5 MG TABLET PO SCH (10:33)
[2024-01-25] MEDS: ESCITALOPRAM OXALATE 10 MG TABLET PO SCH (10:33)
[2024-01-25] MEDS: EZETIMIBE 10 MG TABLET (FP) PO SCH (10:34)
[2024-01-25] MEDS: ROSUVASTATIN CA 5 MG TABLET PO SCH (21:26)
[2024-01-26] MEDS: MAG HYDROX/AL HYDROX/SIMETH 30 ML UNIT-DOSE CUP PO SCH (01:07)
[2024-01-26] MEDS: MAG HYDROX/AL HYDROX/SIMETH -MYLANTA- ORAL SUSPENSION PO SCH (08:52)
[2024-01-26] MEDS: CHLORTHALIDONE 25 MG TABLET PO SCH (09:34)
[2024-01-26] MEDS: ACETAMINOPHEN 325 MG TABLET (FP) PO ONE (20:29)
[2024-01-27 08:26] LABS: BASO % 0.6 % (0-2.0); EOS % 1.8 % (0-4.5); HEMATOCRIT 33.5 % (35.4-49); HEMOGLOBIN 10.8 GM/dL (11.7-16.9); LYMPH % 22.6 % (8-40); MCH 25.9 pg (25.7-33.7); MCHC 32.3 g/dl (32.0-35.9); MEAN CELL VOLUME 80.1 fl (80-96); MEAN PLT VOLUME 9.6 fl (7.5-11.1); MONO % 7.9 % (3.8-10.2); NEUT % 67.1 % (42.8-82.8); PLATELET COUNT 178 10^3/uL (134-434); RBC 4.18 M/mm3 (4.00-5.60); WHITE BLOOD COUNT 6.8 K/mm3 (4.0-10.0)
[2024-01-27 08:30] LABS: IRON SERUM 48 ug/dL (50-175); TOTAL IRON BINDING CAPACITY 445 ug/dL (250-450)
[2024-01-27] MEDS ORDERED: REGADENOSON 0.4 MG/5 ML PRE-FILLED SYRINGE IVPUSH ONE (09:15)
[2024-01-27] MEDS: CHLORTHALIDONE 25 MG TABLET PO SCH (10:16)
[2024-01-27] MEDS: REGADENOSON 0.4 MG/5 ML PRE-FILLED SYRINGE IVPUSH ONE (10:50)
[2024-01-27] MEDS: IRON SUCROSE INJECTION 200 MG in SODIUM CHLORIDE 100 ML IVPB ONE (10:52)
[2024-01-27] MEDS: SUCRALFATE 1 GM/10 ML UNIT DOSE CUPS PO SCH ×2 (13:50→17:33)
[2024-01-27 19:02] VITALS: BP 132/81; PULSE 73; RESP 17; TEMP 98
== END 2024-01-27 18:56 | disposition left against medical advice (07) ==
LOC: JER 16:47 → JERBED 20:06 → J4S 23:21
PROVIDERS: ADMIT Internal Medicine; ATTEND Family Medicine
PROC: 3E0337Z Introduction of Electrolytic and Water Balance Substance into Peripheral Vein, Percutaneous Approach (ICD-10-PCS; principal; 2024-01-24)
PROC: 3E033NZ Introduction of Analgesics, Hypnotics, Sedatives into Peripheral Vein, Percutaneous Approach (ICD-10-PCS; 2024-01-24)
DX: R07.9 Chest pain, unspecified (principal); I10 Essential (primary) hypertension; I48.0 Paroxysmal atrial fibrillation; E78.5 Hyperlipidemia, unspecified; J45.909 Unspecified asthma, uncomplicated; I25.10 Atherosclerotic heart disease of native coronary artery without angina pectoris; Z86.73 Personal history of transient ischemic attack (TIA), and cerebral infarction without residual deficits; K21.9 Gastro-esophageal reflux disease without esophagitis; K44.9 Diaphragmatic hernia without obstruction or gangrene; Z88.8 Allergy status to other drugs, medicaments and biological substances
CPT/HCPCS: 36415; 71045-TC-FY; 78452-TC; 80053; 82728; 83540; 83550; 83735; 83880; 84484; 85025; 85610; 85730; 93005; 93010; 93017; 93306-TC; 96361; 96365; 96367; 96375; 96376; 99285-25; A9502; G0378; J0131; J1756; J2785

== ENCOUNTER 2024-02-04 14:04 | Emergency (ER) | payer OTHER ==
[2024-02-04] MEDS ORDERED: KETOROLAC TROMETHAMINE 30 MG/1 ML VIAL ONE (14:58)
[2024-02-04] MEDS: KETOROLAC TROMETHAMINE 30 MG/1 ML VIAL IM ONE (15:02)
[2024-02-04 15:07] VITALS: BP 146/88; PULSE 90; RESP 18; TEMP 98.5; BMI 30.1
== END 2024-02-04 16:41 | disposition home or self-care (01) ==
LOC: JERFT 14:04
PROC: 3E0233Z Introduction of Anti-inflammatory into Muscle, Percutaneous Approach (ICD-10-PCS; principal; 2024-02-04)
DX: S66.911A Strain of unspecified muscle, fascia and tendon at wrist and hand level, right hand, initial encounter (principal); S66.912A Strain of unspecified muscle, fascia and tendon at wrist and hand level, left hand, initial encounter; V43.52XA Car driver injured in collision with other type car in traffic accident, initial encounter; Y92.410 Unspecified street and highway as the place of occurrence of the external cause
CPT/HCPCS: 73110-TC-LT-FY; 73110-TC-RT-FY; 96372; 99284-25

== ENCOUNTER 2024-04-13 04:25 | Day surgery (SDC) | payer OTHER ==
[2024-04-08 13:19] VITALS: BMI 30.1
[2024-04-13 10:56] VITALS: RESP 20
[2024-04-13] MEDS ORDERED: MIDAZOLAM HCL 2 MG/2 ML SINGLE DOSE VIAL ONE (13:18)
[2024-04-13] MEDS ORDERED: ONDANSETRON 4 MG/2 ML VIAL ONE (13:41)
[2024-04-13 14:12] VITALS: BP 171/81; PULSE 76; TEMP 97.8
== END 2024-04-13 14:42 | disposition home or self-care (01) ==
LOC: JASU-SURG 04:25
PROVIDERS: ATTEND Urology
PROC: 0TF3XZZ Fragmentation in Right Kidney Pelvis, External Approach (ICD-10-PCS; principal; 2024-04-13 13:39)
DX: Z53.09 Procedure and treatment not carried out because of other contraindication (principal); N20.0 Calculus of kidney

== ENCOUNTER 2024-06-08 05:09 | Day surgery (SDC) | payer OTHER ==
[2024-06-04 16:13] VITALS: BMI 30.1
[2024-06-08 10:05] VITALS: RESP 18
[2024-06-08] MEDS ORDERED: MIDAZOLAM HCL 2 MG/2 ML SINGLE DOSE VIAL ONE ×2 (10:50→11:00)
[2024-06-08] MEDS ORDERED: PROPOFOL 20 ML ONE (11:04)
[2024-06-08 11:33] VITALS: TEMP 98.6
[2024-06-08 11:54] VITALS: BP 129/61; PULSE 69
== END 2024-06-08 12:25 | disposition home or self-care (01) ==
LOC: JASU-SURG 05:09
PROVIDERS: ATTEND Urology
PROC: 0TF3XZZ Fragmentation in Right Kidney Pelvis, External Approach (ICD-10-PCS; principal; 2024-06-08 11:02)
DX: N20.0 Calculus of kidney (principal)